=== PATIENT | female | born 1930 | race Caucasian/White ===

== ENCOUNTER 2019-04-17 19:08 | Emergency (ER) | payer MEDICARE ==
--- NOTE | 2019-04-17 19:38 | RADIOLOGY REPORT (SQ) ---
EXAM DESCRIPTION: CT HEAD WITHOUT COMPLETED DATE/TIME: 04/17/2019 7:20 pm REASON FOR STUDY: STROKE ALERT COMPARISON: 05/05/2012 TECHNIQUE: Axial images acquired through the brain without intravenous contrast. Images reviewed wit h bone, brain and subdural windows. Images stored on PACS. All CT scanners at this facility use dose modulation, iterative reconstruction, and/or weight based d osing when appropriate to reduce radiation dose to as low as reasonably achievable (ALARA). [facility]: Dose Right [facility]: CareDose [facility]: Dose Right [facility]: Teradose 4D [facility]: Smart GoodData RADIATION DOSE: CT Rad equipment meets quality standard of care and radiation dose reduction techniq ues were employed. CTDIvol: 53.2 - 55.2 mGy. DLP: 2074 mGy-cm.. LIMITATIONS: None. FINDINGS: VENTRICLES: Stable. CEREBRUM: Similar calcified left occipital lobe lesion. No hemorrhage. No midline shift. Small vess el ischemic changes in the white matter. No evidence for acute large vessel infarction. CEREBELLUM: No masses. No hemorrhage. No alteration of density. No evidence for acute infarction. EXTRA-AXIAL SPACES: No fluid collections. ORBITS AND GLOBE: No intra- or extraconal masses. Normal contour of globe without masses. CALVARIUM: No fracture. PARANASAL SINUSES: No fluid or mucosal thickening. SOFT TISSUES: No mass or hematoma. OTHER: No other significant finding. IMPRESSION: Similar calcified left occipital lobe lesion. No hemorrhage. No midline shift. Small v essel ischemic changes in the white matter. No evidence for acute large vessel infarction. EVIDENCE OF ACUTE STROKE: NO. COMMENT: Results called to Dr. Valladares at 1932 hours. TECHNICAL DOCUMENTATION: JOB ID: [id number] [place]-72 Quality ID # [id number]: Final reports with documentation of one or more dose reduction techniques (e.g., Au tomated exposure control, adjustment of the mA and/or kV according to patient size, use of iterative reconstruction technique) 2010 [employer]- All Rights Reserved Reading location - IP/workstation name: [employer]
[2019-04-17 19:45] LABS: INTERNATIONAL RATION (INR) 0.99; PROTHROMBIN TIME 13.1 SEC (11.4-15.4)
--- NOTE | 2019-04-17 19:45 | RADIOLOGY REPORT (SQ) ---
EXAM DESCRIPTION: CHEST SINGLE VIEW COMPLETED DATE/TIME: 04/17/2019 7:22 pm REASON FOR STUDY: STROKE ALERT COMPARISON: 04/26/2015 TECHNIQUE: Single frontal radiographic view of the chest acquired. NUMBER OF VIEWS: One view. LIMITATIONS: None. FINDINGS: LUNGS AND PLEURA: No pneumothorax. Left basilar consolidation - pleural effusion. Increa sed interstitial changes. MEDIASTINUM AND HILAR STRUCTURES: Stable. HEART AND VASCULAR STRUCTURES: Stable. BONES: No acute findings. HARDWARE: None in the chest. OTHER: No other significant finding. IMPRESSION: Left basilar consolidation - pleural effusion. TECHNICAL DOCUMENTATION: JOB ID: [id number] [place]-72 2010 [employer]- All Rights Reserved Reading location - IP/workstation name: [email or web address]
[2019-04-17 19:46] LABS: PARTIAL THROMBOPLASTIN TIME 28.2 SEC (23.5-35.8)
[2019-04-17 19:58] LABS: ALBUMIN 3.4 g/dL (3.5-5.0); ALKALINE PHOSPHATASE 96 U/L (38-126); ANION GAP 5 (5-19); ASPARTATE AMINO TRANSFERASE 21 U/L (14-36); BILIRUBIN,DIRECT 0.3 mg/dL (0.0-0.4); BILIRUBIN,TOTAL 0.4 mg/dL (0.2-1.3); BLOOD UREA NITROGEN 17 mg/dL (7-20); CALCIUM 8.6 mg/dL (8.4-10.2); CARBON DIOXIDE 31 mmol/L (22-30); CHLORIDE 102 mmol/L (98-107); CREATINE KINASE 20 U/L (30-135); GLUCOSE 108 mg/dL (75-110); TOTAL PROTEIN 6.7 g/dL (6.3-8.2)
[2019-04-17 20:00] LABS: ABSOLUTE EOSINOPHILS # (AUTO) 0.2 10^3/uL (0.0-0.6); ABSOLUTE LYMPHOCYTES (AUTO) 1.3 10^3/uL (0.5-4.7); ABSOLUTE MONOCYTES (AUTO) 0.4 10^3/uL (0.1-1.4); ABSOLUTE NEUT (AUTO) 4.1 10^3/uL (1.7-8.2); BASOPHILS % (AUTO) 0.6 % (0-2); EOSINOPHILS % (AUTO) 3.7 % (0-6); HEMATOCRIT 36.2 % (36.0-47.0); HEMOGLOBIN 11.7 g/dL (12.0-15.5); LYMPHOCYTES % (AUTO) 21.1 % (13-45); MEAN CORPUSCULAR HEMOGLOBIN 28.8 pg (27.0-33.4); MEAN CORPUSCULAR HGB CONC 32.3 g/dL (32.0-36.0); MEAN CORPUSCULAR VOLUME 89 fl (80-97); MONOCYTES % (AUTO) 6.7 % (3-13); PLATELET COUNT 252 10^3/uL (150-450); RED BLOOD COUNT 4.06 10^6/uL (3.72-5.28); RED CELL DISTRIBUTION WIDTH 14.7 % (11.5-14.0); SEGMENTED NEUTROPHILS % (AUTO) 67.9 % (42-78); TOTAL CELLS COUNTED % (AUTO) 100 %; WHITE BLOOD COUNT 6.1 10^3/uL (4.0-10.5)
--- NOTE | 2019-04-17 20:11 | ER Document Report ---
ED General - General Chief Complaint: S/S of Possible Stroke Stated Complaint: STROKE LIKE SYMPTOMS Time Seen by Provider: 04/17/19 19:23 Primary Care Provider: FEDERICA ONEAL FNP-BC [NO LOCAL MD] - Follow up as needed MINNIE CASTRO MD [Primary Care Provider] - Follow up tomorrow Mode of Arrival: Ambulatory Information source: Patient Notes: 88-year-old female with dementia, bipolar disorder, congestive heart failure, hyperlipidemia, atrial fibrillation, hypertension, coronary artery disease presents via EMS from home with concern for left-sided weakness. Patient is unable to answer questions or follow commands which the son reports is her baseline. The son is at the bedside and states that approximately 4-hour ago they attempted to walk the patient to the bathroom when she seemed weaker than usual. He states that the patient walks with assistance only and usually only requires minimal help but today she seemed more off balance. Patient is a DO NOT RESUSCITATE as far as chest compressions but son states that intubation is allowed. He denies any recent illness, fever, vomiting, dysuria. He states the patient has otherwise been well. He also states that the patient is able to complain of pain if she has it. Son reports that his goal is to bring the patient home with him as he is able to provide home health and physical therapy. TRAVEL OUTSIDE OF THE [place] IN LAST 30 DAYS: No - HPI Onset: This afternoon Quality of pain: No pain Associated symptoms: Weakness Similar symptoms previously: Yes - Related Data Allergies/Adverse Reactions: haloperidol [From Haldol] Allergy (Verified 06/12/12 19:02) haloperidol lactate [From Haldol] Allergy (Verified 06/12/12 19:02) Past Medical History - General Information source: Relative, Emergency Med Personnel, [facility] Records Cannot obtain history due to: Dementia - Social History Smoking Status: Never Smoker Frequency of alcohol use: None Drug Abuse: None Lives with: Family Family History: Reviewed & Not Pertinent Patient has suicidal ideation: No Patient has homicidal ideation: No - Past Medical History Cardiac Medical History: Reports: Hx Atrial Fibrillation, Hx Congestive Heart Failure, Hx Hypertension Denies: Hx Coronary Artery Disease, Hx Heart Attack, Hx Hypercholesterolemia, Hx Peripheral Vascular Disease, Hx Heart Murmur Pulmonary Medical History: Reports: Hx Respiratory Failure Denies: Hx Tuberculosis Renal/ Medical History: Denies: Hx End Stage Renal Disease, Hx Kidney Stones, Hx Peritoneal Dialysis Musculoskeletal Medical History: Reports Hx Arthritis Psychiatric Medical History: Reports: Hx Bipolar Disorder, Hx Dementia Past Surgical History: Reports: Hx Bowel Surgery - bowel resection, Hx Kidney (Renal Surgery) - 1 kidney removed. Denies: Hx Pacemaker - Immunizations Hx Diphtheria, Pertussis, Tetanus Vaccination: Yes Review of Systems - Review of Systems -: Yes ROS unobtainable due to patient's medical condition Constitutional: Weakness. denies: Fever, Recent illness Physical Exam - Vital signs Vitals: Pulse Resp BP Pulse Ox 76 16 166/75 H 95 04/17/19 19:18 04/17/19 19:18 04/17/19 19:18 04/17/19 19:18 - Notes Notes: PHYSICAL EXAMINATION: GENERAL: Thin, frail, cachectic HEAD: Atraumatic, normocephalic. EYES: Pupils equal round and reactive to light, extraocular movements intact, conjunctiva are normal. ENT: Nares patent, oropharynx clear without exudates. Moist mucous membranes. NECK: Normal range of motion, supple without lymphadenopathy LUNGS: Breath sounds clear to auscultation bilaterally and equal. No wheezes rales or rhonchi. HEART: Regular rate and rhythm without murmurs ABDOMEN: Soft, nontender, nondistended abdomen. No guarding, no rebound. No masses appreciated. Female : deferred Musculoskeletal: Normal range of motion, no pitting or edema. No cyanosis. NEUROLOGICAL: patient is alert, awake but will not follow commands. She will occasionally follow her son's commands. NIH unable to obtain due to patient's being uncooperative. PSYCH: Agitated SKIN: Warm, Dry, normal turgor, no rashes or lesions noted. Course - Re-evaluation Re-evalutation: Laboratory 04/17/19 04/17/19 04/17/19 19:15 19:15 19:15 WBC RBC Hgb Hct MCV MCH MCHC RDW Plt Count Seg Neutrophils % Lymphocytes % Monocytes % Eosinophils % Basophils % Absolute Neutrophils Absolute Lymphocytes Absolute Monocytes Absolute Eosinophils Absolute Basophils PT 13.1 INR 0.99 APTT 28.2 Sodium 137.6 Potassium 5.0 Chloride 102 Carbon Dioxide 31 H Anion Gap 5 BUN 17 Creatinine 0.58 Est GFR ( Amer) > 60 Est GFR (Non-Af Amer) > 60 Glucose 108 POC Glucose Calcium 8.6 Total Bilirubin 0.4 Direct Bilirubin 0.3 Neonat Total Bilirubin Not Reportable Neonat Direct Bilirubin Not Reportable Neonat Indirect Bili Not Reportable AST 21 ALT 7 Alkaline Phosphatase 96 Creatine Kinase 20 L CK-MB (CK-2) < 0.22 Troponin I < 0.012 Total Protein 6.7 Albumin 3.4 L 04/17/19 04/17/19 19:50 19:58 WBC 6.1 RBC 4.06 Hgb 11.7 L Hct 36.2 MCV 89 MCH 28.8 MCHC 32.3 RDW 14.7 H Plt Count 252 Seg Neutrophils % 67.9 Lymphocytes % 21.1 Monocytes % 6.7 Eosinophils % 3.7 Basophils % 0.6 Absolute Neutrophils 4.1 Absolute Lymphocytes 1.3 Absolute Monocytes 0.4 Absolute Eosinophils 0.2 Absolute Basophils 0.0 PT INR APTT Sodium Potassium Chloride Carbon Dioxide Anion Gap BUN Creatinine Est GFR ( Amer) Est GFR (Non-Af Amer) Glucose POC Glucose 112 H Calcium Total Bilirubin Direct Bilirubin Neonat Total Bilirubin Neonat Direct Bilirubin Neonat Indirect Bili AST ALT Alkaline Phosphatase Creatine Kinase CK-MB (CK-2) Troponin I Total Protein Albumin Chest X-Ray 04/17/19 00:00 IMPRESSION: Left basilar consolidation - pleural effusion. Head CT 04/17/19 00:00 IMPRESSION: Similar calcified left occipital lobe lesion. No hemorrhage. No midline shift. Small vessel ischemic changes in the white matter. No evidence for acute large vessel infarction. EVIDENCE OF ACUTE STROKE: NO. Temp Pulse Resp BP Pulse Ox 76 15 169/59 H 97 04/17/19 19:18 04/17/19 21:01 04/17/19 21:01 04/17/19 21:01 04/17/19 21:14 88-year-old female with dementia, bipolar disorder, congestive heart failure, hyperlipidemia, atrial fibrillation, hypertension, coronary artery disease presents via EMS from home with concern for left-sided weakness. Patient is unable to answer questions or follow commands which the son reports is her baseline. The son is at the bedside and states that approximately 4-5 hours ago they attempted to walk the patient to the bathroom when she seemed weaker than usual. He states that the patient walks with assistance only and usually only requires minimal help but today she seemed more off balance. Patient is a DO NOT RESUSCITATE as far as chest compressions but son states that intubation is allowed. He denies any recent illness, fever, vomiting, dysuria. He states the patient has otherwise been well. He also states that the patient is able to complain of pain if she has it. Son reports that his goal is to bring the patie nt home with him as he is able to provide home health and physical therapy. Vital signs reviewed and patient is mildly hypertensive but afebrile and not hypoxic. She is awake, alert and uncooperative with history and exam but does not appear to be in any acute distress. Discussed incidental finding of left- sided pleural effusion with the patient's son who is the primary caregiver and he states that they have been backing off of her Lasix recently. He does not want admission to the hospital and would like to follow-up with his primary care physician Dr. Marlo Sainz. He is requesting discharge prior to completion of labs. I have agreed to call the son if pending urinalysis requires treatment at [phone] 04/18/19 01:50 04/18/19 01:51 - Vital Signs Vital signs: Temp Pulse Resp BP Pulse Ox 76 17 169/59 H 96 04/17/19 19:18 04/17/19 21:30 04/17/19 21:01 04/17/19 21:30 - Laboratory Result Diagrams: 04/17/19 19:50 04/17/19 19:15 Laboratory results interpreted by me: 04/17/19 04/17/19 04/17/19 19:15 19:50 19:58 Hgb 11.7 L RDW 14.7 H Carbon Dioxide 31 H POC Glucose 112 H Creatine Kinase 20 L Albumin 3.4 L - Diagnostic Test Radiology reviewed: Image reviewed, Reports reviewed - EKG Interpretation by Me EKG shows normal: Sinus rhythm Rate: Normal [place]/QRS: LBBB When compared to previous EKG there are: No significant change Discharge - Discharge Clinical Impression: Weakness, Stroke-like symptoms, Pleural effusion Dementia Qualifiers: Dementia type: unspecified type Dementia behavioral disturbance: without behavioral disturbance Qualified Code(s): F03.90 - Unspecified dementia without behavioral disturbance Condition: Fair Disposition: HOME, SELF-CARE Instructions: Dementia ([facility]), Pleural Effusion ([facility]), Stroke ([facility]), Weakness ([facility]) Additional Instructions: Follow up with your [id number] hours for further care or return to the ED IMMEDIATELY if symptoms worsen or you have any concerns. If you cannot afford to follow up with your primary care physician a list of low cost clinics have been provided at the end of your discharge papers as well. Most prescribed medications have multiple side effects. The safest thing to do is when filling your prescription speak to your pharmacist regarding possible interactions with your normal home medications and over the counter medications such as Ibuprofen, Tylenol, Benadryl. If you experience any symptoms that cause you discomfort or concern you should discontinue the medication immediately and return to the emergency room or call your primary care physician. Forms: Elevated Blood Pressure Referrals: FEDERICA ONEAL FNP- [NO LOCAL MD] - Follow up as needed MINNIE CASTRO MD [Primary Care Provider] - Follow up tomorrow
[2019-04-17 20:12] LABS: CREATINE KINASE MB < 0.22 ng/mL (<4.55); TROPONIN I < 0.012 ng/mL
[2019-04-17 21:09] LABS: APPEARANCE,URINE CLEAR; BILIRUBIN,URINE NEGATIVE (NEGATIVE); COLOR,URINE YELLOW; GLUCOSE, URINE NEGATIVE (NEGATIVE); KETONES,URINE NEGATIVE (NEGATIVE); LEUKOCYTE ESTERASE,URINE NEGATIVE (NEGATIVE); NITRITE,URINE NEGATIVE (NEGATIVE); PROTEIN,URINE NEGATIVE (NEGATIVE); URINE SPECIFIC GRAVITY 1.008; UROBILINOGEN,URINE NEGATIVE mg/dL (<2.0)
[2019-04-17 21:13] VITALS: BP 169/59
[2019-04-17 21:16] LABS: ADD MANUAL MICROSCOPIC YES
[2019-04-17 21:17] LABS: AMORPHOUS SEDIMENT,UR 1+; RBC,URINE RARE /HPF
--- NOTE | 2019-04-18 08:06 | EKG REPORT ---
SEVERITY:- ABNORMAL ECG - SINUS RHYTHM LEFT BUNDLE BRANCH BLOCK : Confirmed by: Bassam Bear MD 18-Apr-2019 08:06:10
== END 2019-04-17 22:00 | disposition home or self-care (01) ==
LOC: ER 19:08
DX: F03.90 Unspecified dementia, unspecified severity, without behavioral disturbance, psychotic disturbance, mood disturbance, and anxiety (principal); J90 Pleural effusion, not elsewhere classified; R53.1 Weakness; I50.9 Heart failure, unspecified; I11.0 Hypertensive heart disease with heart failure; I25.10 Atherosclerotic heart disease of native coronary artery without angina pectoris
CPT/HCPCS: 36415; 51701; 70450; 71045; 80053; 81001; 82550; 82553; 82962; 84484; 85025; 85610; 85730; 93005; 93010; 99285

== ENCOUNTER 2019-05-04 04:44 | Inpatient (IN) | payer MEDICARE ==
[2019-05-04] MEDS ORDERED: NORMAL SALINE 500 ML IV ONE ×2 (05:05→05:06)
--- NOTE | 2019-05-04 05:11 | ER Document Report ---
ED General <PAM EID Cristian - Last Filed: 05/04/19 05:39> - General TRAVEL OUTSIDE OF THE [place] IN LAST 30 DAYS: No <KARLA URIBE - Last Filed: 05/04/19 08:41> - General Stated Complaint: DIFFICULTY BREATHING Time Seen by Provider: 05/04/19 05:01 Notes: Patient is an 88-year-old female that comes emergency department by EMS from home for chief complaint of weakness and decreased responsiveness since last night. Patient was found to be hypoxic at 84% on room air, tachycardic, hypotensive. EMS unable to get vascular access. Son did come to bedside, he was with the patient, he states she had a stroke 2 weeks ago but she does not have any of the left-sided deficit she had at that time, she has a history of CHF, bipolar, medications include digoxin, methadone, Risperdal, aspirin. She i s normal blood thinner, she does not have a history of diabetes or [place]. He states that he does not have DNR paperwork but he is power of dental office coordinator and he does not want to perform CPR or intubate her. (KARLA URIBE) - Related Data Allergies/Adverse Reactions: haloperidol [From Haldol] Allergy (Verified 06/12/12 19:02) haloperidol lactate [From Haldol] Allergy (Verified 06/12/12 19:02) Past Medical History - General Information source: Relative, Emergency Med Personnel - Social History Smoking Status: Never Smoker Frequency of alcohol use: None Drug Abuse: None Lives with: Family Family History: Reviewed & Not Pertinent - Past Medical History Cardiac Medical History: Reports: Hx Atrial Fibrillation, Hx Congestive Heart Failure, Hx Hypertension Denies: Hx Coronary Artery Disease, Hx Heart Attack, Hx Hypercholesterolemia, Hx Peripheral Vascular Disease, Hx Heart Murmur Pulmonary Medical History: Reports: Hx Respiratory Failure Denies: Hx Tuberculosis Renal/ Medical History: Denies: Hx End Stage Renal Disease, Hx Kidney Stones, Hx Peritoneal Dialysis Musculoskeletal Medical History: Reports Hx Arthritis Psychiatric Medical History: Reports: Hx Bipolar Disorder, Hx Dementia Past Surgical History: Reports: Hx Bowel Surgery - bowel resection, Hx Kidney (Renal Surgery) - 1 kidney removed. Denies: Hx Pacemaker - Immunizations Hx Diphtheria, Pertussis, Tetanus Vaccination: Yes <KARLA URIBE - Last Filed: 05/04/19 08:41> Review of Systems - Review of Systems Constitutional: See HPI EENT: No symptoms reported Cardiovascular: No symptoms reported Respiratory: See HPI Gastrointestinal: No symptoms reported Genitourinary: No symptoms reported Female Genitourinary: No symptoms reported Musculoskeletal: No symptoms reported Skin: No symptoms reported Hematologic/Lymphatic: No symptoms reported Neurological/Psychological: No symptoms reported <RONYKARLA - Last Filed: 05/04/19 08:41> Physical Exam <KARLA URIBE - Last Filed: 05/04/19 08:41> - Vital signs Vitals: Resp 05/04/19 04:50 - Notes Notes: GENERAL: Extremely frail, pale, in respiratory distress, very toxic and ill in appearance HEAD: Normocephalic, atraumatic. EYES: Pupils equal, round, and reactive to light. Extraocular movements intact. ENT: Oral mucosa dry, tongue midline. Oropharynx unremarkable. Airway patent. Nares patent, no nasal septal hematoma LUNGS: Labored breathing, tachypnea, some rhonchi and decreased breath sounds in the mid to lower left lung brown, otherwise clear. HEART: Tachycardic, normal rhythm, no murmur ABDOMEN: Soft, non-tender. Non-distended. GENITOURINARY: No concerning external findings EXTREMITIES: Moves all 4 extremities spontaneously. No edema, normal radial and dorsalis pedis pulses bilaterally. No cyanosis. BACK: no cervical, thoracic, lumbar midline tenderness. NEUROLOGICAL: Alert responsive, answers yes to every question normal speech. SKIN: Pale (BENJAMIN URIBEAN) Course - Laboratory Result Diagrams: 05/04/19 04:55 05/04/19 04:55 <PAM EID - Last Filed: 05/04/19 05:39> - Laboratory Result Diagrams: 05/04/19 04:55 05/04/19 04:55 <KARLA URIBE - Last Filed: 05/04/19 08:41> - Re-evaluation Re-evalutation: 05/04/19 05:39 I personally and independently obtained patient history and examined the patient and have reviewed the APC's note, reviewed, discussed and agree with their assessment and plan. HISTORY OF PRESENT ILLNESS: Patient is a 88-year-old female that presents to the emergency department for chief complaint of weakness. Patient's son at bedside who is power of dental office coordinator. PHYSICAL EXAMINATION: Vital signs reviewed, nursing noted reviewed. GENERAL: Ill-appearing, cachectic, in moderate distress HEAD: Atraumatic, normocephalic. EYES: Eyes appear normal, conjunctiva are normal. ENT: nares patent, oropharynx clear without exudates. Dry mucous membranes. NECK: Normal range of motion, supple without lymphadenopathy LUNGS: Breath sounds diminished to auscultation bilaterally and equal. No wheezes rales or rhonchi. HEART: Tachycardic rate and regular rhythm without murmurs ABDOMEN: Soft, nontender, normoactive bowel sounds. No rebound, guarding, or rigidity. No masses appreciated. EXTREMITIES: Nontender, good range of motion, no pitting or edema. NEUROLOGICAL: Alert, oriented to person PSYCH: Normal mood, normal affect. SKIN: Warm, Dry, normal turgor, no rashes or lesions noted on exposed MEDICAL DECISION MAKING: Patient presented tachycardic and hypotensive in respiratory distress and hypoxic. She was put on BiPAP for respiratory support. Patient's presenting picture is consistent with septic shock. She was started on a 30 mg /kg bolus of IV normal saline for her tachycardia and hypotension. I did have a lengthy code conversation with patient's son who is her power of dental office coordinator. He wishes for her to be DNR and DO NOT INTUBATE. Patient's son is okay with her receiving central line, blood products, antibiotics and pressors if needed. Patient started on broad-spectrum antibiotics and will be admitted for further management Please review detail APC documentation. *Note is created using voice recognition software and may contain spelling, syntax or grammatical errors. (PAM EID) Patient is extremely ill-appearing on presentation. On 5 L nasal cannula patient was at 91% pulse oxygenation with labored breathing, as result she was placed on BiPAP. She is hypotensive in the 80s systolic, tachycardic in the 140s, afebrile. Started her on initial 500 cc bolus, she will be given a second 1 afterwards. She is only 29 kg. 22-gauge peripheral IV and 18-gauge periphe ral IV in the foot were started. Patient initially responded to fluids and now her map has continued to decline. CBC shows leukocytosis at 39.5 with 11% bands. Borderline renal functioning. Potassium is 5.9. QTC slightly prolonged. Giving treatments including insulin, calcium gluconate, dextrose. Patient has been started on vancomycin and Zosyn for broad-spectrum coverage. Patient has been evaluated more than once by Dr. Eid. She discussed with the son, DNR paperwork was performed. However he is still hoping that she will survive this, he is hoping for central line and pressors if needed. Because her map is consistently under 65 now despite fluid resuscitation I did place a central line and Levophed was started. After all interventions were completed patient actually significantly improved, heart rate is now 90, blood pressure 100 systolic, pulse oxygen saturation 97%, and she does not have labored breathing any longer. Chest x-ray indicating probable pneumonia. Urinalysis pending but urine appears infected on Weathers catheter. Will discuss with hospitalist for admission. Discussed details with the son at bedside. Urinalysis does show significant infection, culture placed. 05/04/19 07:30 Discussed with Luiz Powell PA-C, patient accepted for admission to the ICU. (KARLA URIBE) - Vital Signs Vital signs: Temp Pulse Resp BP Pulse Ox 18 93/43 L 98 05/04/19 07:05 05/04/19 07:05 05/04/19 07:05 - Laboratory Laboratory results interpreted by me: 05/04/19 05/04/19 05/04/19 04:55 04:55 06:36 WBC 39.5 H* Hgb 10.8 L Hct 32.8 L RDW 14.7 H Seg Neuts % (Manual) 81 H Band Neutrophils % 11 H Lymphocytes % (Manual) 7 L Monocytes % (Manual) 1 L Abs Neuts (Manual) 36.3 H Sodium 134.0 L Potassium 5.9 H BUN 54 H Creatinine 1.43 H Est GFR ( Amer) 42 L Est GFR (MDRD) Non-Af 35 L Glucose 116 H Direct Bilirubin 0.7 H AST 52 H Albumin 3.0 L Lipase 16.6 L Urine Protein >=500 H Urine Blood SMALL H Ur Leukocyte Esterase MODERATE H Procedures - Central Line right femoral Time completed: 06:30 Consent obtained: Yes - son, verbal Central line pre-insertion: Sterile PPE donned, Chloraprep applied, Sterile drapes applied Central line lumen type: Triple Anesthetic type: 1% Lidocaine mL's of anesthesia: 3 Ultrasound guided: Yes Line secured with sutures: Yes Central line post-insertion: Blood return from lumens, Biopatch applied, Sutured, Sterile dressing applied Number of attempts: 1 Complications: No <KARLA URIBE - Last Filed: 05/04/19 08:41> Critical Care Note - Critical Care Note Total time excluding time spent on procedures (mins): 50 - Hypotension, tachycardia, hypoxia, pneumonia, urinary tract infection, hyperkalemia, septic shock <KARLA URIBE - Last Filed: 05/04/19 08:41> - Critical Care Note Comments: Please allow 50 minutes of critical care time excluding time spent on procedures for evaluation and management of patient who is critically ill with septic shock, hypoxia, hypotension, tachycardia, hyperkalemia, pneumonia, urinary tract infection. Patient interventions including BiPAP, treatment of hyperkalemia, treatment with antibiotics, IV fluid resuscitation, multiple re-evaluations, time spent discussing with family member, consultation and admission to the ICU. (KARLA URIBE) Discharge <PAM EID - Last Filed: 05/04/19 05:39> - Discharge Admitting Provider: Luiz Powell PA-C Unit Admitted: ICU <KARLA URIBE - Last Filed: 05/04/19 08:41> - Discharge Clinical Impression: Septic shock, Hypoxia, Hyperkalemia, Bandemia Pneumonia Qualifiers: Pneumonia type: due to unspecified organism Laterality: left Lung location: lower lobe of lung Qualified Code(s): J18.1 - Lobar pneumonia, unspecified organism Urinary tract infection Qualifiers: Urinary tract infection type: site unspecified Hematuria presence: without hematuria Qualified Code(s): N39.0 - Urinary tract infection, site not specified Condition: Fair Disposition: ADMITTED INPATIENT
[2019-05-04 05:16] LABS: VENOUS BLOOD BASE EXCESS -1.2 mmol/L; VENOUS BLOOD HCO3 23.8 mmol/L (20-32); VENOUS BLOOD PCO2 40.9 mmHg (35-63); VENOUS BLOOD PH 7.38 (7.30-7.42)
[2019-05-04 05:25] LABS: HEMATOCRIT 32.8 % (36.0-47.0); HEMOGLOBIN 10.8 g/dL (12.0-15.5); MEAN CORPUSCULAR HEMOGLOBIN 28.9 pg (27.0-33.4); MEAN CORPUSCULAR HGB CONC 32.8 g/dL (32.0-36.0); MEAN CORPUSCULAR VOLUME 88 fl (80-97); PLATELET COUNT 248 10^3/uL (150-450); RED BLOOD COUNT 3.73 10^6/uL (3.72-5.28); RED CELL DISTRIBUTION WIDTH 14.7 % (11.5-14.0)
[2019-05-04] MEDS ORDERED: VANCOMYCIN HCL INJ 1000 MG VIAL IV ONE (05:28)
[2019-05-04] MEDS ORDERED: PIPERACILLIN/TAZOBACTAM 2.25 GM VIAL IV ONE (05:30)
[2019-05-04 05:38] LABS: ALKALINE PHOSPHATASE 83 U/L (38-126); ANION GAP 10 (5-19); ASPARTATE AMINO TRANSFERASE 52 U/L (14-36); BILIRUBIN,DIRECT 0.7 mg/dL (0.0-0.4); BILIRUBIN,TOTAL 0.9 mg/dL (0.2-1.3); BLOOD UREA NITROGEN 54 mg/dL (7-20); CALCIUM 8.7 mg/dL (8.4-10.2); CARBON DIOXIDE 22 mmol/L (22-30); CHLORIDE 102 mmol/L (98-107); CREATINE KINASE 36 U/L (30-135); DIGOXIN 1.41 ng/mL (0.8-2.0); GLUCOSE 116 mg/dL (75-110); POTASSIUM 5.9 mmol/L (3.6-5.0); TOTAL PROTEIN 6.9 g/dL (6.3-8.2)
--- NOTE | 2019-05-04 05:39 | RADIOLOGY REPORT (SQ) ---
EXAM DESCRIPTION: X-ray single view chest. CLINICAL HISTORY: 88 years Female, hypoxia COMPARISON: 04/17/2019 and 04/26/2015 TECHNIQUE: Single portable x-ray view of the chest performed on 05/04/2019 at 5:17 AM FINDINGS: There is ongoing volume loss in the left lung base consistent with pleural fluid, atelectasis and possibly pneumonia. The right lung is well-expanded and clear. There is no evidence of a pneumothorax. The patient's chin projects over the left lung apex. The cardiac silhouette is normal in size and configuration. The mediastinal contours are normal. No acute osseous abnormality is identified. No focal soft tissue abnormalities are seen. Lines and tubes: None. IMPRESSION: 1. Volume loss in the left lung base similar when compared to the prior study likely representing a combination of pleural fluid, atelectasis and possibly pneumonia. 2. The right lung is clear.
[2019-05-04] MEDS ORDERED: INSULIN REG, HUMAN 100 UNIT/ML 3 ML VIAL (PYX) IV ONE (05:59)
[2019-05-04] MEDS ORDERED: DEXTROSE 50%-WATER 25 GM/50 ML DISP.SYRIN IV ONE (05:59)
[2019-05-04] MEDS ORDERED: CALCIUM GLUCONATE 1000 MG/10 ML INJ IV ONE ×2 (05:59→06:16)
[2019-05-04] MEDS ORDERED: DEXTROSE 5%-WATER 250 ML with NOREPINEPHRINE BITARTRATE 4 MG IV PRN ×2 (06:02)
[2019-05-04 06:08] LABS: ABSOLUTE LYMPHOCYTES# (MANUAL) 2.8 10^3/uL (0.5-4.7); ABSOLUTE MONOCYTES # (MANUAL) 0.4 10^3/uL (0.1-1.4); ANISOCYTOSIS SLIGHT; BAND NEUTROPHILS % (MANUAL) 11 % (3-5); BASOPHILS % (MANUAL) 0 % (0-2); EOSINOPHILS % (MANUAL) 0 % (0-6); HYPOCHROMASIA 1+; LYMPHOCYTES % (MANUAL) 7 % (13-45); MONOCYTES % (MANUAL) 1 % (3-13); SEGMENTED NEUTROPHILS % (MAN) 81 % (42-78); TOTAL CELLS COUNTED 100
[2019-05-04 06:09] LABS: PLATELET COMMENT ADEQUATE; WHITE BLOOD COUNT 39.5 10^3/uL (4.0-10.5)
[2019-05-04] MEDS ORDERED: NOREPINEPHRINE BITARTRATE INJ/PF 4 MG/4 ML SDV IV ONE (06:12)
[2019-05-04 07:15] LABS: APPEARANCE,URINE TURBID; BILIRUBIN,URINE NEGATIVE (NEGATIVE); COLOR,URINE YELLOW; GLUCOSE, URINE NEGATIVE (NEGATIVE); KETONES,URINE NEGATIVE (NEGATIVE); LEUKOCYTE ESTERASE,URINE MODERATE (NEGATIVE); NITRITE,URINE NEGATIVE (NEGATIVE); PROTEIN,URINE >=500 mg/dL (NEGATIVE); URINE SPECIFIC GRAVITY 1.012; UROBILINOGEN,URINE NEGATIVE mg/dL (<2.0)
[2019-05-04] MEDS ORDERED: DEXTROSE 40% GEL 15 GM TUBE PO PRN ×2 (08:29)
[2019-05-04] MEDS ORDERED: DEXTROSE 50%-WATER 25 GM/50 ML DISP.SYRIN IV PRN ×2 (08:29)
[2019-05-04] MEDS ORDERED: GLUCAGON,HUMAN RECOMB 1 MG INJ SUBCUT PRN (08:29)
[2019-05-04] MEDS ORDERED: TEMAZEPAM 15 MG CAPSULE PO PRN (08:46)
[2019-05-04 09:01] LABS: INTERNATIONAL RATION (INR) 1.25; PROTHROMBIN TIME 15.8 SEC (11.4-15.4)
--- NOTE | 2019-05-04 09:04 | PDOC H&P ---
History of Present Illness Admission Date/PCP: 05/04/19 07:55 MINNIE CASTRO MD Patient admitted 05/04/2019 History of Present Illness: SHANNON BEAN is a 88 year old female who was brought into the emergency room for weakness and decreased responsiveness since last night. Cording to the ER history the son on his mother last night and found her to be weak as responsive. Per the son the patient had a stroke 2 weeks ago but does not have any deficit from that event. Son works in the medical field When EMS arrived at the patient's house she was hypoxic with an O2 sat of 84% on room air tachycardic and hypotensive. In the emergency room he was found to be hypotensive with systolic in the 80s and tachycardic at 140. Temperature in the emergency room was 98.3. Upon arrival in the emergency room the patient was treated aggressively with bolus of fluids x2, 30 mg/kg, patient was placed on BiPAP Patient has responded well to IV fluids now appears to be stable to go to the ICU for septic shock secondary to either pneumonia or urosepsis. Family has power of business attorney has made her a DNR Past Medical History Cardiac Medical History: Reports: Atrial Fibrillation, Congestive Heart Failure, Hypertension Denies: Coronary Artery Disease, Myocardial Infarction, Hyperlipidema, Peripheral Vascular Disease, Heart Murmur Pulmonary Medical History: Reports: Respiratory Failure Denies: Tuberculosis Neurological Medical History: Reports: Ischemic CVA Renal/ Medical History: Denies: End Stage Renal Disease Musculoskeltal Medical History: Reports: Arthritis Psychiatric Medical History: Reports: Bipolar Disorder, Dementia Past Surgical History Past Surgical History: Denies: Pacemaker Social History Lives with: Family Smoking Status: Never Smoker Hx Recreational Drug Use: No Hx Prescription Drug Abuse: No - Advance Directive Resuscitation Status: Do Not Resuscitate Surrogate healthcare decision maker:: Son Family History Family History: Reviewed & Not Pertinent Parental Family History Reviewed: No Children Family History Reviewed: No Sibling(s) Family History Reviewed.: No Medication/Allergy Home Medications: Methadone HCl [Dolophine 10 Mg Tablet] 10 mg PO BID 05/05/12 Aspirin [Aspirin 81 mg Chewable Tablet] 81 mg PO DAILY 06/12/12 Ciprofloxacin HCl [Cipro 250 mg Tablet] 250 mg PO BID 06/15/12 Metoprolol Tartrate [Lopressor 25 Mg Tablet] 37.5 mg PO Q12 06/15/12 Allergies/Adverse Reactions: haloperidol [From Haldol] Allergy (Verified 06/12/12 19:02) haloperidol lactate [From Haldol] Allergy (Verified 06/12/12 19:02) Review of Systems Constitutional: ABSENT: chills, fever(s), headache(s), weight gain, weight loss Cardiovascular: ABSENT: chest pain, dyspnea on exertion, edema, orthropnea, palpitations Respiratory: ABSENT: cough, hemoptysis Neurological: ABSENT: abnormal gait, abnormal speech, confusion, dizziness, focal weakness, syncope Psychiatric: ABSENT: anxiety, depression, homidical ideation, suicidal ideation Physical Exam Vital Signs: Temp Pulse Resp BP Pulse Ox 18 93/43 L 98 05/04/19 07:05 05/04/19 07:05 05/04/19 07:05 Intake & Output 05/03/19 05/04/19 05/05/19 06:59 06:59 06:59 Intake Total 1005 18 Balance 1005 18 Weight 29.03 kg General appearance: PRESENT: severe distress Head exam: PRESENT: atraumatic, normocephalic Neck exam: PRESENT: other - Previous trach site Respiratory exam: PRESENT: clear to auscultation hang, other - Patient currently on BiPAP. ABSENT: rales, rhonchi, wheezes Cardiovascular exam: PRESENT: RRR. ABSENT: diastolic murmur, rubs, systolic murmur Neurological exam: PRESENT: other - She will open eyes to command patient will answer simple questions Skin exam: PRESENT: skin tears, other - Patient has multiple areas of bruising as well as fungus on her toenails Results Laboratory Results: 05/04/19 04:55 05/04/19 04:55 05/04/19 05/04/19 05/04/19 04:55 04:55 04:55 WBC 39.5 H* RBC 3.73 Hgb 10.8 L Hct 32.8 L MCV 88 MCH 28.9 MCHC 32.8 RDW 14.7 H Plt Count 248 Seg Neutrophils % Not Reportable VBG pH VBG pCO2 VBG HCO3 VBG Base Excess Sodium 134.0 L Potassium 5.9 H Chloride 102 Carbon Dioxide 22 Anion Gap 10 BUN 54 H Creatinine 1.43 H Est GFR ( Amer) 42 L Glucose 116 H Lactic Acid 2.0 Calcium 8.7 Total Bilirubin 0.9 AST 52 H Alkaline Phosphatase 83 Total Protein 6.9 Albumin 3.0 L Lipase 16.6 L Urine Color Urine Appearance Urine pH Ur Specific [place] Urine Protein Urine Glucose (UA) Urine Ketones Urine Blood Urine Nitrite Ur Leukocyte Esterase Urine WBC (Auto) Urine RBC (Auto) 05/04/19 05/04/19 04:55 06:36 WBC RBC Hgb Hct MCV MCH MCHC RDW Plt Count Seg Neutrophils % VBG pH 7.38 VBG pCO2 40.9 VBG HCO3 23.8 VBG Base Excess -1.2 Sodium Potassium Chloride Carbon Dioxide Anion Gap BUN Creatinine Est GFR ( Amer) Glucose Lactic Acid Calcium Total Bilirubin AST Alkaline Phosphatase Total Protein Albumin Lipase Urine Color YELLOW Urine Appearance TURBID Urine pH 7.0 Ur Specific [place] 1.012 Urine Protein >=500 H Urine Glucose (UA) NEGATIVE Urine Ketones NEGATIVE Urine Blood SMALL H Urine Nitrite NEGATIVE Ur Leukocyte Esterase MODERATE H Urine WBC (Auto) >182 Urine RBC (Auto) 73 05/04/19 05/04/19 04:55 04:55 Creatine Kinase 36 Troponin I 0.018 Impressions: Chest X-Ray 05/04/19 05:02 IMPRESSION: 1. Volume loss in the left lung base similar when compared to the prior study likely representing a combination of pleural fluid, atelectasis and possibly pneumonia. 2. The right lung is clear. Assessment and Plan - Diagnosis (1) Hyperkalemia Is this a current diagnosis for this admission?: Yes Plan: Patient's potassium level in the ER 5.9 patient has received calcium as well as insulin as well as IV fluids. According to the home meds patient is on no potassium supplements (2) Hypoxia Is this a current diagnosis for this admission?: Yes Plan: Arrival at the home by EMS found her O2 sat to be 84% on room air ,patient's current saturations 98% on BiPAP (3) Pneumonia Qualifiers: Pneumonia type: due to unspecified organism Laterality: left Lung location: lower lobe of lung Qualified Code(s): J18.1 - Lobar pneumonia, unspecified organism Is this a current diagnosis for this admission?: Yes Plan: By x-ray patient has what appears to be a left lower lobe pneumonia, although sh e does have atelectasis area as well. Patient is currently on vancomycin and Zosyn (4) Septic shock Is this a current diagnosis for this admission?: Yes Plan: Patient has 2 sources for sepsis one his urine and 2 is pneumonia. Patient was hypotensive and tachycardic when she arrived in the ER. Patient was also hypoxic. Patient also has an elevated white count of 39.5 (5) Urinary tract infection Qualifiers: Urinary tract infection type: site unspecified Hematuria presence: without hematuria Qualified Code(s): N39.0 - Urinary tract infection, site not specified Is this a current diagnosis for this admission?: Yes Plan: Patient's urine showed protein greater than 500 small amount of blood moderate amount of leukocytes or nitrates, many WBC clumps - Time Time Spent with patient: 25-34 minutes
[2019-05-04] MEDS ORDERED: VANCOMYCIN HCL 0 MG in DEXTROSE 5%-WATER 250 ML IV NR (09:15)
--- NOTE | 2019-05-04 09:30 | EKG REPORT ---
SEVERITY:- ABNORMAL ECG - SINUS TACHYCARDIA FIRST DEGREE AV BLOCK LEFT BUNDLE BRANCH BLOCK LOW VOLTAGE IN FRONTAL LEADS PROBABLE LVH WITH SECONDARY REPOL ABNRM ST DEPRESSION, PROBABLY RATE RELATED : Confirmed by: Lilia Boyer MD 04-May-2019 09:29:26
[2019-05-04] MEDS ORDERED: METOPROLOL SUCCINATE 25 MG TAB.SR.24H PO SCH (10:00)
[2019-05-04] MEDS: FAMOTIDINE INJ/PF 20 MG/2 ML SDV IV SCH ×2 (11:12→21:23)
[2019-05-04] MEDS: DIGOXIN 0.125 MG TABLET PO SCH (11:12)
[2019-05-04] MEDS: METHADONE HCL 10 MG TABLET PO SCH ×2 (11:12→17:31)
[2019-05-04] MEDS: RISPERIDONE 1 MG TABLET PO SCH (11:15)
[2019-05-04] MEDS ORDERED: PIPERACILLIN SODIUM/TAZOBACTAM 4.5 GM in NORMAL SALINE 100 ML IV SCH (12:00)
[2019-05-04] MEDS: DEXTROSE 5%-WATER 250 ML with NOREPINEPHRINE BITARTRATE 4 MG IV PRN ×4 (12:50→21:24)
[2019-05-04] MEDS: PIPERACILLIN SODIUM/TAZOBACTAM 2.25 GM in NORMAL SALINE 50 ML IV SCH ×2 (14:08→21:23)
[2019-05-04] MEDS: HEPARIN SOD (PORCINE) 5,000 UNIT/ML 1 ML VIAL SUBCUT SCH ×2 (14:08→21:44)
--- NOTE | 2019-05-05 00:14 | EKG REPORT ---
SEVERITY:- ABNORMAL ECG - SINUS TACHYCARDIA INCOMPLETE LEFT BUNDLE BRANCH BLOCK LOW VOLTAGE IN FRONTAL LEADS PROBABLE LVH WITH SECONDARY REPOL ABNRM ST DEPRESSION, PROBABLY RATE RELATED : Confirmed by: Lilia Boyer MD 05-May-2019 00:13:34
[2019-05-05] MEDS: DEXTROSE 5%-WATER 250 ML with NOREPINEPHRINE BITARTRATE 4 MG IV PRN ×4 (03:55→13:03)
[2019-05-05] MEDS: HEPARIN SOD (PORCINE) 5,000 UNIT/ML 1 ML VIAL SUBCUT SCH ×3 (05:36→21:35)
[2019-05-05] MEDS: PIPERACILLIN SODIUM/TAZOBACTAM 2.25 GM in NORMAL SALINE 50 ML IV SCH ×3 (05:36→21:35)
[2019-05-05] MEDS: NORMAL SALINE 1000 ML 1,000 ML IV PRN ×2 (05:46→12:57)
[2019-05-05 06:30] LABS: HEMATOCRIT 27.9 % (36.0-47.0); HEMOGLOBIN 9.3 g/dL (12.0-15.5); MEAN CORPUSCULAR HGB CONC 33.4 g/dL (32.0-36.0); MEAN CORPUSCULAR VOLUME 87 fl (80-97); PLATELET COUNT 216 10^3/uL (150-450); RED BLOOD COUNT 3.21 10^6/uL (3.72-5.28); RED CELL DISTRIBUTION WIDTH 14.6 % (11.5-14.0); WHITE BLOOD COUNT 27.6 10^3/uL (4.0-10.5)
[2019-05-05 06:41] LABS: ALBUMIN 2.5 g/dL (3.5-5.0); ALKALINE PHOSPHATASE 100 U/L (38-126); ANION GAP 9 (5-19); ASPARTATE AMINO TRANSFERASE 27 U/L (14-36); BILIRUBIN,DIRECT 0.3 mg/dL (0.0-0.4); BILIRUBIN,TOTAL 0.4 mg/dL (0.2-1.3); BLOOD UREA NITROGEN 38 mg/dL (7-20); CARBON DIOXIDE 23 mmol/L (22-30); CHLORIDE 104 mmol/L (98-107); GLUCOSE 119 mg/dL (75-110); POTASSIUM 3.6 mmol/L (3.6-5.0); TOTAL PROTEIN 5.5 g/dL (6.3-8.2)
[2019-05-05 07:01] LABS: ABSOLUTE MONOCYTES # (MANUAL) 0.8 10^3/uL (0.1-1.4); BAND NEUTROPHILS % (MANUAL) 1 % (3-5); BASOPHILS % (MANUAL) 0 % (0-2); EOSINOPHILS % (MANUAL) 0 % (0-6); LYMPHOCYTES % (MANUAL) 0 % (13-45); MONOCYTES % (MANUAL) 3 % (3-13); SEGMENTED NEUTROPHILS % (MAN) 96 % (42-78); TOTAL CELLS COUNTED 100
[2019-05-05 07:03] LABS: ANISOCYTOSIS 1+; HELMET CELLS SLIGHT; OVALOCYTES SLIGHT; PLATELET COMMENT ADEQUATE; POIKILOCYTOSIS 1+; TEAR DROP CELLS SLIGHT; TOXIC GRANULATION 1+; TOXIC VACUOLATION PRESENT
--- NOTE | 2019-05-05 10:16 | Progress Note Acknowledgement ---
Progress Note Acknowledgement Progess Note Acknowledgement: I, the undersigned member of the medical staff with appropriate privileges and with supervisory authority over [Jonathan Moya], a dependent practice allied health professional, acknowledge that I have reviewed the progress notes entered on this patient, and in my professional judgment believe that the assessment made and/or any care evidenced was appropriate
--- NOTE | 2019-05-05 10:36 | PDOC PROGRESS REPORT ---
Subjective Progress Note for:: 05/05/19 Subjective:: 05/05/2019 no complaints this a.m. Reason For Visit: SEPSIS Physical Exam Vital Signs: Temp Pulse Resp BP Pulse Ox 101.3 F H 108 H 13 126/87 H 98 05/05/19 08:00 05/05/19 08:00 05/05/19 08:00 05/05/19 08:00 05/05/19 08:00 Intake & Output 05/04/19 05/05/19 05/06/19 06:59 06:59 06:59 Intake Total 1005 930 64 Output Total 835 75 Balance 1005 95 -11 Weight 29.03 kg 37.2 kg General appearance: PRESENT: no acute distress, well-developed, well-nourished Neck exam: ABSENT: carotid bruit, JVD, lymphadenopathy, thyromegaly Respiratory exam: PRESENT: clear to auscultation hang. ABSENT: rales, rhonchi, wheezes Cardiovascular exam: PRESENT: bradycardia Pulses: PRESENT: +1 pedal pulses bilateral Vascular exam: PRESENT: normal capillary refill GI/Abdominal exam: PRESENT: normal bowel sounds, soft. ABSENT: distended, guarding, mass, organolmegaly, rebound, tenderness Extremities exam: PRESENT: full ROM. ABSENT: calf tenderness, clubbing, pedal edema Neurological exam: PRESENT: alert, awake, oriented to person, oriented to time Psychiatric exam: PRESENT: appropriate affect, normal mood. ABSENT: homicidal ideation, suicidal ideation Skin exam: PRESENT: dry, intact, warm, other - Multiple skin tears on upper extremities. ABSENT: cyanosis, rash Results Laboratory Results: 05/05/19 05:30 05/05/19 05:30 05/04/19 05/05/19 05/05/19 04:55 05:30 05:30 WBC 39.5 H* 27.6 H RBC 3.73 3.21 L Hgb 10.8 L 9.3 L Hct 32.8 L 27.9 L MCV 88 87 MCH 28.9 29.0 MCHC 32.8 33.4 RDW 14.7 H 14.6 H Plt Count 248 216 Seg Neutrophils % Not Reportable Sodium 135.8 L Potassium 3.6 Chloride 104 Carbon Dioxide 23 Anion Gap 9 BUN 38 H Creatinine 0.96 Est GFR ( Amer) > 60 Glucose 119 H Calcium 8.0 L Magnesium 2.2 Total Bilirubin 0.4 AST 27 Alkaline Phosphatase 100 Total Protein 5.5 L Albumin 2.5 L 05/04/19 05/04/19 05/04/19 04:55 04:55 04:55 Creatine Kinase 36 Troponin I 0.018 NT-Pro-B Natriuret Pep 45626 H Impressions: Chest X-Ray 05/04/19 05:02 IMPRESSION: 1. Volume loss in the left lung base similar when compared to the prior study likely representing a combination of pleural fluid, atelectasis and possibly pneumonia. 2. The right lung is clear. Assessment and Plan - Diagnosis (1) Septic shock Is this a current diagnosis for this admission?: Yes Plan: Patient has 2 sources for sepsis one his urine and 2 is pneumonia. Patient was hypotensive and tachycardic when she arrived in the ER. Patient was also hypoxic. Patient also has an elevated white count of 39.5 05/05/2019-patient had a moderate leukocyte esterase in her urine and a possible left lower lobe pneumonia. Patient has gram-negative rods in her preliminary blood cultures. She is on Zosyn at this time. She also is on vancomycin which I will continue to have final cultures. Urine culture is not growing anything at this moment but we will continue to follow. White count is improved this morning we will continue IV vancomycin and Zosyn at this time (2) Hyperkalemia Is this a current diagnosis for this admission?: Yes Plan: Patient's potassium level in the ER 5.9 patient has received calcium as well as insulin as well as IV fluids. According to the home meds patient is on no potassium supplements 05/05/2019-potassium level down to 3.6 this morning. We will continue to follow with daily CMP's (3) Hypoxia Is this a current diagnosis for this admission?: Yes Plan: Arrival at the home by EMS found her O2 sat to be 84% on room air ,patient's current saturations 98% on BiPAP May 05, 2019 patient continues to improve at this time. She is on 2 L nasal cannula satting mid 90s. Will continue BiPAP as needed. Continue supportive measures as needed as well. (4) Pneumonia Qualifiers: Pneumonia type: due to unspecified organism Laterality: left Lung location: lower lobe of lung Qualified Code(s): J18.1 - Lobar pneumonia, unspecified organism Is this a current diagnosis for this admission?: Yes Plan: By x-ray patient has what appears to be a left lower lobe pneumonia, although she does have atelectasis area as well. Patient is currently on vancomycin and Zosyn 05/05/2019-chest x-ray shows possible left lower lobe pneumonia with atelectasis. Patient is currently on Zosyn and does have positive blood cultures for gram- negative rods. We will continue current antibiotic therapy of Zosyn and vancomycin until blood cultures have finalized (5) Urinary tract infection Qualifiers: Urinary tract infection type: site unspecified Hematuria presence: without hematuria Qualified Code(s): N39.0 - Urinary tract infection, site not specified Is this a current diagnosis for this admission?: Yes Plan: Patient's urine showed protein greater than 500 small amount of blood moderate amount of leukocytes or nitrates, many WBC clumps May 05, 2019-urine with moderate leukocyte esterase. Urine culture negative first day. Patient remains on Zosyn. Will follow (6) Bandemia Is this a current diagnosis for this admission?: Yes Plan: 05/05/2019-patient with gram-negative rods in her blood cultures x2. We will continue Zosyn at this time as well as vancomycin will repeat blood cultures in the a.m. (7) Acute kidney injury Is this a current diagnosis for this admission?: Yes Plan: 05/05/2019-patient presented to the ER with acute kidney injury secondary to sepsis. Patient was given 30 mL/kg followed with maintenance fluid at this point her creatinine has normalized. Continue to follow daily CMP's (8) Anemia Is this a current diagnosis for this admission?: Yes Plan: 05/05/2019-chronic but a little worse this morning. I suspect this is from hemodilution. Patient does not require blood transfusion at this time. We will continue to follow (9) Leukocytosis Is this a current diagnosis for this admission?: Yes Plan: 05/05/2019-white count initially 39.5 on admission now down to 27.6. Patient does have gram-negative rods in blood cultures at this time we will continue Zosyn and vancomycin. (10) Multifocal atrial tachycardia Is this a current diagnosis for this admission?: Yes Plan: 05/05/2019-patient on chronic digoxin from home. This morning her cardiac rhythm is going between a sinus rhythm to a multifocal atrial tachycardia rate 105-110. Almost looks like a flutter wave pattern. Patient on home digit said before we will repeat dig level and bolused with digit appropriate. Patient remains septic with bacteremia. Zosyn continues. Repeat BC in am. - Time Time Spent with patient: 25-34 minutes - Inpatient Certification Based on my medical assessment, after consideration of the patient's comorbi dities, presenting symptoms, or acuity I expect that the services needed warrant INPATIENT care.: Yes I certify that my determination is in accordance with my understanding of Medicare's requirements for reasonable and necessary INPATIENT services [42 CFR 412.3e].: Yes Medical Necessity: Other - IV fluids, levophed
[2019-05-05] MEDS ORDERED: ACETAMINOPHEN 325 MG TABLET ONE (10:42)
[2019-05-05] MEDS: RISPERIDONE 1 MG TABLET PO SCH (10:46)
[2019-05-05] MEDS: DIGOXIN 0.125 MG TABLET PO SCH (10:46)
[2019-05-05] MEDS: METHADONE HCL 10 MG TABLET PO SCH ×2 (10:46→17:53)
[2019-05-05] MEDS: FAMOTIDINE INJ/PF 20 MG/2 ML SDV IV SCH ×2 (10:46→21:35)
[2019-05-05 11:13] LABS: PATH REVIEW PATHOLOGIST REVIEWED
[2019-05-05] MEDS: METOPROLOL TARTRATE PF/INJ 5 MG/5 ML SDV IV PRN (11:28)
[2019-05-05] MEDS ORDERED: NORMAL SALINE INJ/PF 0.9% 10 ML SDV IV PRN (11:32)
[2019-05-05] MEDS ORDERED: DIGOXIN INJ 0.5 MG/2 ML AMPULE IV SCH (11:45)
[2019-05-05] MEDS ORDERED: DEXTROSE 5%-WATER 500 ML with AMIODARONE HCL 900 MG IV PRN ×2 (12:30)
[2019-05-05] MEDS ORDERED: AMIODARONE HCL 150 MG in DEXTROSE 5%-WATER 100 ML IV ONE (12:30)
[2019-05-05] MEDS ORDERED: DIGOXIN INJ 0.5 MG/2 ML AMPULE IV ONE (13:00)
--- NOTE | 2019-05-05 17:31 | Progress Note ---
Provider Note Provider Note: 05/05/2019-patient becoming tachycardic atrial fibrillation running between low 100s to 140s. Patient on digoxin at this time I gave her extra 0.125 mg this morning and placed patient on amiodarone drip. Rate maintains in the 130s 140s I discussed this with Dr. Boyer at this time we will wean off Levophed Reginaldo ce patient on Cristian-Synephrine. Patient only 37 kg received massive fluids for sepsis protocol continue to give fluids at 100 mL an hour. Slight rales in the bases. I have discussed this with patient's family about the need for fluids and possibility of fluid overload. Patient is a DNR/DNI.
[2019-05-05] MEDS ORDERED: VANCOMYCIN HCL 500 MG in DEXTROSE 5%-WATER 100 ML IV SCH (18:00)
[2019-05-05] MEDS: DEXTROSE 5%-WATER 250 ML with PHENYLEPHRINE HCL 40 MG IV PRN ×2 (18:42)
[2019-05-06] MEDS: NORMAL SALINE 1000 ML 1,000 ML IV PRN ×4 (00:30→21:14)
[2019-05-06 04:22] LABS: HEMATOCRIT 25.6 % (36.0-47.0); HEMOGLOBIN 8.5 g/dL (12.0-15.5); MEAN CORPUSCULAR HEMOGLOBIN 28.8 pg (27.0-33.4); MEAN CORPUSCULAR HGB CONC 33.2 g/dL (32.0-36.0); MEAN CORPUSCULAR VOLUME 87 fl (80-97); PLATELET COUNT 168 10^3/uL (150-450); RED BLOOD COUNT 2.95 10^6/uL (3.72-5.28); RED CELL DISTRIBUTION WIDTH 14.7 % (11.5-14.0); WHITE BLOOD COUNT 19.1 10^3/uL (4.0-10.5)
[2019-05-06 04:45] LABS: ALBUMIN 2.1 g/dL (3.5-5.0); ALKALINE PHOSPHATASE 83 U/L (38-126); ANION GAP 5 (5-19); ASPARTATE AMINO TRANSFERASE 19 U/L (14-36); BILIRUBIN,DIRECT 0.4 mg/dL (0.0-0.4); BILIRUBIN,TOTAL 0.5 mg/dL (0.2-1.3); BLOOD UREA NITROGEN 27 mg/dL (7-20); CARBON DIOXIDE 22 mmol/L (22-30); CHLORIDE 108 mmol/L (98-107); GLUCOSE 99 mg/dL (75-110); POTASSIUM 3.3 mmol/L (3.6-5.0); TOTAL PROTEIN 4.9 g/dL (6.3-8.2)
[2019-05-06 04:52] LABS: ABSOLUTE LYMPHOCYTES# (MANUAL) 0.4 10^3/uL (0.5-4.7); ABSOLUTE MONOCYTES # (MANUAL) 0.4 10^3/uL (0.1-1.4); BASOPHILS % (MANUAL) 0 % (0-2); EOSINOPHILS % (MANUAL) 0 % (0-6); LYMPHOCYTES % (MANUAL) 2 % (13-45); MONOCYTES % (MANUAL) 2 % (3-13); SEGMENTED NEUTROPHILS % (MAN) 96 % (42-78); TOTAL CELLS COUNTED 100
[2019-05-06 04:53] LABS: ANISOCYTOSIS SLIGHT; HELMET CELLS SLIGHT; OVALOCYTES SLIGHT; PLATELET COMMENT ADEQUATE; POIKILOCYTOSIS SLIGHT; TOXIC GRANULATION 1+; TOXIC VACUOLATION PRESENT
[2019-05-06 05:14] LABS: CALCIUM 6.9 mg/dL (8.4-10.2)
[2019-05-06] MEDS: HEPARIN SOD (PORCINE) 5,000 UNIT/ML 1 ML VIAL SUBCUT SCH ×3 (05:53→21:03)
[2019-05-06] MEDS: PIPERACILLIN SODIUM/TAZOBACTAM 2.25 GM in NORMAL SALINE 50 ML IV SCH (05:54)
[2019-05-06] MEDS ORDERED: VANCOMYCIN HCL 500 MG in DEXTROSE 5%-WATER 100 ML IV SCH (06:00)
[2019-05-06] MEDS ORDERED: POTASSI CL 20 MEQ/50 ML RIDER 20 MEQ/50 ML RTUPB IV ONE (06:32)
[2019-05-06] MEDS: POTASSIUM CHLORIDE 20 MEQ/50 ML RTU IV SCH ×2 (06:38→08:29)
[2019-05-06] MEDS ORDERED: PHENYLEPHRINE HCL INJ/PF 10 MG/1 ML SDV ONE (06:43)
[2019-05-06] MEDS: DEXTROSE 5%-WATER 250 ML with PHENYLEPHRINE HCL 40 MG IV PRN ×4 (06:48→20:30)
[2019-05-06] MEDS: METOPROLOL TARTRATE PF/INJ 5 MG/5 ML SDV IV PRN (08:28)
[2019-05-06] MEDS ORDERED: BISACODYL 10 MG SUPP.RECT PR ONE (09:30)
[2019-05-06] MEDS: CEFTRIAXONE 1 GM/D5W RTU 1 GM/50 ML RTUPB IV SCH (10:43)
[2019-05-06] MEDS: METHADONE HCL 10 MG TABLET PO SCH ×2 (10:45→18:43)
[2019-05-06] MEDS: METOPROLOL TARTRATE 25 MG TABLET PO SCH ×2 (10:48→21:04)
[2019-05-06] MEDS: DIGOXIN 0.125 MG TABLET PO SCH (10:48)
[2019-05-06] MEDS: RISPERIDONE 1 MG TABLET PO SCH (10:49)
[2019-05-06] MEDS: FAMOTIDINE INJ/PF 20 MG/2 ML SDV IV SCH ×2 (10:49→21:03)
[2019-05-06 13:13] LABS: ANION GAP 7 (5-19); BLOOD UREA NITROGEN 25 mg/dL (7-20); CALCIUM 7.2 mg/dL (8.4-10.2); CARBON DIOXIDE 20 mmol/L (22-30); CHLORIDE 109 mmol/L (98-107); GLUCOSE 106 mg/dL (75-110); POTASSIUM 4.1 mmol/L (3.6-5.0)
--- NOTE | 2019-05-06 13:25 | PDOC PROGRESS REPORT ---
Subjective Progress Note for:: 05/06/19 Subjective:: This is an 88 year old female who was brought in due to weakness and decreased responsiveness. In the ER, she was found to be hypoxic, tachycardic and hypotensive. She was admitted and treated for septic shock secondary to pneumonia versus urinary tract infection. Patient was initially started on levophed. Apparently, she went into atrial fibrillation with RVR and she was started on amiodarone drip per cardio recommendations. Her Levophed was also switched to Cristian-Synephrine. Patient had episodes of tachycardia overnight and she received IV Lopressor early this morning to which she responded. She is currently on amiodarone and Cristian-Synephrine drips. Upon encounter, patient appears comfortable denies any chest pain or shortness of breath. Reason For Visit: SEPSIS Physical Exam Vital Signs: Temp Pulse Resp BP Pulse Ox 99.1 F 121 H 21 H 113/42 L 100 05/06/19 08:00 05/06/19 10:00 05/06/19 10:00 05/06/19 10:00 05/06/19 10:00 Intake & Output 05/05/19 05/06/19 05/07/19 06:59 06:59 06:59 Intake Total 930 2545 1275 Output Total 835 1105 75 Balance 95 1440 1200 Weight 82 lb 0.191 oz 89 lb 8.123 oz General appearance: PRESENT: no acute distress, thin Head exam: PRESENT: atraumatic, normocephalic Eye exam: PRESENT: conjunctiva pink, EOMI, PERRLA. ABSENT: scleral icterus Ear exam: PRESENT: normal external ear exam Mouth exam: PRESENT: moist, tongue midline Neck exam: ABSENT: carotid bruit, JVD, lymphadenopathy, thyromegaly Respiratory exam: PRESENT: rhonchi. ABSENT: rales, wheezes Cardiovascular exam: PRESENT: irregular rhythm, tachycardia Pulses: PRESENT: normal dorsalis pedis pul GI/Abdominal exam: PRESENT: normal bowel sounds, soft. ABSENT: distended, gu arding, mass, organolmegaly, rebound, tenderness Rectal exam: PRESENT: deferred Neurological exam: PRESENT: alert, awake, CN II-XII grossly intact. ABSENT: motor sensory deficit Results Laboratory Results: 05/06/19 03:57 05/06/19 03:57 05/06/19 05/06/19 03:57 03:57 WBC 19.1 H RBC 2.95 L Hgb 8.5 L Hct 25.6 L MCV 87 MCH 28.8 MCHC 33.2 RDW 14.7 H Plt Count 168 Seg Neutrophils % Not Reportable Sodium 135.4 L Potassium 3.3 L Chloride 108 H Carbon Dioxide 22 Anion Gap 5 BUN 27 H Creatinine 0.79 Est GFR ( Amer) > 60 Glucose 99 Calcium 6.9 L* Magnesium 2.1 Total Bilirubin 0.5 AST 19 Alkaline Phosphatase 83 Total Protein 4.9 L Albumin 2.1 L 05/04/19 04:55 Blood Blood Culture - Final Proteus Mirabilis 05/04/19 05/04/19 05/04/19 04:55 04:55 04:55 Creatine Kinase 36 Troponin I 0.018 NT-Pro-B Natriuret Pep 12689 H 05/05/19 11:40 Creatine Kinase Troponin I 0.052 NT-Pro-B Natriuret Pep Impressions: Chest X-Ray 05/04/19 05:02 IMPRESSION: 1. Volume loss in the left lung base similar when compared to the prior study likely representing a combination of pleural fluid, atelectasis and possibly pneumonia. 2. The right lung is clear. Assessment and Plan - Diagnosis (1) Septic shock Is this a current diagnosis for this admission?: Yes Plan: Likely from UTI. Possible pneumonia as well. Both urine and blood cultures are growing Proteus. Will de-escalate and switch Zosyn to Rocephin. Will try to wean off cristian today. (2) Acute kidney injury Is this a current diagnosis for this admission?: Yes Plan: Resolved with IV fluids. (3) Hyperkalemia Is this a current diagnosis for this admission?: Yes Plan: Resolved. Related to CAITLIN. (4) Pneumonia Qualifiers: Pneumonia type: due to unspecified organism Laterality: left Lung loc ation: lower lobe of lung Qualified Code(s): J18.1 - Lobar pneumonia, unspecified organism Is this a current diagnosis for this admission?: Yes Plan: CXR shows possible left lower lobe pneumonia. (5) Urinary tract infection Qualifiers: Urinary tract infection type: site unspecified Hematuria presence: without hematuria Qualified Code(s): N39.0 - Urinary tract infection, site not specified Is this a current diagnosis for this admission?: Yes Plan: As per number 1. (6) Atrial fibrillation with RVR Is this a current diagnosis for this admission?: Yes Plan: Wean off amiodarone drip. Will resume home Lopressor. Will further discuss anticoagulation with DPOA. - Time Time Spent with patient: 25-34 minutes
[2019-05-06] MEDS ORDERED: NA PHOS,M-B/NA PHOS,DI-BA (ADULT) 133 ML ENEMA PR ONE (16:00)
--- NOTE | 2019-05-06 18:56 | EKG REPORT ---
SEVERITY:- ABNORMAL ECG - ATRIAL FIBRILLATION INCOMPLETE LEFT BUNDLE BRANCH BLOCK BORDERLINE R WAVE PROGRESSION, ANTERIOR LEADS : Confirmed by: Bassam Bear MD 06-May-2019 18:55:49
[2019-05-06] MEDS: DEXTROSE 5%-WATER 250 ML with VASOPRESSIN 100 UNIT IV PRN ×2 (20:35)
[2019-05-07 03:50] LABS: HEMATOCRIT 23.2 % (36.0-47.0); MEAN CORPUSCULAR HEMOGLOBIN 29.1 pg (27.0-33.4); MEAN CORPUSCULAR HGB CONC 33.4 g/dL (32.0-36.0); MEAN CORPUSCULAR VOLUME 87 fl (80-97); PLATELET COUNT 116 10^3/uL (150-450); RED BLOOD COUNT 2.66 10^6/uL (3.72-5.28); WHITE BLOOD COUNT 12.5 10^3/uL (4.0-10.5)
[2019-05-07 03:57] LABS: ALBUMIN 1.9 g/dL (3.5-5.0); ALKALINE PHOSPHATASE 71 U/L (38-126); ANION GAP 5 (5-19); ASPARTATE AMINO TRANSFERASE 17 U/L (14-36); BILIRUBIN,DIRECT 0.4 mg/dL (0.0-0.4); BILIRUBIN,TOTAL 0.4 mg/dL (0.2-1.3); BLOOD UREA NITROGEN 24 mg/dL (7-20); CARBON DIOXIDE 19 mmol/L (22-30); CHLORIDE 112 mmol/L (98-107); GLUCOSE 85 mg/dL (75-110); POTASSIUM 4.1 mmol/L (3.6-5.0); TOTAL PROTEIN 4.1 g/dL (6.3-8.2)
[2019-05-07 04:10] LABS: CALCIUM 6.6 mg/dL (8.4-10.2)
[2019-05-07 04:25] LABS: HEMOGLOBIN 7.7 g/dL (12.0-15.5)
[2019-05-07 04:27] LABS: ABSOLUTE LYMPHOCYTES# (MANUAL) 0.3 10^3/uL (0.5-4.7); ABSOLUTE MONOCYTES # (MANUAL) 0.3 10^3/uL (0.1-1.4); BASOPHILS % (MANUAL) 0 % (0-2); EOSINOPHILS % (MANUAL) 0 % (0-6); LYMPHOCYTES % (MANUAL) 2 % (13-45); MONOCYTES % (MANUAL) 2 % (3-13); SEGMENTED NEUTROPHILS % (MAN) 96 % (42-78); TOTAL CELLS COUNTED 100
[2019-05-07 04:30] LABS: ANISOCYTOSIS SLIGHT; PLATELET CLUMPS PRESENT; PLATELET COMMENT DECREASED; TOXIC VACUOLATION PRESENT
[2019-05-07] MEDS: HEPARIN SOD (PORCINE) 5,000 UNIT/ML 1 ML VIAL SUBCUT SCH ×3 (05:09→21:22)
[2019-05-07] MEDS: NORMAL SALINE 1000 ML 1,000 ML IV PRN ×2 (07:49→20:16)
[2019-05-07] MEDS: FAMOTIDINE INJ/PF 20 MG/2 ML SDV IV SCH ×2 (09:45→21:22)
[2019-05-07] MEDS: CEFTRIAXONE 1 GM/D5W RTU 1 GM/50 ML RTUPB IV SCH (09:45)
[2019-05-07] MEDS: RISPERIDONE 1 MG TABLET PO SCH (09:45)
[2019-05-07] MEDS: METOPROLOL TARTRATE 25 MG TABLET PO SCH ×2 (09:46→21:23)
[2019-05-07] MEDS: DIGOXIN 0.125 MG TABLET PO SCH (09:46)
[2019-05-07] MEDS: METHADONE HCL 10 MG TABLET PO SCH ×2 (09:46→17:51)
--- NOTE | 2019-05-07 10:51 | ST Inp Modified Barium Swallow ---
Medical Diagnosis - Medical Diagnoses Medical Diagnosis Description & ICD-10 Code(s): pneumonia - ICD-10 Tx Diagnosis Coding (1) Dysphagia ICD-10 Code(s): R13.10 - DYSPHAGIA, UNSPECIFIED ST [place] [facility] [place] Date: 05/07/19 Date of Onset: 04/23/19 - approximate onset date - History -: Medical - per EMR: per EMR: patient admitted 05/04/19 with weakness and decreased responsiveness. Patient reportedly had a stroke 2 weeks prior to admission without reported deficits. The patient was not fully evaluated in the hospital for this stroke. Prior medical history includes dementia, CVA, respiratory failure. Chest x-ray shows volume loss of left lung base. Nursing note from 05/06 states that after breakfast the patient's O2 dropped and she had coarse lung sounds. There is suspicion of silent aspiration. Patient is currently on a full liquid diet. At bedside, therapist completed 90 mL swallow screen, patient seen to cough approximately half way through the 90 mL. Medications: Medications Reviewed Allergies: Refer to medical record - Subjective Current Nutritional Means: PO - full liquid diet Current Symptoms: Pneumonia Pain: no signs/symptoms of pain - Objective Assessment: Upright, Left Lateral - Food Trials Food Trials Used: Thin liquids, [place] thick liquids, Pureed, Soft solids The Patient: fed by ST - Assessment Labial Function: Within Functional Limits Lingual Function: Within Functional Limits Mandibular Function: Within Functional Limits Dentition: Partial Velo-Pharyngeal Function: Unremarkable Laryngeal Function: clear voicing - Pharyngeal Stage Initiation of Pharyngeal Stage: Normal Decreased Laryngeal Elevation: No Reduced Velo-Pharyngeal Closure: no Reduced Pressure Generation: No Reduced Tongue Base Retraction: No Pre-Swallowing Pooling in Valleculae: Moderate Reduced Thyro-Hyiod Approximation: Yes - mild Post Swallow Residuals in Valleculae: Mild Pahryngeal Stage Comments: Mildly discoordinated pharyngeal phase of the swallow, resulting in some incomplete airway closure and penetration/aspiration of thin liquids. Penetration was silent, and aspiration stimulated only a delayed, weak cough reaction. - Impression/Summary Laryngeal Penetration: Yes, during swallow - with thin liquids Tracheal Aspiration: yes, delayed cough, during swallow, after swallow - with thin liquids Patient Presents With: Oral stage dysphagia, Pharyngeal stage dysph., Mild- Moderate Risk of Aspiration: Moderate - Recommendations Solid Diet Recommendations: Pureed - attempted small chantal cracker trial, minimal effort to chew, eventually spit out trial. Liquid Diet Recommendations: [place]-Thick Strict Aspitarion Precautions: Yes Dysphagia Therapy with PROCESSING TECHNICIAN: No Recommended Techniques: Fully Upright During Meal, Med Crushed in Applesauce, Small Bites and Sips Other Recommendations: Discussed diet recommendations with RN and provider, Dr. Luo. Provider is in agreement with recommendations, speech pathologist to place diet order per physician direction. - Time Total Time: 20 Total Timed Minutes: 20
--- NOTE | 2019-05-07 12:33 | RADIOLOGY REPORT (SQ) ---
EXAM DESCRIPTION: MONTY SWALLOW COMPLETED DATE/TIME: 05/07/2019 11:09 am REASON FOR STUDY: failed swallow screen history stroke COMPARISON: None. TECHNIQUE: Videofluoroscopic swallowing examination was performed in conjunction with speech pathera kennedy. Videofluoroscopic imaging was obtained and reviewed and these are the findings: RADIATION DOSE: Fluoro time 1.38 minutes 1 images saved to PACS. LIMITATIONS: None FINDINGS: The patient was brought into the fluoro room and placed upright on a modified barium swall ow chair. The patient was then given multiple consistencies mixed with barium to swallow under live fluoroscopic video guidance. According to the Speech Pathologist there was aspiration seen with thin barium. All other consistencies were swallowed without incident. Please refer to the speech patholo gy report for further details. IMPRESSION: ASPIRATION WITH THIN BARIUM. PLEASE SEE SPEECH PATHOLOGIST REPORT FOR OTHER FINDINGS AND RECOMMENDATIONS. COMMENT: None Quality ID [id number]: Final reports for procedures using fluoroscopy that document radiation exposure chaim nilay, or exposure time and number of fluorographic images (if radiation exposure indices are not avail able) TECHNICAL DOCUMENTATION: JOB ID: [id number] [employer]- All Rights Reserved Reading location - IP/workstation name: [email or web address] [id number]
--- NOTE | 2019-05-07 15:28 | PDOC PROGRESS REPORT ---
Subjective Progress Note for:: 05/07/19 Subjective:: This is an 88 year old female who was brought in due to weakness and decreased responsiveness. In the ER, she was found to be hypoxic, tachycardic and hypotensive. She was admitted and treated for septic shock secondary to pneumonia versus urinary tract infection. Patient was initially started on levophed. Apparently, she went into atrial fibrillation with RVR and she was started on amiodarone drip per cardio recommendations. Her Levophed was also switched to Cristian-Synephrine. 05/06: Patient had episodes of tachycardia overnight and she received IV Lopressor early this morning to which she responded. She is currently on amiodarone and Cristian-Synephrine drips. Upon encounter, patient appears comfortable denies any chest pain or shortness of breath. 05/07: No acute event overnight. Heart rate has significantly improved down to the 60s after resuming her p.o. Lopressor. Her knee was switched to vasopressin last night and she is currently on low-dose vasopressin. She is much more responsive today. She appears more comfortable. Reason For Visit: SEPSIS Physical Exam Vital Signs: Temp Pulse Resp BP Pulse Ox 97.2 F 63 11 L 90/52 L 97 05/07/19 14:22 05/07/19 14:00 05/07/19 14:22 05/07/19 14:22 05/07/19 14:00 Intake & Output 05/06/19 05/07/19 05/08/19 06:59 06:59 06:59 Intake Total 2545 2823 1099 Output Total 1105 725 175 Balance 1440 2098 924 Weight 89 lb 8.123 oz 94 lb 2.198 oz General appearance: PRESENT: no acute distress, well-developed, well-nourished Head exam: PRESENT: atraumatic, normocephalic Eye exam: PRESENT: conjunctiva pink, EOMI, PERRLA. ABSENT: scleral icterus Ear exam: PRESENT: normal external ear exam Mouth exam: PRESENT: moist, tongue midline Neck exam: ABSENT: carotid bruit, JVD, lymphadenopathy, thyromegaly Respiratory exam: PRESENT: rhonchi. ABSENT: rales, wheezes Cardiovascular exam: PRESENT: irregular rhythm. ABSENT: diastolic murmur, rubs, systolic murmur Pulses: PRESENT: normal dorsalis pedis pul GI/Abdominal exam: PRESENT: normal bowel sounds, soft. ABSENT: distended, guarding, mass, organolmegaly, rebound, tenderness Rectal exam: PRESENT: deferred Neurological exam: PRESENT: alert, awake. ABSENT: oriented to person, oriented to place, oriented to time Results Laboratory Results: 05/07/19 03:25 05/07/19 03:25 05/07/19 05/07/19 03:25 03:25 WBC 12.5 H RBC 2.66 L Hgb 7.7 L Hct 23.2 L MCV 87 MCH 29.1 MCHC 33.4 RDW 15.0 H Plt Count 116 L Seg Neutrophils % Not Reportable Sodium 136.4 L Potassium 4.1 Chloride 112 H Carbon Dioxide 19 L Anion Gap 5 BUN 24 H Creatinine 0.60 Est GFR ( Amer) > 60 Glucose 85 Calcium 6.6 L* Magnesium 2.1 Total Bilirubin 0.4 AST 17 Alkaline Phosphatase 71 Total Protein 4.1 L Albumin 1.9 L 05/04/19 06:36 Catheterized Urine Urine Culture - Final Proteus Mirabilis 05/04/19 07:43 Blood Blood Culture - Final Proteus Mirabilis 05/04/19 05/04/19 05/04/19 04:55 04:55 04:55 Creatine Kinase 36 Troponin I 0.018 NT-Pro-B Natriuret Pep 41303 H 05/05/19 11:40 Creatine Kinase Troponin I 0.052 NT-Pro-B Natriuret Pep Impressions: Chest X-Ray 05/04/19 05:02 IMPRESSION: 1. Volume loss in the left lung base similar when compared to the prior study likely representing a combination of pleural fluid, atelectasis and possibly pneumonia. 2. The right lung is clear. Modified Barium Swallow 05/07/19 00:00 IMPRESSION: ASPIRATION WITH THIN BARIUM. PLEASE SEE SPEECH PATHOLOGIST REPORT FOR OTHER FINDINGS AND RECOMMENDATIONS. Assessment and Plan - Diagnosis (1) Septic shock Is this a current diagnosis for this admission?: Yes Plan: 05/06: Likely from UTI. Possible pneumonia as well. Both urine and blood cultures are growing Proteus. Will de-escalate and switch Zosyn to Rocephin. Will try to wean off cristian today. 05/07: Cristian switched to vasopressin. Currently on low-dose vaso. Continue Rocephin. Continue to wean off vasopressin. (2) Acute kidney injury Is this a current diagnosis for this admission?: Yes Plan: Resolved with IV fluids. (3) Hyperkalemia Is this a current diagnosis for this admission?: Yes Plan: Resolved. Related to CAITLIN. (4) Pneumonia Qualifiers: Pneumonia type: due to unspecified organism Laterality: left Lung location: lower lobe of lung Qualified Code(s): J18.1 - Lobar pneumonia, unspecified organism Is this a current diagnosis for this admission?: Yes Plan: CXR shows possible left lower lobe pneumonia. (5) Urinary tract infection Qualifiers: Urinary tract infection type: site unspecified Hematuria presence: without hematuria Qualified Code(s): N39.0 - Urinary tract infection, site not specified Is this a current diagnosis for this admission?: Yes Plan: As per number 1. (6) Atrial fibrillation with RVR Is this a current diagnosis for this admission?: Yes Plan: Wean off amiodarone drip. Will resume home Lopressor. Discussed risk and benefits of anticoagulation in length with patient's son. Patient's son/DPOA does express he is amenable to pursuing Xarelto to avoid the inconvenience of frequent INRs with Coumadin. Patient's hemoglobin has slowly been trending down. She does not have clinical signs of gross bleeding. Will check an FOBT. We will hold off on initiating anticoagulation for now. - Time Time Spent with patient: 25-34 minutes
[2019-05-07] MEDS: MIDODRINE HCL 5 MG TABLET PO SCH ×2 (16:17→18:17)
[2019-05-08] MEDS: HEPARIN SOD (PORCINE) 5,000 UNIT/ML 1 ML VIAL SUBCUT SCH ×3 (05:56→21:30)
[2019-05-08] MEDS: NORMAL SALINE 1000 ML 1,000 ML IV PRN ×2 (06:12→16:59)
[2019-05-08 07:03] LABS: ANION GAP 11 (5-19); BLOOD UREA NITROGEN 30 mg/dL (7-20); CARBON DIOXIDE 14 mmol/L (22-30); CHLORIDE 113 mmol/L (98-107); GLUCOSE 107 mg/dL (75-110); POTASSIUM 4.2 mmol/L (3.6-5.0)
[2019-05-08 07:10] LABS: CALCIUM 6.9 mg/dL (8.4-10.2)
--- NOTE | 2019-05-08 08:33 | Progress Note ---
Provider Note Provider Note: ID Consult Note Asked to review patient's chart. Pt not seen or examined. Ms. Bueno is an 88 year old woman with PMH including AF, CHF, CVA, bipolar d/o, and dementia who presented to [facility] on 05/04/19 for generalized weakness and decreased responsiveness. In the ED, she was found to be hypotensive, tachycardic. She was initially afebrile but had a fever up to 103 F the following day 05/05 and up to 100.9 on 05/06. She has not had fevers since then. On admission, the patient was noted to be frail and toxic in appearance with dry oral mucosa, labored breathing, some rhonchi and decreased breath souns to lower left lung brown, no cardiac murmur, no abdominal tenderness, and multiple areas of bruising on her skin along with skin tears. She was managed with BiPAP and was suspected of having sepsis due to either a urinary tract infection or pneumonia. Pt was empirically administered vancomycin and Zosyn, later streamlined to Rocephin based on growth of Proteus mirabilis from both sets of blood cultures drawn on admission, which is susceptible to all agents tested except tetracycline. UCx also grew >100k cfu P. mirabilis with same susceptibility pattern. Imaging included CXR that was read as showing volume loss in L lung base likely representing a combination of pleural fluid, atelectasis and possibly pneumonia. Hospital course also complicated by AF with RVR requiring amiodarone drip and need for vasopressor support. Blood cultures were repeated on 05/06, which are preliminarily reported as having growth of GNRs in 1 bottle of 4. She has had improvement in responsiveness noted most recently and no fever on 05/07. Impression/Recommendations sepsis due to Proteus mirabilis bacteremia from a urinary source - Pt presented with nonlocalizing complaints, limited hx due to AMS but had same organism present in both UCx and BCx, suggesting its origin is from complicated UTI or pyelonephritis that became bacteremic. - Would continue Rocephin. Antimicrobial resistance is not the most likely explanation for continued growth in 1 of 4 bottles on repeat blood cultures from 05/06. Her Proteus isolate was reported susceptible to Rocephin, and Proteus mirabilis is not a species where inducible ampC expression is likely. Rocephin is effective. - GNR bacteremia is usually transient and typically responds rapidly to appropriate antibiotics and source control. If she is not responding as expected after 48-72h of appropriate abx, the question becomes one of source control - is there a complication requiring further intervention, such as a perinephric abscess that might need drainage, for example? Would pursue CT abd/pelvis if she has recurrent fevers or develops other clinical features that suggest she is failing to respond as expected to antibiotic therapy. At least as of most recent notes she appears to be afebrile now x 24h and more responsive. CT abd/pelvis mi ght be reasonable regardless, given the severity of her illness. Marcial Arechiga MD [facility] Infectious Diseases pager [phone]
[2019-05-08] MEDS: MIDODRINE HCL 5 MG TABLET PO SCH ×3 (09:32→17:21)
[2019-05-08] MEDS: FAMOTIDINE INJ/PF 20 MG/2 ML SDV IV SCH ×2 (09:32→21:29)
[2019-05-08] MEDS: METHADONE HCL 10 MG TABLET PO SCH ×2 (09:33→17:21)
[2019-05-08] MEDS: RISPERIDONE 1 MG TABLET PO SCH (09:33)
[2019-05-08] MEDS: METOPROLOL TARTRATE 25 MG TABLET PO SCH ×2 (09:33→21:28)
[2019-05-08] MEDS: CEFTRIAXONE 1 GM/D5W RTU 1 GM/50 ML RTUPB IV SCH (09:33)
[2019-05-08] MEDS: DIGOXIN 0.125 MG TABLET PO SCH (09:34)
[2019-05-08] MEDS ORDERED: POLYETHYLENE GLYCOL 3350 POWDER 17 GM/1 PACKET PO PRN (11:15)
--- NOTE | 2019-05-08 11:18 | RADIOLOGY REPORT (SQ) ---
EXAM DESCRIPTION: CT ABDOMEN NO ORAL OR IV COMPLETED DATE/TIME: 05/08/2019 11:01 am REASON FOR STUDY: r/o perinephric abscess COMPARISON: Cookie swallow 05/07/2019 AP chest 05/04/2019 Three-way abdomen series 06/12/2012 TECHNIQUE: CT scan of the abdomen performed without intravenous contrast and without oral contrast. Images reviewed with lung, soft tissue, and bone windows. Reconstructed coronal and sagittal MPR im ages reviewed. All images stored on PACS. All CT scanners at this facility use dose modulation, iterative reconstruction, and/or weight based d osing when appropriate to reduce radiation dose to as low as reasonably achievable (ALARA). [facility]: Dose Right [facility]: CareDose [facility]: Dose Right [facility]: Teradose 4D [facility]: Smart [employer] RADIATION DOSE: CT Rad equipment meets quality standard of care and radiation dose reduction techniq ues were employed. CTDIvol: 2.4 mGy. DLP: 76 mGy-cm.mGy. LIMITATIONS: Streak artifact throughout the abdomen and pelvis related to dense barium in the colon from cookie swallow. FINDINGS: At the bottom edge of the field of view of today's CT abdomen exam, a massive amount of st ool is seen in the sigmoid colon. Crusher images for CT show massive stool in the rectum. Patient has a fecal impaction. LOWER CHEST: Small right, moderate left pleural effusion with partial collapse of the left lower lobe . NONCONTRASTED LIVER, SPLEEN, ADRENALS: Liver normal size. Biliary ductal dilatation post cholecystec earl. Spleen normal size. Adrenal glands unremarkable PANCREAS: Non contrasted imaging of the pancreas is grossly unremarkable GALLBLADDER: Surgically absent RIGHT KIDNEY AND URETER: Not identified LEFT KIDNEY AND URETER: Grossly normal size, with massive left hydronephrosis and hydroureter down to the bottom edge of the field of view. There are multiple stones in the left kidney is less than 1 c m in size. Distal ureter not included in the field of view, however the massive amount of stool in t he pelvis may be causing left-sided hydronephrosis. This finding was discussed with Dr Luo. AORTA AND RETROPERITONEUM: No aneurysm. No retroperitoneal masses or adenopathy. BOWEL AND PERITONEAL CAVITY: Massive amount of stool in the sigmoid colon protruding up to the level of the umbilicus APPENDIX: Not in the field of view ABDOMINAL WALL: No abdominal wall hernias. BONES: No significant findings. OTHER: No other significant finding. IMPRESSION: Fecal impaction with massive amount of stool in the sigmoid and rectum Left-sided hydronephrosis and hydroureter. Distal ureter and pelvis are not included in the field of view of the axial images. Question urinary outflow obstruction on the left from mass effect from st ool-filled colon. Distal left ureteral stone could not be excluded. Moderate left small right pleural effusion. Biliary ductal dilatation post cholecystectomy. TECHNICAL DOCUMENTATION: JOB ID: [id number] Quality ID # [id number]: Final reports with documentation of one or more dose reduction techniques (e.g., Au tomated exposure control, adjustment of the mA and/or kV according to patient size, use of iterative reconstruction technique) 2010 [employer]- All Rights Reserved Reading location - IP/workstation name: [email or web address]
[2019-05-08] MEDS: CEFTRIAXONE 2 GM/D5W RTU 2 GM/50 ML RTUPB IV SCH (11:57)
[2019-05-08] MEDS: DEXTROSE 5%-WATER 250 ML with VASOPRESSIN 100 UNIT IV PRN ×2 (13:52)
--- NOTE | 2019-05-08 13:56 | PDOC PROGRESS REPORT ---
Subjective Progress Note for:: 05/08/19 Subjective:: This is an 88 year old female who was brought in due to weakness and decreased responsiveness. In the ER, she was found to be hypoxic, tachycardic and hypotensive. She was admitted and treated for septic shock secondary to pneumonia versus urinary tract infection. Patient was initially started on levophed. Apparently, she went into atrial fibrillation with RVR and she was started on amiodarone drip per cardio recommendations. Her Levophed was also switched to Cristian-Synephrine. 05/06: Patient had episodes of tachycardia overnight and she received IV Lopressor early this morning to which she responded. She is currently on amiodarone and Cristian-Synephrine drips. Upon encounter, patient appears comfortable denies any chest pain or shortness of breath. 05/07: Heart rate has significantly improved down to the 60s after resuming her p.o. Lopressor. Her knee was switched to vasopressin last night and she is currently on low-dose vasopressin. She is much more responsive today. She appears more comfortable. 05/08: No acute event overnight. She denies acute complaints. She continues to require low dose of vasopressin. Appreciate ID recommendations. Will pursue CT of the abdomen/pelvis. Reason For Visit: SEPSIS Physical Exam Vital Signs: Temp Pulse Resp BP Pulse Ox 96.8 F L 77 15 110/58 L 100 05/08/19 12:00 05/08/19 12:00 05/08/19 12:00 05/08/19 12:00 05/08/19 12:00 Intake & Output 05/07/19 05/08/19 05/09/19 06:59 06:59 06:59 Intake Total 2823 3092 102 Output Total 725 540 70 Balance 2098 2552 32 Weight 94 lb 2.198 oz 97 lb 3.582 oz General appearance: PRESENT: no acute distress, thin Head exam: PRESENT: atraumatic, normocephalic Eye exam: PRESENT: conjunctiva pink, EOMI, PERRLA. ABSENT: scleral icterus Ear exam: PRESENT: normal external ear exam Mouth exam: PRESENT: moist, tongue midline Neck exam: ABSENT: carotid bruit, JVD, lymphadenopathy, thyromegaly Respiratory exam: PRESENT: clear to auscultation hang. ABSENT: rales, rhonchi, wheezes Cardiovascular exam: PRESENT: RRR. ABSENT: diastolic murmur, rubs, systolic murmur Pulses: PRESENT: normal dorsalis pedis pul GI/Abdominal exam: PRESENT: normal bowel sounds, soft. ABSENT: distended, guarding, mass, organolmegaly, rebound, tenderness Rectal exam: PRESENT: deferred Extremities exam: PRESENT: full ROM. ABSENT: calf tenderness, clubbing, pedal edema Neurological exam: PRESENT: alert, awake Results Laboratory Results: 05/07/19 03:25 05/08/19 03:36 05/08/19 03:36 Sodium 137.6 Potassium 4.2 Chloride 113 H Carbon Dioxide 14 L Anion Gap 11 BUN 30 H Creatinine 0.82 Est GFR ( Amer) > 60 Glucose 107 Calcium 6.9 L* Magnesium 2.4 H 05/04/19 06:36 Catheterized Urine Urine Culture - Final Proteus Mirabilis 05/04/19 05/04/19 05/04/19 04:55 04:55 04:55 Creatine Kinase 36 Troponin I 0.018 NT-Pro-B Natriuret Pep [id number] H 05/05/19 11:40 Creatine Kinase Troponin I 0.052 NT-Pro-B Natriuret Pep Impressions: Chest X-Ray 05/04/19 05:02 IMPRESSION: 1. Volume loss in the left lung base similar when compared to the prior study likely representing a combination of pleural fluid, atelectasis and possibly pneumonia. 2. The right lung is clear. Modified Barium Swallow 05/07/19 00:00 IMPRESSION: ASPIRATION WITH THIN BARIUM. PLEASE SEE SPEECH PATHOLOGIST REPORT FOR OTHER FINDINGS AND RECOMMENDATIONS. Abdomen CT 05/08/19 00:00 IMPRESSION: Fecal impaction with massive amount of stool in the sigmoid and rectum Left-sided hydronephrosis and hydroureter. Distal ureter and pelvis are not included in the field of view of the axial images. Question urinary outflow obstruction on the left from mass effect from stool-filled colon. Distal left ureteral stone could not be excluded. Moderate left small right pleural effusion. Biliary ductal dilatation post cholecystectomy. Assessment and Plan - Diagnosis (1) Septic shock Is this a current diagnosis for this admission?: Yes Plan: 05/06: Likely from UTI. Possible pneumonia as well. Both urine and blood cultures are growing Proteus. Will de-escalate and switch Zosyn to Rocephin. Will try to wean off cristian today. 05/07: Cristian switched to vasopressin. Currently on low-dose vaso. Continue Rocephin. Continue to wean off vasopressin. 05/08: She continues to require low dose of vasopressin. Appreciate ID recommendations. Will pursue CT of the abdomen/pelvis. Will repeat blood cultur es. Increase Rocephin to 2 g daily. (2) Acute kidney injury Is this a current diagnosis for this admission?: Yes Plan: Resolved with IV fluids. (3) Hyperkalemia Is this a current diagnosis for this admission?: Yes Plan: Resolved. Related to CAITLIN. (4) Pneumonia Qualifiers: Pneumonia type: due to unspecified organism Laterality: left Lung location: lower lobe of lung Qualified Code(s): J18.1 - Lobar pneumonia, unspecified organism Is this a current diagnosis for this admission?: Yes Plan: CXR shows possible left lower lobe pneumonia. (5) Urinary tract infection Qualifiers: Urinary tract infection type: site unspecified Hematuria presence: without hematuria Qualified Code(s): N39.0 - Urinary tract infection, site not specified Is this a current diagnosis for this admission?: Yes Plan: As per number 1. (6) Atrial fibrillation with RVR Is this a current diagnosis for this admission?: Yes Plan: Wean off amiodarone drip. Will resume home Lopressor. Discussed risk and benefits of anticoagulation in length with patient's son. Patient's son/DPOA does express he is amenable to pursuing Xarelto to avoid the inconvenience of frequent INRs with Coumadin. Patient's hemoglobin has slowly been trending down. She does not have clinical signs of gross bleeding. Will check an FOBT. We will hold off on initiating anticoagulation for now. - Time Time Spent with patient: 25-34 minutes
[2019-05-08] MEDS: SENNOSIDES/DOCUSATE 8.6-50 MG 1 EACH TABLET PO SCH (17:21)
--- NOTE | 2019-05-08 17:52 | ADVANCED CARE ---
- Diagnosis (1) Septic shock Diagnosis Current: Yes (2) Acute kidney injury Diagnosis Current: Yes (3) Hyperkalemia Diagnosis Current: Yes (4) Pneumonia Diagnosis Current: Yes (5) Urinary tract infection Diagnosis Current: Yes (6) Atrial fibrillation with RVR Diagnosis Current: Yes Resuscitation Status: Do Not Resuscitate Discussion: We discussed CODE STATUS with patient's son and further plan of care. He says patient is DNR/DNI and that they would want to proceed for her going for home hospice but they want her to be optimized and be weaned off pressors and optimally treated for her sepsis before transitioning back to hospice.
[2019-05-09] MEDS: NORMAL SALINE 1000 ML 1,000 ML IV PRN ×2 (02:02→12:05)
[2019-05-09] MEDS: HEPARIN SOD (PORCINE) 5,000 UNIT/ML 1 ML VIAL SUBCUT SCH ×3 (04:59→22:54)
[2019-05-09 05:38] LABS: BLOOD UREA NITROGEN 21 mg/dL (7-20); CALCIUM 7.4 mg/dL (8.4-10.2); GLUCOSE 124 mg/dL (75-110); POTASSIUM 3.8 mmol/L (3.6-5.0)
[2019-05-09 05:44] LABS: ANION GAP 5 (5-19); CARBON DIOXIDE 19 mmol/L (22-30); CHLORIDE 116 mmol/L (98-107)
[2019-05-09 07:05] LABS: HEMATOCRIT 27.2 % (36.0-47.0); HEMOGLOBIN 8.9 g/dL (12.0-15.5); MEAN CORPUSCULAR HEMOGLOBIN 28.7 pg (27.0-33.4); MEAN CORPUSCULAR HGB CONC 32.7 g/dL (32.0-36.0); MEAN CORPUSCULAR VOLUME 88 fl (80-97); RED CELL DISTRIBUTION WIDTH 15.7 % (11.5-14.0)
[2019-05-09 07:06] LABS: ABSOLUTE LYMPHOCYTES (AUTO) 0.3 10^3/uL (0.5-4.7); ABSOLUTE MONOCYTES (AUTO) 0.7 10^3/uL (0.1-1.4); PLATELET COUNT 183 10^3/uL (150-450)
[2019-05-09 07:20] LABS: ABSOLUTE LYMPHOCYTES# (MANUAL) 0.2 10^3/uL (0.5-4.7); ABSOLUTE MONOCYTES # (MANUAL) 0.6 10^3/uL (0.1-1.4); BASOPHILS % (MANUAL) 0 % (0-2); EOSINOPHILS % (MANUAL) 0 % (0-6); LYMPHOCYTES % (MANUAL) 2 % (13-45); MONOCYTES % (MANUAL) 7 % (3-13); SEGMENTED NEUTROPHILS % (MAN) 91 % (42-78); TOTAL CELLS COUNTED 100
[2019-05-09 07:21] LABS: TOXIC GRANULATION SLIGHT
[2019-05-09 07:22] LABS: ANISOCYTOSIS 1+; PLATELET COMMENT ADEQUATE
--- NOTE | 2019-05-09 07:29 | Progress Note ---
Provider Note Provider Note: ID Consult - Brief follow up note Pt not seen or examined. Reviewed chart regarding interval events. Pt appears to have had septic shock and Proteus mirabilis bacteremia as a result of fecal impaction producing an obstruction and hydronephrosis. Hopefully reduction in stool burden following enema and laxatives will allow urinary tract decompression and facilitate drainage of infected urine. vasopressin has been titrated off at this point. Her son is planning to have her go home with hospice. If an oral stepdown agent is required to complete treatment at home, a fluoroquinolone or Bactrim would typically be preferred over an oral beta- lactam. However, QTc was 490, making a fluoroquinolone a poor choice. Bactrim 1 DS BID PO could be considered, although she has renal dysfunction, and chemistries would need to be rechecked a couple of days after starting. To try to balance toxicity and efficacy, oral amoxicilin 500 mg TID might be the most reasonable choice to finish the remainder of treatment at home. Suggest continuing treatment for at least 14 days in total. She has received about 5 days or so antibiotics at this point and may need another 9 or 10 days. Marcial Arechiga MD [facility] Infectious Diseases pager [phone]
[2019-05-09] MEDS: DIGOXIN 0.125 MG TABLET PO SCH (09:36)
[2019-05-09] MEDS: SENNOSIDES/DOCUSATE 8.6-50 MG 1 EACH TABLET PO SCH ×2 (09:37→17:24)
[2019-05-09] MEDS: METOPROLOL TARTRATE 25 MG TABLET PO SCH ×2 (09:37→23:15)
[2019-05-09] MEDS: RISPERIDONE 1 MG TABLET PO SCH (09:37)
[2019-05-09] MEDS: METHADONE HCL 10 MG TABLET PO SCH ×2 (09:39→17:24)
[2019-05-09] MEDS: FAMOTIDINE INJ/PF 20 MG/2 ML SDV IV SCH ×2 (09:40→22:54)
[2019-05-09] MEDS: CEFTRIAXONE 2 GM/D5W RTU 2 GM/50 ML RTUPB IV SCH (12:04)
--- NOTE | 2019-05-09 16:29 | PDOC PROGRESS REPORT ---
Subjective Progress Note for:: 05/09/19 Subjective:: This is an 88 year old female who was brought in due to weakness and decreased responsiveness. In the ER, she was found to be hypoxic, tachycardic and hypotensive. She was admitted and treated for septic shock secondary to pneumonia versus urinary tract infection. Patient was initially started on levophed. Apparently, she went into atrial fibrillation with RVR and she was started on amiodarone drip per cardio recommendations. Her Levophed was also switched to Cristian-Synephrine. 05/06: Patient had episodes of tachycardia overnight and she received IV Lopressor early this morning to which she responded. She is currently on amiodarone and Cristian-Synephrine drips. Upon encounter, patient appears comfortable denies any chest pain or shortness of breath. 05/07: Heart rate has significantly improved down to the 60s after resuming her p.o. Lopressor. Her knee was switched to vasopressin last night and she is currently on low-dose vasopressin. She is much more responsive today. She appears more comfortable. 05/08: She denies acute complaints. She continues to require low dose of vasopressin. Appreciate ID recommendations. 05/09: No acute event overnight. Had 2 large bowel movements yesterday and another large BM this morning. She has been off vasopressin for more than 24 hours now. She denies acute complaints. She will be discharged pending final third blood culture results. Reason For Visit: SEPSIS Physical Exam Vital Signs: Temp Pulse Resp BP Pulse Ox 98.6 F 65 8 L 93/46 L 97 05/09/19 15:07 05/09/19 15:07 05/09/19 15:07 05/09/19 15:07 05/09/19 15:07 Intake & Output 05/08/19 05/09/19 05/10/19 06:59 06:59 06:59 Intake Total 3092 2074 1050 Output Total 540 915 475 Balance 2552 1159 575 Weight 97 lb 3.582 oz 101 lb 13.657 oz General appearance: PRESENT: no acute distress, well-developed, well-nourished Head exam: PRESENT: atraumatic, normocephalic Eye exam: PRESENT: conjunctiva pink, EOMI, PERRLA. ABSENT: scleral icterus Ear exam: PRESENT: normal external ear exam Mouth exam: PRESENT: moist, tongue midline Neck exam: ABSENT: carotid bruit, JVD, lymphadenopathy, thyromegaly Respiratory exam: PRESENT: clear to auscultation hang. ABSENT: rales, rhonchi, wheezes Cardiovascular exam: PRESENT: RRR. ABSENT: diastolic murmur, rubs, systolic murmur Pulses: PRESENT: normal dorsalis pedis pul GI/Abdominal exam: PRESENT: normal bowel sounds, soft. ABSENT: distended, guarding, mass, organolmegaly, rebound, tenderness Rectal exam: PRESENT: deferred Neurological exam: PRESENT: alert, awake, oriented to person Results Laboratory Results: 05/09/19 06:52 05/09/19 05:00 05/09/19 05/09/19 05/09/19 05:00 05:00 05:50 WBC Cancelled Cancelled RBC Cancelled Cancelled Hgb Cancelled Cancelled Hct Cancelled Cancelled MCV Cancelled Cancelled MCH Cancelled Cancelled MCHC Cancelled Cancelled RDW Cancelled Cancelled Plt Count Cancelled Cancelled Seg Neutrophils % Cancelled Cancelled Sodium 140.1 Potassium 3.8 Chloride 116 H Carbon Dioxide 19 L Anion Gap 5 BUN 21 H Creatinine 0.60 Est GFR ( Amer) > 60 Glucose 124 H Calcium 7.4 L 05/09/19 06:52 WBC 9.0 RBC 3.10 L Hgb 8.9 L Hct 27.2 L MCV 88 MCH 28.7 MCHC 32.7 RDW 15.7 H Plt Count 183 Seg Neutrophils % Not Reportable Sodium Potassium Chloride Carbon Dioxide Anion Gap BUN Creatinine Est GFR ( Amer) Glucose Calcium 05/06/19 03:42 Blood Blood Culture - Final Proteus Mirabilis 05/04/19 05/04/19 05/04/19 04:55 04:55 04:55 Creatine Kinase 36 Troponin I 0.018 NT-Pro-B Natriuret Pep 05248 H 05/05/19 11:40 Creatine Kinase Troponin I 0.052 NT-Pro-B Natriuret Pep Impressions: Chest X-Ray 05/04/19 05:02 IMPRESSION: 1. Volume loss in the left lung base similar when compared to the prior study likely representing a combination of pleural fluid, atelectasis and possibly pneumonia. 2. The right lung is clear. Modified Barium Swallow 05/07/19 00:00 IMPRESSION: ASPIRATION WITH THIN BARIUM. PLEASE SEE SPEECH PATHOLOGIST REPORT FOR OTHER FINDINGS AND RECOMMENDATIONS. Abdomen CT 05/08/19 00:00 IMPRESSION: Fecal impaction with massive amount of stool in the sigmoid and rectum Left-sided hydronephrosis and hydroureter. Distal ureter and pelvis are not included in the field of view of the axial images. Question urinary outflow ob struction on the left from mass effect from stool-filled colon. Distal left ureteral stone could not be excluded. Moderate left small right pleural effusion. Biliary ductal dilatation post cholecystectomy. Assessment and Plan - Diagnosis (1) Septic shock Is this a current diagnosis for this admission?: Yes Plan: 05/06: Likely from UTI. Possible pneumonia as well. Both urine and blood cultures are growing Proteus. Will de-escalate and switch Zosyn to Rocephin. Will try to wean off cristian today. 05/07: Cristian switched to vasopressin. Currently on low-dose vaso. Continue Rocephin. Continue to wean off vasopressin. 05/08: She continues to require low dose of vasopressin. Appreciate ID recommendations. Will pursue CT of the abdomen/pelvis. Will repeat blood cultures. Increase Rocephin to 2 g daily. 05/09: Switch Rocephin to PO amoxicillin. (2) Acute kidney injury Is this a current diagnosis for this admission?: Yes Plan: Resolved with IV fluids. (3) Hyperkalemia Is this a current diagnosis for this admission?: Yes Plan: Resolved. Related to CAITLIN. (4) Pneumonia Qualifiers: Pneumonia type: due to unspecified organism Laterality: left Lung location: lower lobe of lung Qualified Code(s): J18.1 - Lobar pneumonia, unsp ecified organism Is this a current diagnosis for this admission?: Yes Plan: CXR shows possible left lower lobe pneumonia. (5) Urinary tract infection Qualifiers: Urinary tract infection type: site unspecified Hematuria presence: without hematuria Qualified Code(s): N39.0 - Urinary tract infection, site not specified Is this a current diagnosis for this admission?: Yes Plan: As per number 1. (6) Atrial fibrillation with RVR Is this a current diagnosis for this admission?: Yes Plan: Wean off amiodarone drip. Will resume home Lopressor. Discussed risk and benefits of anticoagulation in length with patient's son. Patient's son/DPOA does express he is amenable to pursuing Xarelto to avoid the inconvenience of frequent INRs with Coumadin. Patient's hemoglobin has slowly been trending down. She does not have clinical signs of gross bleeding. Will check an FOBT. We will hold off on initiating anticoagulation for now. 05/09: Her hemoglobin has been stable and has actually been trending up. We discussed risks and benefits of anticoagulation again with patient's son. He does say that her PCP has advised against initiating anticoagulation. He prefers to further discuss this with her PCP rather than pursuing anticoagulation now.
[2019-05-09] MEDS: AMOXICILLIN TRIHYDRATE 500 MG CAPSULE PO SCH (22:55)
[2019-05-09] MEDS ORDERED: DILTIAZEM HCL INJ 25 MG/5 ML VIAL ONE (23:26)
[2019-05-09] MEDS ORDERED: DILTIAZEM HCL/D5W 125 MG/125 ML RTUINJ IV PRN (23:41)
[2019-05-09] MEDS ORDERED: DILTIAZEM HCL INJ 25 MG/5 ML VIAL IV ONE (23:45)
[2019-05-10 00:23] LABS: ARTERIAL BLOOD BASE EXCESS -6.6 mmol/L; ARTERIAL BLOOD H2CO3 1.23 mmol/L (1.05-1.35); ARTERIAL BLOOD HCO3 19.4 mmol/L (20-24); ARTERIAL BLOOD O2 SATURATION 84.9 % (94-98); ARTERIAL BLOOD PCO2 40.7 mmHg (35-45); ARTERIAL BLOOD PO2 54.2 mmHg (80-100); ARTERIAL BLOOD TOTAL CO2 20.6 mmol/L (21-25)
[2019-05-10 00:23] LABS: ANION GAP 7 (5-19); BLOOD UREA NITROGEN 15 mg/dL (7-20); CALCIUM 7.6 mg/dL (8.4-10.2); CARBON DIOXIDE 20 mmol/L (22-30); CHLORIDE 116 mmol/L (98-107); GLUCOSE 117 mg/dL (75-110); POTASSIUM 3.5 mmol/L (3.6-5.0)
[2019-05-10 00:25] LABS: ARTERIAL BLOOD FIO2 32%
[2019-05-10] MEDS: NORMAL SALINE 1000 ML 1,000 ML IV PRN (04:18)
[2019-05-10] MEDS: AMOXICILLIN TRIHYDRATE 500 MG CAPSULE PO SCH (05:32)
[2019-05-10] MEDS: HEPARIN SOD (PORCINE) 5,000 UNIT/ML 1 ML VIAL SUBCUT SCH (05:40)
[2019-05-10] MEDS ORDERED: IPRATROPIUM/ALBUTEROL 0.5-2.5 MG/3 ML AMPUL NEB SCH (08:00)
[2019-05-10 08:05] LABS: ANION GAP 6 (5-19); BLOOD UREA NITROGEN 15 mg/dL (7-20); CALCIUM 7.6 mg/dL (8.4-10.2); CARBON DIOXIDE 21 mmol/L (22-30); CHLORIDE 117 mmol/L (98-107); GLUCOSE 113 mg/dL (75-110); POTASSIUM 3.2 mmol/L (3.6-5.0)
[2019-05-10] MEDS ORDERED: POTASSIUM CHLORIDE 10 MEQ CAPSULE.ER PO ONE (09:00)
[2019-05-10 09:09] VITALS: BP 151/72
[2019-05-10] MEDS: FAMOTIDINE INJ/PF 20 MG/2 ML SDV IV SCH (09:15)
[2019-05-10] MEDS: SENNOSIDES/DOCUSATE 8.6-50 MG 1 EACH TABLET PO SCH (09:15)
[2019-05-10] MEDS: DIGOXIN 0.125 MG TABLET PO SCH (09:15)
[2019-05-10] MEDS: RISPERIDONE 1 MG TABLET PO SCH (09:15)
[2019-05-10] MEDS: METHADONE HCL 10 MG TABLET PO SCH (09:16)
[2019-05-10] MEDS ORDERED: METOPROLOL TARTRATE 25 MG TABLET PO SCH (10:00)
--- NOTE | 2019-05-11 17:27 | PDOC DISCHARGE SUMMARY ---
General - Admit/Disc Date/PCP Admission Date/Primary Care Provider: 05/04/19 07:55 MINNIE CASTRO MD Discharge Date: 05/10/19 - Discharge Diagnosis (1) Septic shock Is this a current diagnosis for this admission?: Yes (2) Acute kidney injury Is this a current diagnosis for this admission?: Yes (3) Hyperkalemia Is this a current diagnosis for this admission?: Yes (4) Pneumonia Is this a current diagnosis for this admission?: Yes (5) Urinary tract infection Is this a current diagnosis for this admission?: Yes (6) Atrial fibrillation with RVR Is this a current diagnosis for this admission?: Yes - Additional Information Resuscitation Status: Do Not Resuscitate Discharge Diet: As Tolerated Discharge Activity: Activity As Tolerated Prescriptions: Amoxicillin Trihydrate [Amoxil 500 mg Capsule] 500 mg PO Q8 9 Days #27 capsule Apixaban [Eliquis 2.5 mg Tablet] 2.5 mg PO BID #60 tablet Metoprolol Tartrate [Lopressor 25 mg Tablet] 25 mg PO Q12 #60 Polyethylene Glycol 3350 [Miralax Powder 17 gm/Packet] 17 gm PO DAILYP PRN #1 powd.pack PRN Reason: Sennosides/Docusate 8.6-50 mg [Senna Plus Tablet] 1 each PO BID #30 tablet Home Medications: Digoxin 125 mcg PO DAILY 05/04/19 Methadone HCl [Dolophine HCl] 5 mg PO Q12 05/04/19 Risperidone 2 mg PO QHS 05/04/19 Temazepam [Restoril 15 mg Capsule] 15 mg PO QHS 05/04/19 Amoxicillin Trihydrate [Amoxil 500 mg Capsule] 500 mg PO Q8 9 Days #27 capsule 05/10/19 Apixaban [Eliquis 2.5 mg Tablet] 2.5 mg PO BID #60 tablet 05/10/19 Metoprolol Tartrate [Lopressor 25 mg Tablet] 25 mg PO Q12 #60 05/10/19 Polyethylene Glycol 3350 [Miralax Powder 17 gm/Packet] 17 gm PO DAILYP PRN #1 powd.pack 05/10/19 Sennosides/Docusate 8.6-50 mg [Senna Plus Tablet] 1 each PO BID #30 tablet 05/10/19 History of Present Illness History of Present Illness: Admitting hospitalist's H&P: SHANNON BEAN is a 88 year old female who was brought into the emergency room for weakness and decreased responsiveness since last night. Cording to the ER history the son on his mother last night and found her to be weak as responsive. Per the son the patient had a stroke 2 weeks ago but does not have any deficit from that event. Son works in the medical field When EMS arrived at the patient's house she was hypoxic with an O2 sat of 84% on room air tachycardic and hypotensive. In the emergency room he was found to be hypotensive with systolic in the 80s and tachycardic at 140. Temperature in the emergency room was 98.3. Upon arrival in the emergency room the patient was treated aggressively with bolus of fluids x2, 30 mg/kg, patient was placed on BiPAP Patient has responded well to IV fluids now appears to be stable to go to the ICU for septic shock secondary to either pneumonia vs urosepsis. Family has power of securities attorney has made her a DNR. Hospital Course Hospital Course: This is an 88 year old female who was brought in due to weakness and decreased responsiveness. In the ER, she was found to be hypoxic, tachycardic and hypotensive. She was admitted and treated for septic shock secondary to pneumonia versus urinary tract infection. Patient was initially started on levophed. Apparently, she went into atrial fibrillation with RVR and she was started on amiodarone drip per cardio recommendations. Her Levophed was also switched to Cristian-Synephrine. 05/06: Patient had episodes of tachycardia overnight and she received IV Lopressor early this morning to which she responded. She is currently on amiodarone and Cristian-Synephrine drips. Upon encounter, patient appears comfortable denies any chest pain or shortness of breath. 05/07: Heart rate has significantly improved down to the 60s after resuming her p.o. Lopressor. Her knee was switched to vasopressin last night and she is currently on low-dose vasopressin. She is much more responsive today. She appears more comfortable. 05/08: She denies acute complaints. She continues to require low dose of vasopressin. Appreciate ID recommendations. 05/09: She has been off vasopressin for more than 24 hours now. She had 2 large bowel movements yesterday and another large BM this morning. She denies acute complaints. She went into Afib with RVR overnight and was initially on cardizem drip. But was promptly weaned off with her HR improving to the 80s. Her PO lopressor was increased back to he her home dose (adjusted initially to half due to low normal blood pressures) and she tolerated the adjustment well. Rediscussed case in length with patient's son as he prefers her mom to be back home as soon as she can under hospice. Patient will be transitioned to home hospice. Physical Exam Vital Signs: Temp Pulse Resp BP Pulse Ox 98.8 F 110 H 19 151/72 H 90 L 05/10/19 09:07 05/10/19 09:07 05/10/19 09:07 05/10/19 09:07 05/10/19 09:07 Intake & Output 05/10/19 05/11/19 05/12/19 06:59 06:59 06:59 Intake Total 2050 Output Total 1065 300 Balance 985 -300 Weight 98 lb 8.746 oz General appearance: PRESENT: no acute distress, well-developed, well-nourished Head exam: PRESENT: atraumatic, normocephalic Eye exam: PRESENT: conjunctiva pink, EOMI, PERRLA. ABSENT: scleral icterus Ear exam: PRESENT: normal external ear exam Mouth exam: PRESENT: moist, tongue midline Neck exam: ABSENT: carotid bruit, JVD, lymphadenopathy, thyromegaly Respiratory exam: PRESENT: rhonchi. ABSENT: rales, wheezes Cardiovascular exam: PRESENT: irregular rhythm. ABSENT: systolic murmur Pulses: PRESENT: normal dorsalis pedis pul GI/Abdominal exam: PRESENT: normal bowel sounds, soft. ABSENT: distended, guarding, mass, organolmegaly, rebound, tenderness Rectal exam: PRESENT: deferred Neurological exam: PRESENT: alert, awake Results Laboratory Results: 05/09/19 06:52 05/10/19 07:35 05/06/19 03:57 Blood Blood Culture - Final NO GROWTH IN 5 DAYS 05/04/19 05/04/19 05/04/19 04:55 04:55 04:55 Creatine Kinase 36 Troponin I 0.018 NT-Pro-B Natriuret Pep 27073 H 05/05/19 11:40 Creatine Kinase Troponin I 0.052 NT-Pro-B Natriuret Pep Impressions: Chest X-Ray 05/04/19 05:02 IMPRESSION: 1. Volume loss in the left lung base similar when compared to the prior study likely representing a combination of pleural fluid, atelectasis and possibly pneumonia. 2. The right lung is clear. Modified Barium Swallow 05/07/19 00:00 IMPRESSION: ASPIRATION WITH THIN BARIUM. PLEASE SEE SPEECH PATHOLOGIST REPORT FOR OTHER FINDINGS AND RECOMMENDATIONS. Abdomen CT 05/08/19 00:00 IMPRESSION: Fecal impaction with massive amount of stool in the sigmoid and rectum Left-sided hydronephrosis and hydroureter. Distal ureter and pelvis are not included in the field of view of the axial images. Question urinary outflow obstruction on the left from mass effect from stool-filled colon. Distal left ureteral stone could not be excluded. Moderate left small right pleural effusion. Biliary ductal dilatation post cholecystectomy. Qualifiers - * PATIENT BEING DISCHARGED WITH ANY OF THE FOLLOWING DIAGNOSIS: No Acute Heart Failure - Is this a Heart Failure Patient?: No LVEF < 40%?: No- if no continue to question #3 3. Anticoagulant therapy for permanect/persistent/paraoxysmal Afib or Aflutter: N/A
== END 2019-05-10 11:59 | disposition hospice, home (50) | DRG 871 ==
LOC: ER 04:44 → EH 07:55 → ICU 09:48 → 5 05-09 19:30 → ICU 05-10 01:05
PROVIDERS: ADMIT Internal Medicine; ATTEND Internal Medicine
PROC: 5A09557 Assistance with Respiratory Ventilation, Greater than 96 Consecutive Hours, Continuous Positive Airway Pressure (ICD-10-PCS; principal; 2019-05-04)
DX: A41.89 Other specified sepsis (principal); R65.21 Severe sepsis with septic shock; J18.9 Pneumonia, unspecified organism; N39.0 Urinary tract infection, site not specified; J98.11 Atelectasis; N17.9 Acute kidney failure, unspecified; E87.5 Hyperkalemia; Z66 Do not resuscitate; I48.91 Unspecified atrial fibrillation; I11.0 Hypertensive heart disease with heart failure; I50.9 Heart failure, unspecified; D64.9 Anemia, unspecified; M19.90 Unspecified osteoarthritis, unspecified site; F31.9 Bipolar disorder, unspecified; F03.90 Unspecified dementia, unspecified severity, without behavioral disturbance, psychotic disturbance, mood disturbance, and anxiety; Z88.6 Allergy status to analgesic agent; Z86.73 Personal history of transient ischemic attack (TIA), and cerebral infarction without residual deficits; Z88.8 Allergy status to other drugs, medicaments and biological substances; Z79.899 Other long term (current) drug therapy; Z79.02 Long term (current) use of antithrombotics/antiplatelets
CPT/HCPCS: 36415; 36600; 71045; 74150; 74230; 80048; 80053; 80162; 81001; 82272; 82550; 82803; 83036; 83605; 83690; 83735; 83880; 84484; 85025; 85610; 87040; 87077; 87086; 87088; 87186; 93005; 93010; 94660; 96361; 96365; 96367; 96375; 99291; C1751; J0282; J0610; J0696; J1160; J1642; J1644; J1815; J2370; J2543; J3370; J3480; J3490; J7030; J7040; J7060; J7620; S0028

== ENCOUNTER 2019-05-11 12:10 | Inpatient (IN) | payer MEDICARE ==
[2019-05-11 13:51] LABS: INTERNATIONAL RATION (INR) 1.08
[2019-05-11 13:52] LABS: ALBUMIN 2.5 g/dL (3.5-5.0); ALKALINE PHOSPHATASE 84 U/L (38-126); ANION GAP 6 (5-19); ASPARTATE AMINO TRANSFERASE 29 U/L (14-36); BILIRUBIN,DIRECT 0.5 mg/dL (0.0-0.4); BILIRUBIN,TOTAL 0.6 mg/dL (0.2-1.3); BLOOD UREA NITROGEN 16 mg/dL (7-20); CALCIUM 8.5 mg/dL (8.4-10.2); CARBON DIOXIDE 20 mmol/L (22-30); CHLORIDE 121 mmol/L (98-107); GLUCOSE 97 mg/dL (75-110); POTASSIUM 4.3 mmol/L (3.6-5.0); TOTAL PROTEIN 5.7 g/dL (6.3-8.2)
--- NOTE | 2019-05-11 14:43 | RADIOLOGY REPORT (SQ) ---
EXAM DESCRIPTION: CHEST SINGLE VIEW COMPLETED DATE/TIME: 05/11/2019 2:14 pm REASON FOR STUDY: possible sepsis COMPARISON: 05/04/2019. FINDINGS: AP portable upright single-view chest. Compared to the recent prior, worsening aeration. Dense consolidation and volume loss in the left lung base with increasing pleural fluid. Right lung remains relatively clear. TECHNICAL DOCUMENTATION: JOB ID: [id number] Reading location - IP/workstation name: [email or web address]
[2019-05-11] MEDS ORDERED: PIPERACILLIN/TAZOBACTAM 4.5 GM VIAL IV ONE (15:00)
--- NOTE | 2019-05-11 15:02 | EKG REPORT ---
SEVERITY:- ABNORMAL ECG - SINUS TACHYCARDIA LEFT AXIS DEVIATION LOW VOLTAGE THROUGHOUT BORDERLINE R WAVE PROGRESSION, ANTERIOR LEADS consider OLD ANTERIOR RI ABNORMAL T, CONSIDER ISCHEMIA, LATERAL LEADS : Confirmed by: Bassam Bear MD 11-May-2019 15:01:58
[2019-05-11 15:18] LABS: VENOUS BLOOD HCO3 19.6 mmol/L (20-32); VENOUS BLOOD PCO2 43.9 mmHg (35-63); VENOUS BLOOD PH 7.27 (7.30-7.42)
[2019-05-11 15:29] LABS: HEMATOCRIT 24.9 % (36.0-47.0); MEAN CORPUSCULAR HEMOGLOBIN 28.4 pg (27.0-33.4); MEAN CORPUSCULAR HGB CONC 32.1 g/dL (32.0-36.0); MEAN CORPUSCULAR VOLUME 89 fl (80-97); RED BLOOD COUNT 2.82 10^6/uL (3.72-5.28); RED CELL DISTRIBUTION WIDTH 15.9 % (11.5-14.0); WHITE BLOOD COUNT 12.3 10^3/uL (4.0-10.5)
[2019-05-11 15:57] LABS: PLATELET COUNT 179 10^3/uL (150-450)
[2019-05-11 15:59] LABS: ABSOLUTE LYMPHOCYTES# (MANUAL) 0.2 10^3/uL (0.5-4.7); ABSOLUTE MONOCYTES # (MANUAL) 0.9 10^3/uL (0.1-1.4); ANISOCYTOSIS 1+; BASOPHILS % (MANUAL) 0 % (0-2); EOSINOPHILS % (MANUAL) 0 % (0-6); LYMPHOCYTES % (MANUAL) 2 % (13-45); MONOCYTES % (MANUAL) 7 % (3-13); OVALOCYTES 1+; POIKILOCYTOSIS 1+; POLYCHROMASIA SLIGHT; SEGMENTED NEUTROPHILS % (MAN) 91 % (42-78); TOTAL CELLS COUNTED 100; TOXIC GRANULATION 1+
[2019-05-11 16:00] LABS: PLATELET COMMENT ADEQUATE
[2019-05-11 17:16] LABS: APPEARANCE,URINE TURBID; BILIRUBIN,URINE NEGATIVE (NEGATIVE); COLOR,URINE AMBER; GLUCOSE, URINE NEGATIVE (NEGATIVE); KETONES,URINE 20 mg/dL (NEGATIVE); LEUKOCYTE ESTERASE,URINE LARGE (NEGATIVE); NITRITE,URINE NEGATIVE (NEGATIVE); PROTEIN,URINE 30 mg/dL (NEGATIVE); URINE SPECIFIC GRAVITY 1.012; UROBILINOGEN,URINE NEGATIVE mg/dL (<2.0)
--- NOTE | 2019-05-11 18:36 | ER Document Report ---
ED General - General Chief Complaint: Altered Mental Status Stated Complaint: ALTERED MENTAL STATUS Time Seen by Provider: 05/11/19 13:06 Primary Care Provider: MINNIE CASTRO MD [Primary Care Provider] - Follow up as needed Information source: Relative Cannot obtain history due to: Altered mental status Notes: 88-year-old female returns the emergency department due to concerns over returning sepsis. Patient was apparently admitted to [facility] and discharged yesterday. She been undergoing treatment for UTI and sepsis however her son felt she was doing significantly better so he pushed her discharged home and the patient was discharged after being off of pressors for 2 days. He notes that the patient had some improvement yesterday but then was very hot overnight and had increasing weakness, axillary temp was 99.5. She then had a decreased level of consciousness today and was unable to take any medications or food by mouth. Could not take her oral antibiotics today so he brought her back. He states that they are looking into the possibility of hospice however he is not ready to make her DNR yet at this point. States that he would never want CPR but depending on the situation he may want her to be intubated. He states that previously she has been intubated and had to spend months at a time on a ventilator so he is hesitant to intubate her. Patient can give no history whatsoever. TRAVEL OUTSIDE OF THE [place] IN LAST 30 DAYS: No - Related Data Allergies/Adverse Reactions: haloperidol [From Haldol] Allergy (Verified 06/12/12 19:02) haloperidol lactate [From Haldol] Allergy (Verified 06/12/12 19:02) Past Medical History - General Information source: Relative Cannot obtain history due to: Altered mental status - Social History Smoking Status: Never Smoker Chew tobacco use (# tins/day): No Frequency of alcohol use: None Drug Abuse: None Family History: Reviewed & Not Pertinent Patient has suicidal ideation: No Patient has homicidal ideation: No - Past Medical History Cardiac Medical History: Reports: Hx Atrial Fibrillation, Hx Congestive Heart Failure, Hx Hypertension Denies: Hx Coronary Artery Disease, Hx Heart Attack, Hx Hypercholesterolemia, Hx Peripheral Vascular Disease, Hx Heart Murmur Pulmonary Medical History: Reports: Hx Respiratory Failure Denies: Hx Tuberculosis Renal/ Medical History: Denies: Hx End Stage Renal Disease, Hx Kidney Stones, Hx Peritoneal Dialysis Musculoskeletal Medical History: Reports Hx Arthritis Psychiatric Medical History: Reports: Hx Bipolar Disorder, Hx Dementia Past Surgical History: Reports: Hx Bowel Surgery - bowel resection, Hx Kidney (Renal Surgery) - 1 kidney removed. Denies: Hx Pacemaker - Immunizations Hx Diphtheria, Pertussis, Tetanus Vaccination: Yes Review of Systems - Review of Systems -: Yes ROS unobtainable due to patient's medical condition Physical Exam - Vital signs Vitals: Resp Pulse Ox 18 92 05/11/19 12:14 05/11/19 12:14 - Notes Notes: GENERAL: Laying in bed, talking but not making a lot of sense, very hard of hearing, is not answering questions unless you shout directly in her right ear. No acute distress. Cachectic. HEAD: Normocephalic, atraumatic EYES: Pupils equal, round and reactive to light, extraocular movements intact. Conjunctiva are injected. ENT: Oral mucosa dry, lips are chapped, tongue midline. NECK: Full range of motion, supple, trachea midline. LUNGS: Clear to auscultation bilaterally, no wheezes, rales or rhonchi, no respiratory distress. HEART: Regular rate and rhythm, no murmurs, gallops, rubs. ABDOMEN: Soft, nontender, nondistended, bowel sounds present in all 4 quadrants. EXTREMITIES: Moves all 4 extremities spontaneously, no edema, radial and dorsalis pedis pulses 2/4 bilaterally. No cyanosis. NEUROLOGICAL: Awake, disoriented, able to identify that she is in [place] and give me her name but does not know the year or what type of the building she is in. Very hard of hearing. Does have some spontaneous movement of all 4 extremities but will not follow commands to move them. There is no slurring of her speech however she does not make sense as to the time that she is talking. SKIN: Warm, Dry, poor turgor, multiple ecchymoses and skin tears, stage II decubitus to the sacrum, stool leaking from her rectum. Course - Re-evaluation Re-evalutation: 05/11/19 20:52 CBC shows leukocytosis at 12.3, this is increased compared to prior, hemoglobin is low at 8, platelets normal, coags normal, venous blood gas shows acidosis with pH of 7.27, CMP shows low CO2 at 28, elevated sodium 147.3, CO2 low at 20, troponin indeterminate 0.060, low protein and albumin also consistent with her cachexia and not eating well. Urinalysis shows 20 ketones, moderate blood, large leukocyte esterase. This was treated with Rocephin. Urine and blood cultures were sent. Chest x-ray shows worsening right lower lobe pneumonia. Patient is also mildly hypoxic. Patient was discussed with Dr. Ellen modi and he accepted her for admission to the ICU. Patient is rechecked and is quite ill-appearing, sleeping and difficult to arouse however when I shout in her ear and shake her she will wake up and shout and then go back to sleep. - Vital Signs Vital signs: Temp Pulse Resp BP Pulse Ox 99.1 F 103 H 15 123/54 L 92 05/11/19 12:40 05/11/19 12:40 05/11/19 18:01 05/11/19 18:01 05/11/19 18:01 - Laboratory Result Diagrams: 05/11/19 15:00 05/11/19 12:19 Laboratory results interpreted by me: 05/11/19 05/11/19 05/11/19 12:19 15:00 15:00 WBC 12.3 H RBC 2.82 L Hgb 8.0 L Hct 24.9 L RDW 15.9 H Seg Neuts % (Manual) 91 H Lymphocytes % (Manual) 2 L Abs Neuts (Manual) 11.2 H Abs Lymphs (Manual) 0.2 L VBG pH 7.27 L VBG HCO3 19.6 L Sodium 147.3 H Chloride 121 H Carbon Dioxide 20 L Direct Bilirubin 0.5 H Total Protein 5.7 L Albumin 2.5 L Urine Protein Urine Ketones Urine Blood Ur Leukocyte Esterase 05/11/19 16:50 WBC RBC Hgb Hct RDW Seg Neuts % (Manual) Lymphocytes % (Manual) Abs Neuts (Manual) Abs Lymphs (Manual) VBG pH VBG HCO3 Sodium Chloride Carbon Dioxide Direct Bilirubin Total Protein Albumin Urine Protein 30 H Urine Ketones 20 H Urine Blood MODERATE H Ur Leukocyte Esterase LARGE H - EKG Interpretation by Me Additional EKG results interpreted by me: 05/11/19 20:52 EKG shows sinus tachycardia at a rate of 104, first-degree AV block with a PA interval of 212, left axis deviation, interventricular conduction delay per my interpretation. Discharge - Discharge Clinical Impression: Urinary tract infection Qualifiers: Urinary tract infection type: acute cystitis Hematuria presence: without hematuria Qualified Code(s): N30.00 - Acute cystitis without hematuria Pneumonia Qualifiers: Pneumonia type: aspiration pneumonia Aspiration pneumonia type: unspecified Laterality: right Lung location: lower lobe of lung Qualified Code(s): J69.0 - Pneumonitis due to inhalation of food and vomit Leukocytosis Qualifiers: Leukocytosis type: unspecified Qualified Code(s): D72.829 - Elevated white blood cell count, unspecified Anemia Qualifiers: Anemia type: unspecified type Qualified Code(s): D64.9 - Anemia, unspecified Condition: Serious Disposition: ADMITTED INPATIENT Admitting Provider: Gely (Hospitalist) Unit Admitted: ICU Referrals: MINNIE CASTRO MD [Primary Care Provider] - Follow up as needed
[2019-05-11] MEDS ORDERED: ONDANSETRON HCL INJ/PF 4 MG/2 ML SDV IV PRN (19:02)
[2019-05-11] MEDS ORDERED: NORMAL SALINE 1000 ML 1,000 ML IV PRN (19:02)
--- NOTE | 2019-05-11 19:02 | PDOC H&P ---
History of Present Illness Admission Date/PCP: MINNIE CASTRO MD History of Present Illness: SHANNON BEAN is a 88 year old female patient was past medical history of bipolar disorder, dementia, hypertension, congestive heart failure and atrial fibrillation brought from home by her son with chief complaint of altered mental status. Since patient is mentally altered and hard of hearing according she is not able to give meaningful history. During my encounter no family members is in the room. Got brief history verbally from the ER attending. Per ER attending patient brought to ER with chief complaint of altered mental status. Of note patient discharged yesterday from ICU after she was treated for septic shock and A. fib with RVR. Her blood work shows mild leukocytosis of 12.3, hemoglobin of 8 and her urinalysis positive for pyuria and leukocyte esterase. Her chest x-ray reported as compared to the recent prior, worsening aeration. There is consolidation and volume loss in the left lung base with increased pleural fluid. Further detailed history and review of systems unobtainable. Past Medical History Cardiac Medical History: Reports: Atrial Fibrillation, Congestive Heart Failure, Hypertension Denies: Coronary Artery Disease, Myocardial Infarction, Hyperlipidema, Peripheral Vascular Disease, Heart Murmur Pulmonary Medical History: Reports: Respiratory Failure Denies: Tuberculosis Renal/ Medical History: Denies: End Stage Renal Disease Musculoskeltal Medical History: Reports: Arthritis Psychiatric Medical History: Reports: Bipolar Disorder, Dementia Past Surgical History Past Surgical History: Denies: Pacemaker Social History Smoking Status: Unknown if Ever Smoked Hx Recreational Drug Use: No Hx Prescription Drug Abuse: No - Advance Directive Resuscitation Status: Full Code Family History Family History: Reviewed & Not Pertinent, CAD, COPD, CVA Parental Family History Reviewed: Yes Children Family History Reviewed: Yes Sibling(s) Family History Reviewed.: Yes Medication/Allergy Home Medications: Digoxin 125 mcg PO DAILY 05/04/19 Methadone HCl [Dolophine HCl] 5 mg PO Q12 05/04/19 Risperidone 2 mg PO QHS 05/04/19 Temazepam [Restoril 15 mg Capsule] 15 mg PO QHS 05/04/19 Amoxicillin Trihydrate [Amoxil 500 mg Capsule] 500 mg PO Q8 9 Days #27 capsule 05/10/19 Apixaban [Eliquis 2.5 mg Tablet] 2.5 mg PO BID #60 tablet 05/10/19 Metoprolol Tartrate [Lopressor 25 mg Tablet] 25 mg PO Q12 #60 05/10/19 Polyethylene Glycol 3350 [Miralax Powder 17 gm/Packet] 17 gm PO DAILYP PRN #1 powd.pack 05/10/19 Sennosides/Docusate 8.6-50 mg [Senna Plus Tablet] 1 each PO BID #30 tablet 05/10/19 Allergies/Adverse Reactions: haloperidol [From Haldol] Allergy (Verified 06/12/12 19:02) haloperidol lactate [From Haldol] Allergy (Verified 06/12/12 19:02) Review of Systems ROS unobtainable: Due to mental status Physical Exam Vital Signs: Temp Pulse Resp BP Pulse Ox 99.1 F 103 H 18 138/43 H 91 L 05/11/19 12:40 05/11/19 12:40 05/11/19 16:01 05/11/19 16:01 05/11/19 16:01 Results Laboratory Results: 05/11/19 15:00 05/11/19 12:19 05/11/19 05/11/19 05/11/19 12:19 12:19 12:19 WBC Cancelled RBC Cancelled Hgb Cancelled Hct Cancelled MCV Cancelled MCH Cancelled MCHC Cancelled RDW Cancelled Plt Count Cancelled Seg Neutrophils % Cancelled VBG pH VBG pCO2 VBG HCO3 VBG Base Excess Sodium 147.3 H Potassium 4.3 Chloride 121 H Carbon Dioxide 20 L Anion Gap 6 BUN 16 Creatinine 0.65 Est GFR ( Amer) > 60 Glucose 97 Lactic Acid 0.8 Calcium 8.5 Total Bilirubin 0.6 AST 29 Alkaline Phosphatase 84 Total Protein 5.7 L Albumin 2.5 L Urine Color Urine Appearance Urine pH Ur Specific [place] Urine Protein Urine Glucose (UA) Urine Ketones Urine Blood Urine Nitrite Ur Leukocyte Esterase Urine WBC (Auto) Urine RBC (Auto) 05/11/19 05/11/19 05/11/19 15:00 15:00 16:50 WBC 12.3 H RBC 2.82 L Hgb 8.0 L Hct 24.9 L MCV 89 MCH 28.4 MCHC 32.1 RDW 15.9 H Plt Count 179 Seg Neutrophils % Not Reportable VBG pH 7.27 L VBG pCO2 43.9 VBG HCO3 19.6 L VBG Base Excess -7.0 Sodium Potassium Chloride Carbon Dioxide Anion Gap BUN Creatinine Est GFR ( Amer) Glucose Lactic Acid Calcium Total Bilirubin AST Alkaline Phosphatase Total Protein Albumin Urine Color JHON Urine Appearance TURBID Urine pH 5.0 Ur Specific [place] 1.012 Urine Protein 30 H Urine Glucose (UA) NEGATIVE Urine Ketones 20 H Urine Blood MODERATE H Urine Nitrite NEGATIVE Ur Leukocyte Esterase LARGE H Urine WBC (Auto) >182 Urine RBC (Auto) 74 05/11/19 12:19 Troponin I 0.060 Assessment and Plan - Diagnosis (1) Possible healthcare associated pneumonia Is this a current diagnosis for this admission?: Yes Plan: I will put the patient on vancomycin and cefepime. (2) Complicated UTI (urinary tract infection) Is this a current diagnosis for this admission?: Yes Plan: The cefepime will take care of it. (3) A-fib Qualifiers: Atrial fibrillation type: chronic Qualified Code(s): I48.2 - Chronic atrial fibrillation Is this a current diagnosis for this admission?: Yes Plan: Rate controlled (4) Bipolar disorder Is this a current diagnosis for this admission?: Yes Plan: Continue her home medication. (5) Hypertension Qualifiers: Hypertension type: essential hypertension Qualified Code(s): I10 - Essential (primary) hypertension Is this a current diagnosis for this admission?: Yes Plan: Continue home meds
[2019-05-11] MEDS ORDERED: VANCOMYCIN HCL 0 MG in DEXTROSE 5%-WATER 250 ML IV NR (19:15)
[2019-05-11] MEDS ORDERED: ENOXAPARIN SODIUM INJ 30 MG/0.3 ML DISP.SYRIN SUBCUT ONE (19:30)
[2019-05-11] MEDS ORDERED: CEFEPIME 2 GM/D5W RTU 2 GM/50 ML RTUPB IV SCH (22:00)
[2019-05-11] MEDS ORDERED: VANCOMYCIN HCL INJ 1000 MG VIAL IV PRN (22:22)
[2019-05-11] MEDS ORDERED: VANCOMYCIN HCL 1,000 MG in DEXTROSE 5%-WATER 250 ML IV ONE (22:30)
[2019-05-11] MEDS ORDERED: VANCOMYCIN HCL INJ 1000 MG VIAL ONE (23:05)
[2019-05-11] MEDS ORDERED: CEFEPIME 2 GM/D5W RTU 2 GM/50 ML RTUPB IV ONE (23:05)
[2019-05-12] MEDS ORDERED: FENTANYL CITRATE INJ/PF 100 MCG/2 ML AMPUL ONE (00:31)
[2019-05-12 04:27] LABS: ANION GAP 7 (5-19); BLOOD UREA NITROGEN 17 mg/dL (7-20); CARBON DIOXIDE 20 mmol/L (22-30); CHLORIDE 121 mmol/L (98-107); GLUCOSE 133 mg/dL (75-110); POTASSIUM 3.5 mmol/L (3.6-5.0)
[2019-05-12 05:23] LABS: ABSOLUTE LYMPHOCYTES (AUTO) 0.3 10^3/uL (0.5-4.7); ABSOLUTE MONOCYTES (AUTO) 0.3 10^3/uL (0.1-1.4); ABSOLUTE NEUT (AUTO) 6.3 10^3/uL (1.7-8.2); BASOPHILS % (AUTO) 0.2 % (0-2); EOSINOPHILS % (AUTO) 0.1 % (0-6); HEMATOCRIT 21.9 % (36.0-47.0); LYMPHOCYTES % (AUTO) 4.3 % (13-45); MEAN CORPUSCULAR HEMOGLOBIN 28.9 pg (27.0-33.4); MEAN CORPUSCULAR HGB CONC 32.9 g/dL (32.0-36.0); MEAN CORPUSCULAR VOLUME 88 fl (80-97); MONOCYTES % (AUTO) 4.9 % (3-13); RED CELL DISTRIBUTION WIDTH 15.9 % (11.5-14.0); SEGMENTED NEUTROPHILS % (AUTO) 90.5 % (42-78); TOTAL CELLS COUNTED % (AUTO) 100 %; WHITE BLOOD COUNT 6.9 10^3/uL (4.0-10.5)
[2019-05-12] MEDS: FENTANYL CITRATE INJ/PF 100 MCG/2 ML AMPUL IV PRN ×4 (05:56→22:33)
[2019-05-12 05:59] LABS: HEMOGLOBIN 7.2 g/dL (12.0-15.5)
[2019-05-12] MEDS: PANTOPRAZOLE SODIUM 40 MG VIAL IV SCH (09:49)
[2019-05-12] MEDS: CEFEPIME HCL 2 GM in DEXTROSE 5%-WATER 50 ML IV SCH ×2 (09:50→21:44)
[2019-05-12] MEDS: ENOXAPARIN SODIUM INJ 30 MG/0.3 ML DISP.SYRIN SUBCUT SCH (09:50)
--- NOTE | 2019-05-12 13:50 | PDOC PROGRESS REPORT ---
Subjective Progress Note for:: 05/12/19 Subjective:: The patient is non-verbal today. She appears quite sad. The nurse reports that she has not been speaking at all today. Upper extremity edema per nursing. Reason For Visit: [facility] Physical Exam Vital Signs: Temp Pulse Resp BP Pulse Ox 100.6 F H 110 H 23 H 154/69 H 98 05/12/19 12:00 05/12/19 12:00 05/12/19 12:00 05/12/19 12:00 05/12/19 12:00 Intake & Output 05/11/19 05/12/19 05/13/19 06:59 06:59 06:59 Intake Total 300 50 Output Total 355 155 Balance -55 -105 Weight 42.9 kg General appearance: PRESENT: no acute distress, thin - and frail, well- developed. ABSENT: cooperative Head exam: PRESENT: atraumatic, normocephalic Eye exam: PRESENT: conjunctiva pale. ABSENT: scleral icterus Ear exam: PRESENT: normal external ear exam. ABSENT: bleeding, drainage Respiratory exam: PRESENT: decreased breath sounds - Especially on the left., unlabored. ABSENT: accessory muscle use, rales, rhonchi, wheezes Cardiovascular exam: PRESENT: +S1, +S2, tachycardia GI/Abdominal exam: PRESENT: soft. ABSENT: distended, guarding, tenderness Rectal exam: PRESENT: deferred Extremities exam: PRESENT: other - upper extremity with edema. Arm is folded across the chest so the swelling is mostly in the upper arm. Musculoskeletal exam: ABSENT: normal inspection Neurological exam: PRESENT: altered Psychiatric exam: PRESENT: flat affect Focused psych exam: PRESENT: catatonic Skin exam: PRESENT: dry, pallor, warm Results Laboratory Results: 05/12/19 05:00 05/12/19 03:36 05/11/19 05/11/19 05/11/19 12:19 12:19 12:19 WBC Cancelled RBC Cancelled Hgb Cancelled Hct Cancelled MCV Cancelled MCH Cancelled MCHC Cancelled RDW Cancelled Plt Count Cancelled Seg Neutrophils % Cancelled VBG pH VBG pCO2 VBG HCO3 VBG Base Excess Sodium 147.3 H Potassium 4.3 Chloride 121 H Carbon Dioxide 20 L Anion Gap 6 BUN 16 Creatinine 0.65 Est GFR ( Amer) > 60 Glucose 97 Lactic Acid 0.8 Calcium 8.5 Total Bilirubin 0.6 AST 29 Alkaline Phosphatase 84 Total Protein 5.7 L Albumin 2.5 L Urine Color Urine Appearance Urine pH Ur Specific [place] Urine Protein Urine Glucose (UA) Urine Ketones Urine Blood Urine Nitrite Ur Leukocyte Esterase Urine WBC (Auto) Urine RBC (Auto) 05/11/19 05/11/19 05/11/19 15:00 15:00 16:50 WBC 12.3 H RBC 2.82 L Hgb 8.0 L Hct 24.9 L MCV 89 MCH 28.4 MCHC 32.1 RDW 15.9 H Plt Count 179 Seg Neutrophils % Not Reportable VBG pH 7.27 L VBG pCO2 43.9 VBG HCO3 19.6 L VBG Base Excess -7.0 Sodium Potassium Chloride Carbon Dioxide Anion Gap BUN Creatinine Est GFR ( Amer) Glucose Lactic Acid Calcium Total Bilirubin AST Alkaline Phosphatase Total Protein Albumin Urine Color JHON Urine Appearance TURBID Urine pH 5.0 Ur Specific [place] 1.012 Urine Protein 30 H Urine Glucose (UA) NEGATIVE Urine Ketones 20 H Urine Blood MODERATE H Urine Nitrite NEGATIVE Ur Leukocyte Esterase LARGE H Urine WBC (Auto) >182 Urine RBC (Auto) 74 05/12/19 05/12/19 05/12/19 03:36 03:36 05:00 WBC Cancelled 6.9 RBC Cancelled 2.50 L Hgb Cancelled 7.2 L Hct Cancelled 21.9 L MCV Cancelled 88 MCH Cancelled 28.9 MCHC Cancelled 32.9 RDW Cancelled 15.9 H Plt Count Cancelled Not Reportable Seg Neutrophils % Cancelled 90.5 H VBG pH VBG pCO2 VBG HCO3 VBG Base Excess Sodium 148.2 H Potassium 3.5 L Chloride 121 H Carbon Dioxide 20 L Anion Gap 7 BUN 17 Creatinine 0.71 Est GFR ( Amer) > 60 Glucose 133 H Lactic Acid Calcium 8.0 L Total Bilirubin AST Alkaline Phosphatase Total Protein Albumin Urine Color Urine Appearance Urine pH Ur Specific [place] Urine Protein Urine Glucose (UA) Urine Ketones Urine Blood Urine Nitrite Ur Leukocyte Esterase Urine WBC (Auto) Urine RBC (Auto) 05/11/19 12:19 Troponin I 0.060 Assessment and Plan - Diagnosis (1) Possible healthcare associated pneumonia Is this a current diagnosis for this admission?: Yes Plan: The patient was discharged and readmitted within 24 hours. The blood and urine cultures were positive for a very sensitive Proteus mirabilis. It is possible that she picked up a gram-positive organism (staph or strep) and so for the time being we will continue the cefepime and vancomycin. There is dense consolidation and pleural effusion in the left lung. We will also monitor blood culture results. (2) Complicated UTI (urinary tract infection) Is this a current diagnosis for this admission?: Yes Plan: Urine culture is pending. The patient recently had Proteus mirabilis infection. It was quite sensitive. Clearly the cefepime will cover if the bacteria is present again. I will also cover for other bacteria that may be in the urine. Await urine culture results to narrow spectrum of antibiotics. (3) A-fib Qualifiers: Atrial fibrillation type: chronic Qualified Code(s): I48.2 - Chronic atrial fibrillation Is this a current diagnosis for this admission?: Yes Plan: Her rate is slightly increased. I have resumed her digoxin and metoprolol with parameters to hold for bradycardia. On telemetry her rate is about 100. This is without her prior medications. Her rate should slow considerably when her old medications are reinstituted. She was on apixaban. She is currently on prophylactic Lovenox. She does have ODESSA hose in place as well. (4) Bipolar disorder Is this a current diagnosis for this admission?: Yes Plan: She is very quiet. She is nonverbal during this encounter. She is quite sedate. I will add back a lower dose of Risperdal than she was on an increase as appropriate. (5) Hypertension Qualifiers: Hypertension type: essential hypertension Qualified Code(s): I10 - Essential (primary) hypertension Is this a current diagnosis for this admission?: Yes Plan: Her blood pressures were low yesterday. They are higher today and so I have resumed the metoprolol. We will monitor pressure and adjust medications accordingly. I would like to see her systolic blood pressure less than 140 and her diastolic pressure less than 95. (6) Hypernatremia Is this a current diagnosis for this admission?: Yes Plan: Her serum sodium is elevated. It is slightly higher than yesterday. And when to change her IV fluid to D5 half-normal saline at 80 mL an hour and recheck her labs tomorrow. (7) Hypokalemia Is this a current diagnosis for this admission?: Yes Plan: Serum potassium is slightly low. I will give 20 mEq of potassium chloride by IV and follow potassium levels. Replete potassium based on laboratory results. - Time Time Spent with patient: 15-24 minutes Medications reviewed and adjusted accordingly: Yes Anticipated discharge: Hospice
[2019-05-12] MEDS: DEXTROSE 5%-1/2 NORMAL SALINE 1,000 ML IV PRN (14:05)
[2019-05-12] MEDS ORDERED: POTASSI CL 20 MEQ/50 ML RIDER 20 MEQ/50 ML RTUPB IV ONE (14:17)
[2019-05-12] MEDS: VANCOMYCIN HCL 500 MG in DEXTROSE 5%-WATER 100 ML IV SCH (17:22)
[2019-05-12] MEDS: METOPROLOL TARTRATE 25 MG TABLET PO SCH (21:44)
[2019-05-13] MEDS: FENTANYL CITRATE INJ/PF 100 MCG/2 ML AMPUL IV PRN ×5 (02:32→16:46)
[2019-05-13 04:38] LABS: BLOOD UREA NITROGEN 13 mg/dL (7-20); CHLORIDE 122 mmol/L (98-107); GLUCOSE 178 mg/dL (75-110); POTASSIUM 3.4 mmol/L (3.6-5.0)
[2019-05-13 04:44] LABS: CARBON DIOXIDE 26 mmol/L (22-30)
[2019-05-13 04:50] LABS: ANION GAP 1 (5-19)
[2019-05-13] MEDS: DEXTROSE 5%-1/2 NORMAL SALINE 1,000 ML IV PRN ×3 (05:27→17:08)
[2019-05-13] MEDS: PANTOPRAZOLE SODIUM 40 MG VIAL IV SCH (09:58)
[2019-05-13] MEDS ORDERED: RISPERIDONE 1 MG TABLET PO SCH (10:00)
[2019-05-13] MEDS: CEFEPIME HCL 2 GM in DEXTROSE 5%-WATER 50 ML IV SCH ×2 (10:04→21:38)
[2019-05-13] MEDS: DIGOXIN 0.125 MG TABLET PO SCH (10:05)
[2019-05-13] MEDS: ENOXAPARIN SODIUM INJ 30 MG/0.3 ML DISP.SYRIN SUBCUT SCH (10:05)
[2019-05-13] MEDS: METOPROLOL TARTRATE 25 MG TABLET PO SCH ×2 (10:05→21:30)
[2019-05-13] MEDS ORDERED: FUROSEMIDE INJ/PF 20 MG/2 ML SDV IV ONE (10:06)
[2019-05-13] MEDS ORDERED: ONDANSETRON HCL INJ/PF 4 MG/2 ML SDV IV PRN (10:30)
--- NOTE | 2019-05-13 10:40 | PDOC PROGRESS REPORT ---
Subjective Progress Note for:: 05/13/19 Subjective:: Patient is nonverbal this morning. Her eyes are open but she does not track. She has a blank stare. She will occasionally spontaneously open her mouth but does not attempt to speak. I did ask several questions that would allow her a yes or no answer by nodding her head. She did not respond to those either. Reason For Visit: [facility] Physical Exam Vital Signs: Temp Pulse Resp BP Pulse Ox 97.5 F 91 16 124/59 L 100 05/13/19 07:54 05/13/19 07:54 05/13/19 07:54 05/13/19 07:54 05/13/19 07:54 Intake & Output 05/12/19 05/13/19 05/14/19 06:59 06:59 06:59 Intake Total 300 2250 Output Total 355 605 75 Balance -55 1645 -75 Weight 42.9 kg 45.3 kg General appearance: PRESENT: no acute distress, thin - Thin and very frail appearing 88-year-old female resting in bed, well-developed Head exam: PRESENT: atraumatic, normocephalic Eye exam: PRESENT: conjunctiva pale. ABSENT: scleral icterus Ear exam: PRESENT: normal external ear exam. ABSENT: bleeding, drainage Mouth exam: PRESENT: dry mucosa - Was able to examine when the patient spontaneously open her mouth., tongue midline Neck exam: ABSENT: JVD, lymphadenopathy, tracheal deviation Respiratory exam: PRESENT: clear to auscultation hang - Anteriorly, decreased breath sounds - In general with decreased inspiratory phase., symmetrical. ABSENT: rhonchi, tachypnea, wheezes Cardiovascular exam: PRESENT: RRR, +S1, +S2 GI/Abdominal exam: PRESENT: diminished bowel sounds, soft. ABSENT: distended, tenderness Rectal exam: PRESENT: deferred Gentrourinary exam: PRESENT: indwelling catheter Musculoskeletal exam: PRESENT: other - Decreased muscle mass Neurological exam: PRESENT: alert - Appears alert. Eyes are wide open. Unfortunately she does not respond to verbal stimulus and does not follow commands. The only spontaneous movement was opening her mouth intermittently., awake. ABSENT: oriented to person - Unable to assess Psychiatric exam: PRESENT: flat affect. ABSENT: agitated, anxious Focused psych exam: PRESENT: catatonic. ABSENT: restlessness Skin exam: PRESENT: dry, pallor, warm, other - Very thin skin. Multiple bruises from phlebotomy.. ABSENT: rash Results Laboratory Results: 05/13/19 03:59 05/13/19 03:59 05/13/19 05/13/19 03:59 03:59 WBC Cancelled RBC Cancelled Hgb Cancelled Hct Cancelled MCV Cancelled MCH Cancelled MCHC Cancelled RDW Cancelled Plt Count Cancelled Seg Neutrophils % Cancelled Sodium 149.2 H Potassium 3.4 L Chloride 122 H Carbon Dioxide 26 Anion Gap 1 L BUN 13 Creatinine 0.65 Est GFR ( Amer) > 60 Glucose 178 H Calcium 8.0 L Magnesium 2.2 05/11/19 16:50 Catheterized Urine Urine Culture - Final C.albicans/C.dubliniensis 05/11/19 12:19 Troponin I 0.060 Assessment and Plan - Diagnosis (1) Possible healthcare associated pneumonia Is this a current diagnosis for this admission?: Yes Plan: 05/12/2019-the patient was discharged and readmitted within 24 hours. The blood and urine cultures were positive for a very sensitive Proteus mirabilis. It is possible that she picked up a gram-positive organism (staph or strep) and so for the time being we will continue the cefepime and vancomycin. There is dense consolidation and pleural effusion in the left lung. We will also monitor blood culture results. 05/13/2019-yesterday's white blood cell count was normal. Today's is pending. Sputum culture was unable to be obtained. The patient is on broad-spectrum antibiotic therapy with cefepime and vancomycin. I will repeat a chest x-ray to monitor the infiltrates and pleural effusion. With her hypernatremia she is requiring increased fluid. My concern is that more fluid will end up on her lungs. We will continue the antibiotic therapy at this time. (2) Complicated UTI (urinary tract infection) Is this a current diagnosis for this admission?: Yes Plan: 05/12/2019-urine culture is pending. The patient recently had Proteus mirabilis infection. It was quite sensitive. Clearly the cefepime will cover if the bacteria is present again. I will also cover for other bacteria that may be in the urine. Await urine culture results to narrow spectrum of antibiotics. 05/13/2019-urine culture results are back. It is a pure culture of Lydia greater than 100,000 colony-forming units per milliliter. Considering she was just on antibiotic therapy recently a true yeast infection is not unreasonable. I am going to add fluconazole and see if the patient responds. Because of her immobility we still need a Weathers catheter. In addition it is imperative to monitor intake and output. (3) A-fib Qualifiers: Atrial fibrillation type: chronic Qualified Code(s): I48.2 - Chronic atrial fibrillation Is this a current diagnosis for this admission?: Yes Plan: 05/12/2019-her rate is slightly increased. I have resumed her digoxin and metoprolol with parameters to hold for bradycardia. On telemetry her rate is about 100. This is without her prior medications. Her rate should slow considerably when her old medications are reinstituted. She was on apixaban. She is currently on prophylactic Lovenox. She does have ODESSA hose in place as well. 05/13/2019-by auscultation she appears to be in a regular rhythm. Heart rate is well controlled. Blood pressure is reasonable. I will need to increase her fluids due to her hypernatremia. I will continue to monitor vital signs. At this point we will continue ODESSA hose and prophylactic Lovenox. (4) Bipolar disorder Is this a current diagnosis for this admission?: Yes Plan: 05/12/2019-she is very quiet. She is nonverbal during this encounter. She is quite sedate. I will add back a lower dose of Risperdal than she was on an increase as appropriate. 05/13/2019-the patient again is nonverbal. 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 She has extremely limited spontaneous head movement. She does occasionally open her mouth spontaneously. She did not answer any questions either verbally or with nodding her head. I did add back a small dose of Risperdal all, lower than her original dose. Because she is showing no signs of shanthi I will discontinue the dose at this time and continue to monitor the patient. Unfortunately her risk of aspiration is quite high and she is not showing any interest or attempt to take oral medicines. If her level of function improves we can try small bits of pudding or applesauce. (5) Hypertension Qualifiers: Hypertension type: essential hypertension Qualified Code(s): I10 - Essential (primary) hypertension Is this a current diagnosis for this admission?: Yes Plan: 05/12/2019-her blood pressures were low yesterday. They are higher today and so I have resumed the metoprolol. We will monitor pressure and adjust medications accordingly. I would like to see her systolic blood pressure less than 140 and her diastolic pressure less than 95. 05/13/2019-the patient continues on metoprolol and digoxin primarily for atrial fibrillation. Her blood pressure is tolerating these medications. Because of pleural effusions and the need for increased IV fluid I will give her a single dose of furosemide 10 mg IV and monitor urine output. We will continue to mo nitor intake and output and move towards a more neutral fluid balance however this will be difficult considering her hypernatremia. (6) Hypernatremia Is this a current diagnosis for this admission?: Yes Plan: 05/12/2019-her serum sodium is elevated. It is slightly higher than yesterday. And when to change her IV fluid to D5 half-normal saline at 80 mL an hour and recheck her labs tomorrow. 05/13/2019-despite changing to D5 half-normal saline her serum sodium is higher. I will increase the rate from 80 to 125 mL/h. We will need to monitor intake and output. As noted above I will give a dose of 10 mg IV furosemide. We will certainly need to monitor potassium with this. I will check electrolytes tomorrow to see if the IV fluid is helping her sodium level. (7) Hypokalemia Is this a current diagnosis for this admission?: Yes Plan: 05/12/2019-serum potassium is slightly low. I will give 20 mEq of potassium chloride by IV and follow potassium levels. Replete potassium based on laboratory results. 05/13/2019-despite the IV 20 mEq dose yesterday the patient's serum potassium is only 3.4. I will give another dose today and give daily potassium. She is going to get 10 mg of Lasix to try and help the pleural effusion this may drop her potassium even lower. As she is not taking anything by mouth at this time we will manage her potassium with intravenous riders. With her extremely poor to nonexistent oral intake she is not getting any dietary potassium either. We will continue to monitor her potassium level. (8) Anemia Qualifiers: Anemia type: unspecified type Qualified Code(s): D64.9 - Anemia, unspecified Is this a current diagnosis for this admission?: Yes Plan: 05/13/2019-her hemoglobin was only 7.2 yesterday. A CBC for today is pending. There is no obvious blood loss and so it is more likely a production issue. If the hemoglobin is lower I will discuss with the patient's son whether or not to transfuse. She was discharged on home hospice and with her overlying condition and poor prognosis it is more likely not to transfuse her. (9) Leukocytosis Qualifiers: Leukocytosis type: unspecified Qualified Code(s): D72.829 - Elevated white blood cell count, unspecified Is this a current diagnosis for this admission?: Yes Plan: 05/13/2019-the patient did have an elevated white blood cell count on admission. With initiation of antibiotics and has resolved and is back to normal. The pneumonia or candiduria could have contributed. It is more likely both. - Time Time Spent with patient: 25-34 minutes Medications reviewed and adjusted accordingly: Yes Anticipated discharge: Hospice
[2019-05-13] MEDS: POTASSI CL 20 MEQ/50 ML RIDER 20 MEQ/50 ML RTUPB IV SCH (10:57)
[2019-05-13] MEDS ORDERED: DIGOXIN INJ 0.5 MG/2 ML AMPULE ONE (11:50)
[2019-05-13] MEDS: FLUCONAZOLE 200 MG/NS RTU 200 MG/100 ML RTUPB IV SCH (12:17)
[2019-05-13] MEDS ORDERED: DIGOXIN INJ 0.5 MG/2 ML AMPULE IV ONE (12:30)
--- NOTE | 2019-05-13 15:36 | RADIOLOGY REPORT (SQ) ---
EXAM DESCRIPTION: CHEST SINGLE VIEW COMPLETED DATE/TIME: 05/13/2019 2:52 pm REASON FOR STUDY: Pneumonia and pleural effusion COMPARISON: 05/11/2019 EXAM PARAMETERS: NUMBER OF VIEWS: One view. TECHNIQUE: Single frontal radiographic view of the chest acquired. RADIATION DOSE: NA LIMITATIONS: None. FINDINGS: LUNGS AND PLEURA: Large left pleural effusion. Cannot exclude significant airspace diseas e in the left lower lobe. Cannot exclude mild pulmonary edema. MEDIASTINUM AND HILAR STRUCTURES: No masses. Contour normal. HEART AND VASCULAR STRUCTURES: Cardiomegaly. BONES: No acute findings. HARDWARE: None in the chest. OTHER: No other significant finding. IMPRESSION: Cardiomegaly. Cannot exclude mild pulmonary edema. Large left pleural effusion. Airsp andrew disease in the left lower lobe, pneumonia versus atelectasis. TECHNICAL DOCUMENTATION: JOB ID: [id number] [employer]- All Rights Reserved Reading location - IP/workstation name: [email or web address]
[2019-05-13 16:21] LABS: HEMATOCRIT 26.5 % (36.0-47.0); HEMOGLOBIN 8.5 g/dL (12.0-15.5); MEAN CORPUSCULAR HEMOGLOBIN 28.5 pg (27.0-33.4); MEAN CORPUSCULAR HGB CONC 31.9 g/dL (32.0-36.0); MEAN CORPUSCULAR VOLUME 89 fl (80-97); RED BLOOD COUNT 2.97 10^6/uL (3.72-5.28); RED CELL DISTRIBUTION WIDTH 16.2 % (11.5-14.0)
[2019-05-13 16:22] LABS: PLATELET COUNT 209 10^3/uL (150-450)
[2019-05-13 16:27] LABS: WHITE BLOOD COUNT 15.3 10^3/uL (4.0-10.5)
[2019-05-13 16:39] LABS: ABSOLUTE LYMPHOCYTES# (MANUAL) 0.5 10^3/uL (0.5-4.7); ABSOLUTE MONOCYTES # (MANUAL) 0.3 10^3/uL (0.1-1.4); ANISOCYTOSIS 1+; BASOPHILS % (MANUAL) 0 % (0-2); EOSINOPHILS % (MANUAL) 2 % (0-6); HYPOCHROMASIA SLIGHT; LYMPHOCYTES % (MANUAL) 3 % (13-45); MONOCYTES % (MANUAL) 2 % (3-13); PLATELET COMMENT ADEQUATE; SEGMENTED NEUTROPHILS % (MAN) 93 % (42-78); TOTAL CELLS COUNTED 100; TOXIC GRANULATION 1+; TOXIC VACUOLATION PRESENT
[2019-05-13] MEDS: VANCOMYCIN HCL 500 MG in DEXTROSE 5%-WATER 100 ML IV SCH (17:11)
--- NOTE | 2019-05-13 21:28 | ADVANCED CARE ---
- Diagnosis (1) Possible healthcare associated pneumonia Diagnosis Current: Yes (2) Complicated UTI (urinary tract infection) Diagnosis Current: Yes (3) A-fib Diagnosis Current: Yes (4) Bipolar disorder Diagnosis Current: Yes (5) Hypertension Diagnosis Current: Yes (6) Hypernatremia Diagnosis Current: Yes (7) Hypokalemia Diagnosis Current: Yes (8) Anemia Diagnosis Current: Yes (9) Leukocytosis Diagnosis Current: Yes Attendance: The patient, her son and his niece were all present. Resuscitation Status: Do Not Resuscitate Discussion: The discussion was mostly based on consideration of change in the current treatment plan. The patient was on home hospice but returned to the hospital. The son insisted on investigating for urinary tract infection and providing treatment for this as he feels this might make his mother better. I pointed out that this is unlikely. I also pointed out that her hemoglobin was 7.2 and has been declining. I pointed out that she is developing pleural effusion and still has the infiltrate representing pneumonia. 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 He was able to speak very loudly into her ear and get her to respond which she would not do for me earlier today. The patient is fixated on not leaving any condition untreated before returning to hospice. I explained that her recovery is in the past were one thing but with her advanced age and multiple comorbidities at this time her survival is very unlikely. Despite review of her conditions the patient's son held onto the believe that his mother might get better with treating the urinary infection. He realizes her survivability is extremely unlikely but does not want to feel guilty about not trying to treat things that may have prevented her demise. We are going to see how she does through tonight and reassess in the morning. I do not think it will change the prognosis. I think the patient would qualify for inpatient hospice. [facility] I truly believe this is where she will end up as I do not believe she is going to respond to the fluconazole. Her white blood cell count did improve with the addition of the 2 antibiotics. Unfortunately the patient's condition does not merely improvement in her CBC. The patient continued to state that he was not trying to be difficult but he would feel guilty if she from a urinary infection that could have been treated. I tried to explain that she has other considerably more significant comorbidities and that treating the urine is not going to fix any of those. He still wanted to continue the current treatment plan and regroup in the morning. Care Planning Goals: To determine disposition after this hospitalization. Inpatient hospice versus home with hospice so the 2 most likely considerations. Document(s) Completed: None Time Spent: 20
[2019-05-14] MEDS: DEXTROSE 5%-1/2 NORMAL SALINE 1,000 ML IV PRN ×2 (02:14→10:04)
[2019-05-14] MEDS: FENTANYL CITRATE INJ/PF 100 MCG/2 ML AMPUL IV PRN (02:15)
[2019-05-14] MEDS: DIGOXIN 0.125 MG TABLET PO SCH (09:52)
[2019-05-14] MEDS: METOPROLOL TARTRATE 25 MG TABLET PO SCH ×2 (09:52→21:16)
[2019-05-14] MEDS: FLUCONAZOLE 200 MG/NS RTU 200 MG/100 ML RTUPB IV SCH (09:58)
[2019-05-14] MEDS: PANTOPRAZOLE SODIUM 40 MG VIAL IV SCH (10:00)
[2019-05-14] MEDS: ENOXAPARIN SODIUM INJ 30 MG/0.3 ML DISP.SYRIN SUBCUT SCH (10:01)
[2019-05-14] MEDS: CEFEPIME HCL 2 GM in DEXTROSE 5%-WATER 50 ML IV SCH ×2 (11:23→21:14)
[2019-05-14] MEDS: POTASSI CL 20 MEQ/50 ML RIDER 20 MEQ/50 ML RTUPB IV SCH (12:53)
--- NOTE | 2019-05-14 13:20 | PDOC PROGRESS REPORT ---
Subjective Progress Note for:: 05/14/19 Subjective:: Patient is intermittently verbal but not meaningful. She blurted out I am hungry during the encounter but did not respond to any questions. Reason For Visit: [facility] Physical Exam Vital Signs: Temp Pulse Resp BP Pulse Ox 97.3 F 99 15 104/44 L 100 05/13/19 23:37 05/14/19 02:00 05/13/19 23:37 05/13/19 23:37 05/13/19 23:37 Intake & Output 05/13/19 05/14/19 05/15/19 06:59 06:59 06:59 Intake Total 2250 3144 1129 Output Total 605 2575 Balance 1032 940 6824 Weight 45.3 kg 41.5 kg General appearance: PRESENT: mild distress, well-developed - Well-developed but very frail 88-year-old patient resting in bed. Head exam: PRESENT: atraumatic, normocephalic Eye exam: PRESENT: conjunctiva pale. ABSENT: scleral icterus Ear exam: PRESENT: normal external ear exam. ABSENT: bleeding, drainage Respiratory exam: PRESENT: decreased breath sounds, tachypnea - Slightly tachypneic. ABSENT: rales, rhonchi, wheezes Cardiovascular exam: PRESENT: RRR, +S1, +S2 GI/Abdominal exam: PRESENT: diminished bowel sounds, soft. ABSENT: distended, tenderness Rectal exam: PRESENT: deferred Musculoskeletal exam: PRESENT: other - Decreased muscle mass Neurological exam: PRESENT: altered - Did not respond to verbal questions. She is lying in bed with eyes wide open but no meaningful interaction. Unable to assess orientation., awake Psychiatric exam: PRESENT: flat affect. ABSENT: agitated, anxious Focused psych exam: ABSENT: delusional, restlessness Skin exam: PRESENT: dry, pallor, warm Results Laboratory Results: 05/13/19 16:00 05/13/19 03:59 05/13/19 05/13/19 10:30 16:00 WBC Cancelled 15.3 H D RBC Cancelled 2.97 L Hgb Cancelled 8.5 L Hct Cancelled 26.5 L MCV Cancelled 89 MCH Cancelled 28.5 MCHC Cancelled 31.9 L RDW Cancelled 16.2 H Plt Count Cancelled 209 Seg Neutrophils % Cancelled Not Reportable 05/11/19 12:19 Troponin I 0.060 Impressions: Chest X-Ray 05/13/19 10:30 IMPRESSION: Cardiomegaly. Cannot exclude mild pulmonary edema. Large left pleural effusion. Airspace disease in the left lower lobe, pneumonia versus atelectasis. Assessment and Plan - Diagnosis (1) Possible healthcare associated pneumonia Is this a current diagnosis for this admission?: Yes Plan: 05/12/2019-the patient was discharged and readmitted within 24 hours. The blood and urine cultures were positive for a very sensitive Proteus mirabilis. It is possible that she picked up a gram-positive organism (staph or strep) and so for the time being we will continue the cefepime and vancomycin. There is dense consolidation and pleural effusion in the left lung. We will also monitor blood culture results. 05/13/2019-yesterday's white blood cell count was normal. Today's is pending. Sputum culture was unable to be obtained. The patient is on broad-spectrum antibiotic therapy with cefepime and vancomycin. I will repeat a chest x-ray to monitor the infiltrates and pleural effusion. With her hypernatremia she is requiring increased fluid. My concern is that more fluid will end up on her lungs. We will continue the antibiotic therapy at this time. 05/14/2019-the patient has not significantly improved despite ongoing antibiotics. I will ReachOut to the family for consideration of comfort measures only. (2) Complicated UTI (urinary tract infection) Is this a current diagnosis for this admission?: Yes Plan: 05/12/2019-urine culture is pending. The patient recently had Proteus mirabilis infection. It was quite sensitive. Clearly the cefepime will cover if the bacteria is present again. I will also cover for other bacteria that may be in the urine. Await urine culture results to narrow spectrum of antibiotics. 05/13/2019-urine culture results are back. It is a pure culture of Lydia greater than 100,000 colony-forming units per milliliter. Considering she was just on antibiotic therapy recently a true yeast infection is not unreasonable. I am going to add fluconazole and see if the patient responds. Because of her immobility we still need a Weathers catheter. In addition it is imperative to monitor intake and output. 05/14/2019-patient has not shown any improvement despite adding fluconazole for candiduria. (3) A-fib Qualifiers: Atrial fibrillation type: chronic Qualified Code(s): I48.2 - Chronic atrial fibrillation Is this a current diagnosis for this admission?: Yes Plan: 05/12/2019-her rate is slightly increased. I have resumed her digoxin and metoprolol with parameters to hold for bradycardia. On telemetry her rate is about 100. This is without her prior medications. Her rate should slow considerably when her old medications are reinstituted. She was on apixaban. She is currently on prophylactic Lovenox. She does have ODESSA hose in place as well. 05/13/2019-by auscultation she appears to be in a regular rhythm. Heart rate is well controlled. Blood pressure is reasonable. I will need to increase her fluids due to her hypernatremia. I will continue to monitor vital signs. At this point we will continue ODESSA hose and prophylactic Lovenox. 05/14/2019-no changes at this time. (4) Bipolar disorder Is this a current diagnosis for this admission?: Yes Plan: 05/12/2019-she is very quiet. She is nonverbal during this encounter. She is bennett te sedate. I will add back a lower dose of Risperdal than she was on an increase as appropriate. 05/13/2019-the patient again is nonverbal. 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 She has extremely limited spontaneous head movement. She does occasionally open her mouth spontaneously. She did not answer any questions either verbally or with nodding her head. I did add back a small dose of Risperdal all, lower than her original dose. Because she is showing no signs of shanthi I will discontinue the dose at this time and continue to monitor the patient. Unfortunately her risk of aspiration is quite high and she is not showing any interest or attempt to take oral medicines. If her level of function improves we can try small bits of pudding or applesauce. 05/14/2019-due to moribund state, bipolar is not an active clinical issue at this time (5) Hypertension Qualifiers: Hypertension type: essential hypertension Qualified Code(s): I10 - Essential (primary) hypertension Is this a current diagnosis for this admission?: Yes Plan: 05/12/2019-her blood pressures were low yesterday. They are higher today and so I have resumed the metoprolol. We will monitor pressure and adjust medications accordingly. I would like to see her systolic blood pressure less than 140 and her diastolic pressure less than 95. 05/13/2019-the patient continues on metoprolol and digoxin primarily for atrial fibrillation. Her blood pressure is tolerating these medications. Because of pleural effusions and the need for increased IV fluid I will give her a single dose of furosemide 10 mg IV and monitor urine output. We will continue to monitor intake and output and move towards a more neutral fluid balance however this will be difficult considering her hypernatremia. 05/14/2019-systolic pressure slightly higher than desired. We will continue to monitor. (6) Hypernatremia Is this a current diagnosis for this admission?: Yes Plan: 05/12/2019-her serum sodium is elevated. It is slightly higher than yesterday. And when to change her IV fluid to D5 half-normal saline at 80 mL an hour and recheck her labs tomorrow. 05/13/2019-despite changing to D5 half-normal saline her serum sodium is higher. I will increase the rate from 80 to 125 mL/h. We will need to monitor intake and output. As noted above I will give a dose of 10 mg IV furosemide. We will certainly need to monitor potassium with this. I will check electrolytes tomorrow to see if the IV fluid is helping her sodium level. 05/14/2019-again her serum sodium is not improved. We will need to discuss consideration of comfort measures with the patient's son. (7) Hypokalemia Is this a current diagnosis for this admission?: Yes Plan: 05/12/2019-serum potassium is slightly low. I will give 20 mEq of potassium chloride by IV and follow potassium levels. Replete potassium based on laboratory results. 05/13/2019-despite the IV 20 mEq dose yesterday the patient's serum potassium is only 3.4. I will give another dose today and give daily potassium. She is going to get 10 mg of Lasix to try and help the pleural effusion this may drop her potassium even lower. As she is not taking anything by mouth at this time we will manage her potassium with intravenous riders. With her extremely poor t o nonexistent oral intake she is not getting any dietary potassium either. We will continue to monitor her potassium level. 05/14/2019-serum potassium still remains difficult to control. Again she is just below the lower limit normal. (8) Anemia Qualifiers: Anemia type: unspecified type Qualified Code(s): D64.9 - Anemia, unspec ified Is this a current diagnosis for this admission?: Yes (9) Leukocytosis Qualifiers: Leukocytosis type: unspecified Qualified Code(s): D72.829 - Elevated white blood cell count, unspecified Is this a current diagnosis for this admission?: Yes - Time Time Spent with patient: 15-24 minutes Medications reviewed and adjusted accordingly: Yes
[2019-05-14] MEDS: VANCOMYCIN HCL 500 MG in DEXTROSE 5%-WATER 100 ML IV SCH (17:35)
[2019-05-14] MEDS ORDERED: 1/2 NORMAL SALINE 1,000 ML IV PRN (20:51)
--- NOTE | 2019-05-15 13:59 | PDOC PROGRESS REPORT ---
Subjective Progress Note for:: 05/15/19 Subjective:: The patient is no better. Nursing reports that the patient's son was visiting earlier would like to consider comfort measures only. Reason For Visit: [facility] Physical Exam Vital Signs: Temp Pulse Resp BP Pulse Ox 97.6 F 87 24 H 143/69 H 96 05/15/19 08:28 05/15/19 08:28 05/15/19 08:28 05/15/19 08:28 05/15/19 08:28 Intake & Output 05/14/19 05/15/19 05/16/19 06:59 06:59 06:59 Intake Total 3144 2329 Output Total 2575 1050 Balance 569 1279 Weight 41.5 kg 46.7 kg General appearance: PRESENT: no acute distress Eye exam: PRESENT: other - [place] the patient's eyes were open, today they are closed. She does not respond to command to open her eyes. Mouth exam: PRESENT: other - Yesterday she would spontaneously open her mouth. Today she is not. Respiratory exam: PRESENT: decreased breath sounds, symmetrical, unlabored. ABSENT: rales, rhonchi, wheezes Cardiovascular exam: PRESENT: irregular rhythm GI/Abdominal exam: PRESENT: diminished bowel sounds, soft. ABSENT: distended, tenderness Neurological exam: ABSENT: awake Psychiatric exam: ABSENT: agitated Focused psych exam: ABSENT: restlessness Skin exam: PRESENT: pallor Results Laboratory Results: 05/13/19 16:00 05/13/19 03:59 05/11/19 12:19 Troponin I 0.060 Impressions: Chest X-Ray 05/13/19 10:30 IMPRESSION: Cardiomegaly. Cannot exclude mild pulmonary edema. Large left pleural effusion. Airspace disease in the left lower lobe, pneumonia versus atelectasis. Assessment and Plan - Diagnosis (1) Possible healthcare associated pneumonia Is this a current diagnosis for this admission?: Yes Plan: 05/12/2019-the patient was discharged and readmitted within 24 hours. The blood and urine cultures were positive for a very sensitive Proteus mirabilis. It is possible that she picked up a gram-positive organism (staph or strep) and so for the time being we will continue the cefepime and vancomycin. There is dense consolidation and pleural effusion in the left lung. We will also monitor blood culture results. 05/13/2019-yesterday's white blood cell count was normal. Today's is pending. Sputum culture was unable to be obtained. The patient is on broad-spectrum antibiotic therapy with cefepime and vancomycin. I will repeat a chest x-ray to monitor the infiltrates and pleural effusion. With her hypernatremia she is requiring increased fluid. My concern is that more fluid will end up on her lungs. We will continue the antibiotic therapy at this time. 05/14/2019-the patient has not significantly improved despite ongoing antibiotics. I will ReachOut to the family for consideration of comfort measures only. 05/15/2019-I did have a chance to speak with the patient's son. Due to the lack of improvement after multiple days of aggressive therapy he has decided that it is reasonable to move to comfort measures. At this time I will discontinue antibiotics. (2) Complicated UTI (urinary tract infection) Is this a current diagnosis for this admission?: Yes Plan: 05/12/2019-urine culture is pending. The patient recently had Proteus mirabilis infection. It was quite sensitive. Clearly the cefepime will cover if the bacteria is present again. I will also cover for other bacteria that may be in the urine. Await urine culture results to narrow spectrum of antibiotics. 05/13/2019-urine culture results are back. It is a pure culture of Lydia greater than 100,000 colony-forming units per milliliter. Considering she was just on antibiotic therapy recently a true yeast infection is not unreasonable. I am going to add fluconazole and see if the patient responds. Because of her immobility we still need a Weathers catheter. In addition it is imperative to monitor intake and output. 05/14/2019-patient has not shown any improvement despite adding fluconazole for candiduria. 05/15/2019-we will discontinue fluconazole (3) A-fib Qualifiers: Atrial fibrillation type: chronic Qualified Code(s): I48.2 - Chronic atrial fibrillation Is this a current diagnosis for this admission?: Yes Plan: 05/12/2019-her rate is slightly increased. I have resumed her digoxin and metoprolol with parameters to hold for bradycardia. On telemetry her rate is about 100. This is without her prior medications. Her rate should slow considerably when her old medications are reinstituted. She was on apixaban. She is currently on prophylactic Lovenox. She does have ODESSA hose in place as well. 05/13/2019-by auscultation she appears to be in a regular rhythm. Heart rate is well controlled. Blood pressure is reasonable. I will need to increase her fluids due to her hypernatremia. I will continue to monitor vital signs. At this point we will continue ODESSA hose and prophylactic Lovenox. 05/14/2019-no changes at this time. 05/15/2019-as the patient is comfort measures only, all medications will be discontinued (4) Bipolar disorder Is this a current diagnosis for this admission?: Yes Plan: 05/12/2019-she is very quiet. She is nonverbal during this encounter. She is quite sedate. I will add back a lower dose of Risperdal than she was on an increase as appropriate. 05/13/2019-the patient again is nonverbal. 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 She has extremely limited spontaneous head movement. She does occasionally open her mouth spontaneously. She did not answer any questions either verbally or with nodding her head. I did add back a small dose of Risperdal all, lower than her original dose. Because she is showing no signs of shanthi I will discontinue the dose at this time and continue to monitor the patient. Unfortunately her risk of aspiration is quite high and she is not showing any interest or attempt to take oral medicines. If her level of function improves we can try small bits of pudding or applesauce. 05/14/2019-due to moribund state, bipolar is not an active clinical issue at this time (5) Hypertension Qualifiers: Hypertension type: essential hypertension Qualified Code(s): I10 - Essential (primary) hypertension Is this a current diagnosis for this admission?: Yes Plan: 05/12/2019-her blood pressures were low yesterday. They are higher today and so I have resumed the metoprolol. We will monitor pressure and adjust medications accordingly. I would like to see her systolic blood pressure less than 140 and her diastolic pressure less than 95. 05/13/2019-the patient continues on metoprolol and digoxin primarily for atrial fibrillation. Her blood pressure is tolerating these medications. Because of pleural effusions and the need for increased IV fluid I will give her a single dose of furosemide 10 mg IV and monitor urine output. We will continue to monitor intake and output and move towards a more neutral fluid balance however this will be difficult considering her hypernatremia. 05/14/2019-systolic pressure slightly higher than desired. We will continue to monitor. 05/15/2019-discontinue medications (6) Hypernatremia Is this a current diagnosis for this admission?: Yes Plan: 05/12/2019-her serum sodium is elevated. It is slightly higher than yesterday. And when to change her IV fluid to D5 half-normal saline at 80 mL an hour and recheck her labs tomorrow. 05/13/2019-despite changing to D5 half-normal saline her serum sodium is higher. I will increase the rate from 80 to 125 mL/h. We will need to monitor intake and output. As noted above I will give a dose of 10 mg IV furosemide. We will certainly need to monitor potassium with this. I will check electrolytes tomorrow to see if the IV fluid is helping her sodium level. 05/14/2019-again her serum sodium is not improved. We will need to discuss consideration of comfort measures with the patient's son. 05/15/2019-unfortunately patient did not respond to half-normal saline. She already had pleural effusions and balancing volume versus serum sodium was d ifficult. She is now comfort measures and IV fluids will be discontinued. (7) Hypokalemia Is this a current diagnosis for this admission?: Yes Plan: 05/12/2019-serum potassium is slightly low. I will give 20 mEq of potassium chloride by IV and follow potassium levels. Replete potassium based on laboratory results. 05/13/2019-despite the IV 20 mEq dose yesterday the patient's serum potassium is only 3.4. I will give another dose today and give daily potassium. She is going to get 10 mg of Lasix to try and help the pleural effusion this may drop her potassium even lower. As she is not taking anything by mouth at this time w e will manage her potassium with intravenous riders. With her extremely poor to nonexistent oral intake she is not getting any dietary potassium either. We will continue to monitor her potassium level. 05/14/2019-serum potassium still remains difficult to control. Again she is just below the lower limit normal. Will discontinue potassium supplementation at this time. (8) Anemia Qualifiers: Anemia type: unspecified type Qualified Code(s): D64.9 - Anemia, unspecified Is this a current diagnosis for this admission?: Yes Plan: 05/13/2019-her hemoglobin was only 7.2 yesterday. A CBC for today is pending. There is no obvious blood loss and so it is more likely a production issue. If the hemoglobin is lower I will discuss with the patient's son whether or not to transfuse. She was discharged on home hospice and with her overlying condition and poor prognosis it is more likely not to transfuse her. 05/15/2019-patient is comfort care. No further laboratory testing will be performed. (9) Leukocytosis Qualifiers: Leukocytosis type: unspecified Qualified Code(s): D72.829 - Elevated white blood cell count, unspecified Is this a current diagnosis for this admission?: Yes Plan: 05/13/2019-the patient did have an elevated white blood cell count on admission. With initiation of antibiotics and has resolved and is back to normal. The pneu monia or candiduria could have contributed. It is more likely both. 05/15/2019-the patient's white blood cell count jumped to 15,000. She is comfort care measures only we will no longer be performing laboratory studies. - Time Time Spent with patient: 25-34 minutes Medications reviewed and adjusted accordingly: Yes Anticipated discharge: Hospice - Plan Summary Plan Summary: After careful consideration, the patient's son is in agreement that his mother's prognosis is grave. He is comfortable that all measures have been attempted. Because of this he is requesting comfort measures only. We will try and protect her only IV for IV medications to achieve this.
[2019-05-15] MEDS: LORAZEPAM INJ 2 MG/1 ML VIAL IV PRN (14:42)
[2019-05-15] MEDS: FLUCONAZOLE 200 MG/NS RTU 200 MG/100 ML RTUPB IV SCH (14:45)
[2019-05-15] MEDS: CEFEPIME HCL 2 GM in DEXTROSE 5%-WATER 50 ML IV SCH (14:46)
[2019-05-15] MEDS: DIGOXIN 0.125 MG TABLET PO SCH (14:46)
[2019-05-15] MEDS: METOPROLOL TARTRATE 25 MG TABLET PO SCH (14:46)
[2019-05-15] MEDS: ENOXAPARIN SODIUM INJ 30 MG/0.3 ML DISP.SYRIN SUBCUT SCH (14:46)
[2019-05-15] MEDS: PANTOPRAZOLE SODIUM 40 MG VIAL IV SCH (14:46)
[2019-05-16] MEDS: LORAZEPAM INJ 2 MG/1 ML VIAL IV PRN ×2 (00:33→17:54)
[2019-05-16] MEDS ORDERED: ACETAMINOPHEN 650 MG SUPP.RECT PR PRN (09:52)
--- NOTE | 2019-05-16 09:55 | PDOC PROGRESS REPORT ---
Subjective Progress Note for:: 05/16/19 Subjective:: Patient is comfort care only at this point. She is not responsive to my verbal interaction. No spontaneous movements noted. She does not appear to be uncomfortable. Breathing is shallow but not labored. Reason For Visit: [facility]ON[facility] Physical Exam Vital Signs: Temp Pulse Resp BP Pulse Ox 98.0 F 83 23 H 138/70 H 99 05/15/19 12:01 05/16/19 07:00 05/15/19 12:01 05/15/19 12:01 05/15/19 12:01 Intake & Output 05/15/19 05/16/19 05/17/19 06:59 06:59 06:59 Intake Total 2329 1000 Output Total 1050 Balance 1279 1000 Weight 46.7 kg General appearance: PRESENT: no acute distress, thin - Thin and very frail appearing 88-year-old female resting in bed Head exam: PRESENT: atraumatic, normocephalic, other - Alopecia Eye exam: PRESENT: other - Eyes not opened Ear exam: PRESENT: normal external ear exam. ABSENT: bleeding, drainage Mouth exam: PRESENT: other - Did not examine Respiratory exam: PRESENT: clear to auscultation hang - Anteriorly. Shallow respirations., symmetrical. ABSENT: rales, rhonchi, tachypnea, wheezes Cardiovascular exam: PRESENT: RRR, +S1, +S2, systolic murmur - Soft systolic murmur, other - Distant heart sounds GI/Abdominal exam: PRESENT: diminished bowel sounds, soft. ABSENT: distended, tenderness Rectal exam: PRESENT: deferred Extremities exam: PRESENT: +1 edema - Mild upper extremity edema. ABSENT: pedal edema Musculoskeletal exam: PRESENT: other - Temporal wasting. Decreased muscle mass.. ABSENT: ambulatory Neurological exam: ABSENT: awake Psychiatric exam: ABSENT: agitated Focused psych exam: ABSENT: restlessness Skin exam: PRESENT: pallor, other - Very thin fragile skin with occasional ecchymotic lesions. Results Laboratory Results: 05/13/19 16:00 05/13/19 03:59 05/11/19 12:19 Troponin I 0.060 Impressions: Chest X-Ray 05/13/19 10:30 IMPRESSION: Cardiomegaly. Cannot exclude mild pulmonary edema. Large left pleural effusion. Airspace disease in the left lower lobe, pneumonia versus atelectasis. Assessment and Plan - Diagnosis (1) Possible healthcare associated pneumonia Is this a current diagnosis for this admission?: Yes Plan: 05/12/2019-the patient was discharged and readmitted within 24 hours. The blood and urine cultures were positive for a very sensitive Proteus mirabilis. It is possible that she picked up a gram-positive organism (staph or strep) and so for the time being we will continue the cefepime and vancomycin. There is dense consolidation and pleural effusion in the left lung. We will also monitor blood culture results. 05/13/2019-yesterday's white blood cell count was normal. Today's is pending. Sputum culture was unable to be obtained. The patient is on broad-spectrum an tibiotic therapy with cefepime and vancomycin. I will repeat a chest x-ray to monitor the infiltrates and pleural effusion. With her hypernatremia she is requiring increased fluid. My concern is that more fluid will end up on her lungs. We will continue the antibiotic therapy at this time. 05/14/2019-the patient has not significantly improved despite ongoing antibiotics. I will ReachOut to the family for consideration of comfort measures only. 05/15/2019-I did have a chance to speak with the patient's son. Due to the lack of improvement after multiple days of aggressive therapy he has decided that it is reasonable to move to comfort measures. At this time I will discontinue antibiotics. 05/16/2019-currently at comfort care only. Antibiotics discontinued. (2) Complicated UTI (urinary tract infection) Is this a current diagnosis for this admission?: Yes Plan: 05/12/2019-urine culture is pending. The patient recently had Proteus mirabilis infection. It was quite sensitive. Clearly the cefepime will cover if the bact eria is present again. I will also cover for other bacteria that may be in the urine. Await urine culture results to narrow spectrum of antibiotics. 05/13/2019-urine culture results are back. It is a pure culture of Lyida greater than 100,000 colony-forming units per milliliter. Considering she was just on antibiotic therapy recently a true yeast infection is not unreasonable. I am going to add fluconazole and see if the patient responds. Because of her immobility we still need a Weathers catheter. In addition it is imperative to monitor intake and output. 05/14/2019-patient has not shown any improvement despite adding fluconazole for candiduria. 05/15/2019-we will discontinue fluconazole 05/16/2019-currently on comfort care only. Fluconazole discontinued. (3) A-fib Qualifiers: Atrial fibrillation type: chronic Qualified Code(s): I48.2 - Chronic atrial fibrillation Is this a current diagnosis for this admission?: Yes Plan: 05/12/2019-her rate is slightly increased. I have resumed her digoxin and metoprolol with parameters to hold for bradycardia. On telemetry her rate is about 100. This is without her prior medications. Her rate should slow considerably when her old medications are reinstituted. She was on apixaban. She is currently on prophylactic Lovenox. She does have ODESSA hose in place as well. 05/13/2019-by auscultation she appears to be in a regular rhythm. Heart rate is well controlled. Blood pressure is reasonable. I will need to increase her fluids due to her hypernatremia. I will continue to monitor vital signs. At this point we will continue ODESSA hose and prophylactic Lovenox. 05/14/2019-no changes at this time. 05/15/2019-as the patient is comfort measures only, all medications will be discontinued 05/16/2019-no longer on telemetry. Medications have been discontinued. (4) Bipolar disorder Is this a current diagnosis for this admission?: Yes Plan: 05/12/2019-she is very quiet. She is nonverbal during this encounter. She is quite sedate. I will add back a lower dose of Risperdal than she was on an increase as appropriate. 05/13/2019-the patient again is nonverbal. 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 She has extremely limited spontaneous head movement. She does occasionally open her mouth spontaneously. She did not answer any questions either verbally or with n odding her head. I did add back a small dose of Risperdal all, lower than her original dose. Because she is showing no signs of shanthi I will discontinue the dose at this time and continue to monitor the patient. Unfortunately her risk of aspiration is quite high and she is not showing any interest or attempt to take oral medicines. If her level of function improves we can try small bits of pudding or applesauce. 05/14/2019-due to moribund state, bipolar is not an active clinical issue at this time 05/16/2019-comfort care only. Medications available include morphine and lorazepam for agitation. (5) Hypertension Qualifiers: Hypertension type: essential hypertension Qualified Code(s): I10 - Essential (primary) hypertension Is this a current diagnosis for this admission?: Yes Plan: 05/12/2019-her blood pressures were low yesterday. They are higher today and so I have resumed the metoprolol. We will monitor pressure and adjust medications accordingly. I would like to see her systolic blood pressure less than 140 and her diastolic pressure less than 95. 05/13/2019-the patient continues on metoprolol and digoxin primarily for atrial fibrillation. Her blood pressure is tolerating these medications. Because of pleural effusions and the need for increased IV fluid I will give her a single dose of furosemide 10 mg IV and monitor urine output. We will continue to monitor intake and output and move towards a more neutral fluid balance however this will be difficult considering her hypernatremia. 05/14/2019-systolic pressure slightly higher than desired. We will continue to monitor. 05/15/2019-discontinue medications 05/16/2019-medications have been discontinued. Minimal vital signs being obtained. (6) Hypernatremia Is this a current diagnosis for this admission?: Yes Plan: 05/12/2019-her serum sodium is elevated. It is slightly higher than yesterday. And when to change her IV fluid to D5 half-normal saline at 80 mL an hour and recheck her labs tomorrow. 05/13/2019-despite changing to D5 half-normal saline her serum sodium is higher. I will increase the rate from 80 to 125 mL/h. We will need to monitor intake and output. As noted above I will give a dose of 10 mg IV furosemide. We will certainly need to monitor potassium with this. I will check electrolytes tomorrow to see if the IV fluid is helping her sodium level. 05/14/2019-again her serum sodium is not improved. We will need to discuss consideration of comfort measures with the patient's son. 05/15/2019-unfortunately patient did not respond to half-normal saline. She already had pleural effusions and balancing volume versus serum sodium was difficult. She is now comfort measures and IV fluids will be discontinued. 05/16/2019-no further laboratory studies or IV fluid. (7) Hypokalemia Is this a current diagnosis for this admission?: Yes Plan: 05/12/2019-serum potassium is slightly low. I will give 20 mEq of potassium chloride by IV and follow potassium levels. Replete potassium based on laboratory results. 05/13/2019-despite the IV 20 mEq dose yesterday the patient's serum potassium is only 3.4. I will give another dose today and give daily potassium. She is going to get 10 mg of Lasix to try and help the pleural effusion this may drop h er potassium even lower. As she is not taking anything by mouth at this time we will manage her potassium with intravenous riders. With her extremely poor to nonexistent oral intake she is not getting any dietary potassium either. We will continue to monitor her potassium level. 05/14/2019-serum potassium still remains difficult to control. Again she is just below the lower limit normal. Will discontinue potassium supplementation at this time. 05/16/2019-no further medication or laboratory studies for potassium (8) Anemia Qualifiers: Anemia type: unspecified type Qualified Code(s): D64.9 - Anemia, unspecified Is this a current diagnosis for this admission?: Yes Plan: 05/13/2019-her hemoglobin was only 7.2 yesterday. A CBC for today is pending. There is no obvious blood loss and so it is more likely a production issue. If the hemoglobin is lower I will discuss with the patient's son whether or not to transfuse. She was discharged on home hospice and with her overlying condition and poor prognosis it is more likely not to transfuse her. 05/15/2019-patient is comfort care. No further laboratory testing will be performed. 05/16/2019-no further laboratory studies (9) Leukocytosis Qualifiers: Leukocytosis type: unspecified Qualified Code(s): D72.829 - Elevated white blood cell count, unspecified Is this a current diagnosis for this admission?: Yes Plan: 05/13/2019-the patient did have an elevated white blood cell count on admission. With initiation of antibiotics and has resolved and is back to normal. The pneumonia or candiduria could have contributed. It is more likely both. 05/15/2019-the patient's white blood cell count jumped to 15,000. She is comfort care measures only we will no longer be performing laboratory studies. 05/16/2019-no further laboratory studies - Time Time Spent with patient: Less than 15 minutes Anticipated discharge: Hospice - Plan Summary Plan Summary: The patient has been comfort care only as of yesterday afternoon. All medications except morphine, lorazepam and acetaminophen been discontinued. Minimal vital signs and no further laboratory studies. Patient does appear comfortable at this time.
[2019-05-16 10:02] VITALS: BP 97/47
[2019-05-16] MEDS: MORPHINE SULFATE 10 MG/ML INJ IV PRN ×2 (12:53→15:29)
[2019-05-17] MEDS: LORAZEPAM INJ 2 MG/1 ML VIAL IV PRN ×2 (02:42→11:59)
[2019-05-17] MEDS: MORPHINE SULFATE 10 MG/ML INJ IV PRN (08:56)
--- NOTE | 2019-05-17 10:32 | PDOC PROGRESS REPORT ---
Subjective Progress Note for:: 05/17/19 Subjective:: The patient appears to be losing muscle mass daily. She is quite cachectic more so than previously. Patient is exhibiting agonal breathing. Her daughter is at the bedside. Reason For Visit: [facility]OCI[facility]EMON[facility] Physical Exam Vital Signs: Temp Pulse Resp BP Pulse Ox 98.2 F 80 18 97/47 L 97 05/16/19 07:55 05/17/19 02:00 05/16/19 07:55 05/16/19 07:55 05/16/19 07:55 Intake & Output 05/16/19 05/17/19 05/18/19 06:59 06:59 06:59 Intake Total 1000 Balance 1000 General appearance: PRESENT: mild distress, thin Head exam: PRESENT: other - Cachectic Respiratory exam: PRESENT: clear to auscultation hang - Anteriorly, symmetrical, other - Agonal. ABSENT: rhonchi, stridor Cardiovascular exam: PRESENT: irregular rhythm GI/Abdominal exam: PRESENT: diminished bowel sounds, soft. ABSENT: distended Neurological exam: ABSENT: alert - Unresponsive Results Laboratory Results: 05/13/19 16:00 05/13/19 03:59 05/11/19 15:00 Blood Blood Culture - Final NO GROWTH IN 5 DAYS 05/11/19 12:19 Blood Blood Culture - Final NO GROWTH IN 5 DAYS 05/11/19 12:19 Troponin I 0.060 Impressions: Chest X-Ray 05/13/19 10:30 IMPRESSION: Cardiomegaly. Cannot exclude mild pulmonary edema. Large left pleural effusion. Airspace disease in the left lower lobe, pneumonia versus atelectasis. Assessment and Plan - Diagnosis (1) Possible healthcare associated pneumonia Is this a current diagnosis for this admission?: Yes Plan: 05/12/2019-the patient was discharged and readmitted within 24 hours. The blood and urine cultures were positive for a very sensitive Proteus mirabilis. It is possible that she picked up a gram-positive organism (staph or strep) and so for the time being we will continue the cefepime and vancomycin. There is dense consolidation and pleural effusion in the left lung. We will also monitor blood culture results. 05/13/2019-yesterday's white blood cell count was normal. Today's is pending. Sputum culture was unable to be obtained. The patient is on broad-spectrum antibiotic therapy with cefepime and vancomycin. I will repeat a chest x-ray to monitor the infiltrates and pleural effusion. With her hypernatremia she is requiring increased fluid. My concern is that more fluid will end up on her lungs. We will continue the antibiotic therapy at this time. 05/14/2019-the patient has not significantly improved despite ongoing antibiotics. I will ReachOut to the family for consideration of comfort measures only. 05/15/2019-I did have a chance to speak with the patient's son. Due to the lack of improvement after multiple days of aggressive therapy he has decided that it is reasonable to move to comfort measures. At this time I will discontinue antibiotics. 05/16/2019-currently at comfort care only. Antibiotics discontinued. 05/17/2019-no longer on antibiotics. Patient is actually starting to exhibit agonal breathing. (2) Complicated UTI (urinary tract infection) Is this a current diagnosis for this admission?: Yes Plan: 05/12/2019-urine culture is pending. The patient recently had Proteus mirabilis infection. It was quite sensitive. Clearly the cefepime will cover if the bacteria is present again. I will also cover for other bacteria that may be in the urine. Await urine culture results to narrow spectrum of antibiotics. 05/13/2019-urine culture results are back. It is a pure culture of Lydia greater than 100,000 colony-forming units per milliliter. Considering she was just on antibiotic therapy recently a true yeast infection is not unreasonable. I am going to add fluconazole and see if the patient responds. Because of her immobility we still need a Weathers catheter. In addition it is imperative to monitor intake and output. 05/14/2019-patient has not shown any improvement despite adding fluconazole for candiduria. 05/15/2019-we will discontinue fluconazole 05/16/2019-currently on comfort care only. Fluconazole discontinued. 05/17/2019-as above (3) A-fib Qualifiers: Atrial fibrillation type: chronic Qualified Code(s): I48.2 - Chronic atrial fibrillation Is this a current diagnosis for this admission?: Yes Plan: 05/12/2019-her rate is slightly increased. I have resumed her digoxin and meto prolol with parameters to hold for bradycardia. On telemetry her rate is about 100. This is without her prior medications. Her rate should slow considerably when her old medications are reinstituted. She was on apixaban. She is currently on prophylactic Lovenox. She does have ODESSA hose in place as well. 05/13/2019-by auscultation she appears to be in a regular rhythm. Heart rate is well controlled. Blood pressure is reasonable. I will need to increase her fluids due to her hypernatremia. I will continue to monitor vital signs. At this point we will continue ODESSA hose and prophylactic Lovenox. 05/14/2019-no changes at this time. 05/15/2019-as the patient is comfort measures only, all medications will be discontinued 05/16/2019-no longer on telemetry. Medications have been discontinued. 05/17/2019-rhythm is irregular and variable. We will continue comfort care at this time. The patient still has a reasonable rate despite being off of medication. (4) Bipolar disorder Is this a current diagnosis for this admission?: Yes Plan: 05/12/2019-she is very quiet. She is nonverbal during this encounter. She is quite sedate. I will add back a lower dose of Risperdal than she was on an increase as appropriate. 05/13/2019-the patient again is nonverbal. 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 She has extremely limited spontaneous head movement. She does occasionally open her mouth spontaneously. She did not answer any questions either verbally or with nodding her head. I did add back a small dose of Risperdal all, lower than her original dose. Because she is showing no signs of shanthi I will discontinue the dose at this time and continue to monitor the patient. Unfortunately her risk of aspiration is quite high and she is not showing any interest or attempt to take oral medicines. If her level of function improves we can try small bits of pudding or applesauce. 05/14/2019-due to moribund state, bipolar is not an active clinical issue at this time 05/16/2019-comfort care only. Medications available include morphine and lo razepam for agitation. 05/17/2019-comfort measures only with PRN medication for pain, agitation or air hunger. No periods of agitation over the last several days. (5) Hypertension Qualifiers: Hypertension type: essential hypertension Qualified Code(s): I10 - Essential (primary) hypertension Is this a current diagnosis for this admission?: Yes Plan: 05/12/2019-her blood pressures were low yesterday. They are higher today and so I have resumed the metoprolol. We will monitor pressure and adjust medications accordingly. I would like to see her systolic blood pressure less than 140 and her diastolic pressure less than 95. 05/13/2019-the patient continues on metoprolol and digoxin primarily for atrial fibrillation. Her blood pressure is tolerating these medications. Because of pleural effusions and the need for increased IV fluid I will give her a single dose of furosemide 10 mg IV and monitor urine output. We will continue to monitor intake and output and move towards a more neutral fluid balance however this will be difficult considering her hypernatremia. 05/14/2019-systolic pressure slightly higher than desired. We will continue to monitor. 05/15/2019-discontinue medications 05/16/2019-medications have been discontinued. Minimal vital signs being obtained. 05/17/2019-the patient has been off of medication and her blood pressure is declining. We are trying to minimize vital signs as the patient is comfort measures only. (6) Hypernatremia Is this a current diagnosis for this admission?: Yes Plan: 05/12/2019-her serum sodium is elevated. It is slightly higher than yesterday. And when to change her IV fluid to D5 half-normal saline at 80 mL an hour and recheck her labs tomorrow. 05/13/2019-despite changing to D5 half-normal saline her serum sodium is higher. I will increase the rate from 80 to 125 mL/h. We will need to monitor intake and output. As noted above I will give a dose of 10 mg IV furosemide. We will certainly need to monitor potassium with this. I will check electrolytes tomorrow to see if the IV fluid is helping her sodium level. 05/14/2019-again her serum sodium is not improved. We will need to discuss consideration of comfort measures with the patient's son. 05/15/2019-unfortunately patient did not respond to half-normal saline. She already had pleural effusions and balancing volume versus serum sodium was difficult. She is now comfort measures and IV fluids will be discontinued. 05/16/2019-no further laboratory studies or IV fluid. 05/17/2019-no more blood draws (7) Hypokalemia Is this a current diagnosis for this admission?: Yes Plan: 05/12/2019-serum potassium is slightly low. I will give 20 mEq of potassium chloride by IV and follow potassium levels. Replete potassium based on l aboratory results. 05/13/2019-despite the IV 20 mEq dose yesterday the patient's serum potassium is only 3.4. I will give another dose today and give daily potassium. She is going to get 10 mg of Lasix to try and help the pleural effusion this may drop her potassium even lower. As she is not taking anything by mouth at this time we will manage her potassium with intravenous riders. With her extremely poor to nonexistent oral intake she is not getting any dietary potassium either. We will continue to monitor her potassium level. 05/14/2019-serum potassium still remains difficult to control. Again she is just below the lower limit normal. Will discontinue potassium supplementation at this time. 05/16/2019-no further medication or laboratory studies for potassium 05/17/2019-no more blood draws (8) Anemia Qualifiers: Anemia type: unspecified type Qualified Code(s): D64.9 - Anemia, unspecified Is this a current diagnosis for this admission?: Yes Plan: 05/13/2019-her hemoglobin was only 7.2 yesterday. A CBC for today is pending. There is no obvious blood loss and so it is more likely a production issue. If the hemoglobin is lower I will discuss with the patient's son whether or not to transfuse. She was discharged on home hospice and with her overlying condition and poor prognosis it is more likely not to transfuse her. 05/15/2019-patient is comfort care. No further laboratory testing will be performed. 05/16/2019-no further laboratory studies 05/17/2019-no more blood draws (9) Leukocytosis Qualifiers: Leukocytosis type: unspecified Qualified Code(s): D72.829 - Elevated white blood cell count, unspecified Is this a current diagnosis for this admission?: Yes Plan: 05/13/2019-the patient did have an elevated white blood cell count on admission. With initiation of antibiotics and has resolved and is back to normal. The pneumonia or candiduria could have contributed. It is more likely both. 05/15/2019-the patient's white blood cell count jumped to 15,000. She is comfort care measures only we will no longer be performing laboratory studies. 05/16/2019-no further laboratory studies 05/17/2019-no more blood draws which are true - Time Time Spent with patient: 15-24 minutes Medications reviewed and adjusted accordingly: Yes Anticipated discharge: Other - Prognosis grave Within: Other - Life expectancy 24 hours or less - Plan Summary Plan Summary: We will continue comfort care measures. The breathing is agonal this morning and so he was give an as needed dose of morphine. It is my belief that the patient will within the next 24 hours.
[2019-05-18] MEDS: MORPHINE SULFATE 10 MG/ML INJ IV PRN ×4 (04:02→18:10)
[2019-05-18] MEDS: LORAZEPAM INJ 2 MG/1 ML VIAL IV PRN ×2 (09:10→20:30)
--- NOTE | 2019-05-18 20:10 | PDOC PROGRESS REPORT ---
Subjective Progress Note for:: 05/18/19 Subjective:: Markedly cachectic patient unresponsive resting in bed Reason For Visit: [facility] Physical Exam Vital Signs: Temp Pulse Resp BP Pulse Ox 98.2 F 79 18 97/47 L 97 05/16/19 07:55 05/18/19 07:00 05/16/19 07:55 05/16/19 07:55 05/16/19 07:55 Intake & Output 05/17/19 05/18/19 05/19/19 06:59 06:59 06:59 Output Total 100 Balance -100 General appearance: PRESENT: no acute distress, other - Unresponsive to verbal or painful stimuli Head exam: PRESENT: other - Marked temporal wasting Eye exam: PRESENT: other - Eyes closed Mouth exam: PRESENT: dry mucosa - Mucosa appears to be dry Respiratory exam: PRESENT: other - Agonal shallow breathing Cardiovascular exam: PRESENT: irregular rhythm GI/Abdominal exam: PRESENT: hypoactive bowel sounds, soft. ABSENT: distended Extremities exam: ABSENT: pedal edema Musculoskeletal exam: ABSENT: ambulatory Neurological exam: ABSENT: awake Psychiatric exam: ABSENT: agitated Focused psych exam: ABSENT: restlessness Results Laboratory Results: 05/13/19 16:00 05/13/19 03:59 05/11/19 12:19 Troponin I 0.060 Impressions: Chest X-Ray 05/13/19 10:30 IMPRESSION: Cardiomegaly. Cannot exclude mild pulmonary edema. Large left pleural effusion. Airspace disease in the left lower lobe, pneumonia versus atelectasis. Assessment and Plan - Diagnosis (1) Possible healthcare associated pneumonia Is this a current diagnosis for this admission?: Yes (2) Complicated UTI (urinary tract infection) Is this a current diagnosis for this admission?: Yes (3) A-fib Qualifiers: Atrial fibrillation type: chronic Qualified Code(s): I48.2 - Chronic atrial fibrillation Is this a current diagnosis for this admission?: Yes (4) Bipolar disorder Is this a current diagnosis for this admission?: Yes (5) Hypertension Qualifiers: Hypertension type: essential hypertension Qualified Code(s): I10 - Essential (primary) hypertension Is this a current diagnosis for this admission?: Yes (6) Hypernatremia Is this a current diagnosis for this admission?: Yes (7) Hypokalemia Is this a current diagnosis for this admission?: Yes (8) Anemia Qualifiers: Anemia type: unspecified type Qualified Code(s): D64.9 - Anemia, unspecified Is this a current diagnosis for this admission?: Yes (9) Leukocytosis Qualifiers: Leukocytosis type: unspecified Qualified Code(s): D72.829 - Elevated white blood cell count, unspecified Is this a current diagnosis for this admission?: Yes
[2019-05-19] MEDS: MORPHINE SULFATE 10 MG/ML INJ IV PRN (01:19)
--- NOTE | 2019-05-19 04:36 | Death Summary ---
Summary Date : 05/19/19 Time of :: 02:26 Autopsy: No Resuscitation Status: Comfort Measures Only Primary Care Provider: MINNIE CASTRO MD - Final Diagnosis (1) Possible healthcare associated pneumonia Is this a current diagnosis for this admission?: Yes (2) Septic shock Is this a current diagnosis for this admission?: Yes (3) A-fib Is this a current diagnosis for this admission?: Yes (4) Complicated UTI (urinary tract infection) Is this a current diagnosis for this admission?: Yes Hospital Course:: SHANNON BEAN is a 88 year old female patient with a past medical history of bipolar disorder, dementia, hypertension, congestive heart failure and atrial fibrillation brought from home by her son with chief complaint of altered mental status. She was discharged yesterday from ICU after she was treated for septic shock and A. fib with RVR. Her blood work showed mild leukocytosis of 12.3, hemoglobin of 8 and her urinalysis positive for pyuria and leukocyte esterase. Her chest x-ray reported as compared to the recent prior, showed worsening aeration with consolidation and volume loss in the left lung base and increased pleural fluid. Patient was originally treated with IV antibiotics including vancomycin and cefepime. She did not respond to antibiotic therapy and continued a downhill course where the family after witnessing her condition requested that she be placed on comfort measures only status. This was done promptly and over the course of the next 5 days Shannon continued to decline and eventually with dignity at 02:26 AM on 05/19/2019 resting peacefully in her bed.
== END 2019-05-19 03:40 | DRG 194 ==
LOC: ER 12:10 → EH 18:38 → ICU 21:52 → 5 05-13 18:19
PROVIDERS: ADMIT Internal Medicine; ATTEND Internal Medicine
DX: J18.9 Pneumonia, unspecified organism (principal); E87.0 Hyperosmolality and hypernatremia; B37.49 Other urogenital candidiasis; R64 Cachexia; Z51.5 Encounter for palliative care; I48.2 Chronic atrial fibrillation; Z88.6 Allergy status to analgesic agent; E87.6 Hypokalemia; D72.829 Elevated white blood cell count, unspecified; D64.9 Anemia, unspecified; Z66 Do not resuscitate; F31.9 Bipolar disorder, unspecified; F03.90 Unspecified dementia, unspecified severity, without behavioral disturbance, psychotic disturbance, mood disturbance, and anxiety; I11.0 Hypertensive heart disease with heart failure; I50.9 Heart failure, unspecified; M19.90 Unspecified osteoarthritis, unspecified site; Z86.73 Personal history of transient ischemic attack (TIA), and cerebral infarction without residual deficits; Z88.8 Allergy status to other drugs, medicaments and biological substances; Z79.899 Other long term (current) drug therapy; Z79.02 Long term (current) use of antithrombotics/antiplatelets; Z82.3 Family history of stroke; Z82.49 Family history of ischemic heart disease and other diseases of the circulatory system
CPT/HCPCS: 36415; 71045; 80048; 80053; 81001; 82803; 83605; 83735; 84484; 85025; 85610; 87040; 87086; 93005; 93010; 96365; 99285; J0692; J1160; J1450; J1650; J1940; J2060; J2270; J2543; J3010; J3370; J3480; J7030; J7060; S0164